=== PATIENT | male | born 1995 | race Caucasian/White ===

== ENCOUNTER 2021-05-01 12:46 | Emergency (ER) | payer OTHER ==
[2021-05-01 13:44] LABS: #Basophils 0.1 thou/uL (0.0-0.2); #Eosinphils 0.1 thou/uL (0.0-0.7); #Lymphocytes 1.7 thou/uL (1.20-3.40); #Monocytes 0.4 thou/uL (0.11-0.59); #Neutrophils 4.5 thou/uL (1.40-6.50); %Basophils 0.8 % (0.0-1.0); %Eosinophils 1.9 % (0.0-10.0); %Lymphocytes 25.4 % (21.0-51.0); %Monocytes 5.1 % (0.0-10.0); %Neutrophils 66.8 % (42.0-75.0); Mean Corpuscular Hemoglobin 28.8 pg (27.0-31.0); Mean Corpuscular Volume 84.8 fL (78.0-98.0); Mean Platelet Volume 7.9 fL (7.4-10.4); Platelet Count 199 thou/uL (130-400); RBC Distribution Width 12.6 % (11.5-14.5); Red Blood Cell (RBC) Count 5.19 mill/uL (4.70-6.10); White Blood Cell (WBC) Count 6.8 thou/uL (4.8-10.8)
[2021-05-01 14:05] LABS: ALT (SGPT) 71 U/L (8-55); AST (SGOT) 45 U/L (5-34); Albumin 4.5 g/dL (3.5-5.0); Alkaline Phosphatase 86 U/L (40-110); Anion Gap 12 mmol/L (10-20); BUN (Urea Nitrogen) 10 mg/dL (8.9-20.6); Bilirubin, Total 0.5 mg/dL (0.2-1.2); Calc. Creatinine Clearance 0 mL/min (70-130); Calcium 9.6 mg/dL (7.8-10.44); Carbon Dioxide 25 mmol/L (22-29); Chloride 106 mmol/L (98-107); Globulin 3.2 g/dL (2.4-3.5); Glucose 110 mg/dL (70-105); Potassium 4.1 mmol/L (3.5-5.1); Protein, Total 7.7 g/dL (6.0-8.3); Sodium 139 mmol/L (136-145)
[2021-05-01 15:49] LABS: Bilirubin Negative (Negative); Blood, Urine Negative (Negative); Clarity Clear (Clear); Glucose, Urine (Dipstick) Normal (Negative); Ketone, Urine Negative (Negative); Leukocyte Negative Leu/uL (Negative); Nitrite Negative (Negative); Protein, Urine (Dipstick) Negative (Neg-Trace); Specific Gravity, Urine 1.012 (1.002-1.036); Urobilinogen Normal mg/dL (Less than 2)
[2021-05-01 16:18] LABS: Acetaminophen Less than 6.0 mcg/mL (10.0-30.0); Alcohol Less than 10 mg/dL (Less than 10); Salicylate Less than 8.0 mg/dL (15.0-30.0)
[2021-05-01] MEDS ORDERED: Lorazepam 1 MG TAB ONE (17:28)
[2021-05-01 17:43] LABS: Amphetamine Not Detected (NotDetected); Barbiturates Screen Not Detected (NotDetected); Benzodiazepine Screen Not Detected (NotDetected); Cocaine Metabolite Screen Not Detected (NotDetected); Methadone Not Detected (NotDetected); Methamphetamine Not Detected (NotDetected); Opiate Screen Not Detected (NotDetected); Oxycodone Screen Not Detected (NotDetected); Phencyclidine (PCP) Not Detected (NotDetected); THC/Cannabinoid Screen Detected (NotDetected); Tricyclic Screen Not Detected (NotDetected)
== END 2021-05-01 19:35 | disposition home or self-care (01) ==
LOC: ERS 12:46
DX: F32.9 Major depressive disorder, single episode, unspecified (principal); R45.851 Suicidal ideations; I10 Essential (primary) hypertension; Z87.891 Personal history of nicotine dependence; Z79.899 Other long term (current) drug therapy
CPT/HCPCS: 36415; 71045; 80053; 80306; 80307; 81003; 84443; 84484; 85025; 93005; 94760

== ENCOUNTER 2021-06-14 14:13 | Emergency (ER) | payer OTHER ==
[2021-06-14] MEDS ORDERED: Diazepam 5 MG TAB ONE (14:39)
== END 2021-06-14 16:02 | disposition home or self-care (01) ==
LOC: ERS 14:13
DX: F41.9 Anxiety disorder, unspecified (principal); F10.10 Alcohol abuse, uncomplicated; I10 Essential (primary) hypertension; Z79.899 Other long term (current) drug therapy
CPT/HCPCS: 71045; 93005

== ENCOUNTER 2021-07-29 10:34 | Emergency (ER) | payer OTHER ==
[2021-07-29] MEDS ORDERED: Lorazepam 2 MG/ML VIAL ONE ×3 (10:55→15:02)
[2021-07-29] MEDS ORDERED: Ondansetron PF 4 MG/2 ML Vial ONE (10:55)
[2021-07-29 12:11] LABS: Acetaminophen Less than 6.0 mcg/mL (10.0-30.0); Alcohol 131 mg/dL (Less than 10); Salicylate Less than 8.0 mg/dL (15.0-30.0)
[2021-07-29 12:25] LABS: #Basophils 0.1 thou/uL (0.0-0.2); #Lymphocytes 0.9 thou/uL (1.20-3.40); #Monocytes 0.4 thou/uL (0.11-0.59); #Neutrophils 5.3 thou/uL (1.40-6.50); %Basophils 0.8 % (0.0-1.0); %Eosinophils 0.3 % (0.0-10.0); %Lymphocytes 13.3 % (21.0-51.0); %Monocytes 6.3 % (0.0-10.0); %Neutrophils 79.3 % (42.0-75.0); Hemoglobin 14.3 g/dL (14.0-18.0); Mean Corpuscular HGB CONC 33.3 g/dL (32.0-36.0); Mean Corpuscular Hemoglobin 29.3 pg (27.0-31.0); Mean Platelet Volume 6.3 fL (7.4-10.4); Platelet Count 201 thou/uL (130-400); RBC Distribution Width 11.6 % (11.5-14.5); Red Blood Cell (RBC) Count 4.89 mill/uL (4.70-6.10); White Blood Cell (WBC) Count 6.7 thou/uL (4.8-10.8)
[2021-07-29 12:49] LABS: ALT (SGPT) 60 U/L (8-55); AST (SGOT) 58 U/L (5-34); Albumin 3.9 g/dL (3.5-5.0); Alkaline Phosphatase 84 U/L (40-110); Anion Gap 18 mmol/L (10-20); BUN (Urea Nitrogen) 10 mg/dL (8.9-20.6); Bilirubin, Total 0.4 mg/dL (0.2-1.2); Calc. Creatinine Clearance 0 mL/min (70-130); Calcium 8.1 mg/dL (7.8-10.44); Carbon Dioxide 24 mmol/L (22-29); Chloride 102 mmol/L (98-107); Globulin 3.3 g/dL (2.4-3.5); Glucose 109 mg/dL (70-105); Potassium 3.8 mmol/L (3.5-5.1); Protein, Total 7.2 g/dL (6.0-8.3); Sodium 140 mmol/L (136-145)
[2021-07-29] MEDS ORDERED: Ketorolac Tromethamine 30 MG/ML VIAL ONE (13:06)
== END 2021-07-29 15:48 | disposition home or self-care (01) ==
LOC: ERS 10:34
DX: F10.10 Alcohol abuse, uncomplicated (principal); Y90.6 Blood alcohol level of 120-199 mg/100 ml; I10 Essential (primary) hypertension; Z79.899 Other long term (current) drug therapy
CPT/HCPCS: 36415; 71045; 80053; 80307; 85025; 93005; 96374; 96375; 96376; J1885; J2060; J2405

== ENCOUNTER 2021-07-30 00:29 | Emergency (ER) | payer OTHER | END 2021-07-30 04:40 | disposition home or self-care (01) | LOC: ERS 00:29 | DX: F41.9 Anxiety disorder, unspecified (principal); F10.10 Alcohol abuse, uncomplicated; Y90.9 Presence of alcohol in blood, level not specified; I10 Essential (primary) hypertension; Z79.899 Other long term (current) drug therapy | CPT/HCPCS: 99283 ==

== ENCOUNTER 2021-08-06 21:16 | Emergency (ER) | payer OTHER ==
[2021-08-06 22:01] LABS: #Basophils 0.1 thou/uL (0.0-0.2); #Eosinphils 0.1 thou/uL (0.0-0.7); #Lymphocytes 2.6 thou/uL (1.20-3.40); #Monocytes 0.3 thou/uL (0.11-0.59); %Basophils 1.1 % (0.0-1.0); %Eosinophils 1.4 % (0.0-10.0); %Lymphocytes 43.1 % (21.0-51.0); %Monocytes 4.1 % (0.0-10.0); %Neutrophils 50.4 % (42.0-75.0); Hemoglobin 15.5 g/dL (14.0-18.0); Mean Corpuscular HGB CONC 34.2 g/dL (32.0-36.0); Mean Corpuscular Hemoglobin 30.1 pg (27.0-31.0); Mean Corpuscular Volume 88.1 fL (78.0-98.0); Mean Platelet Volume 6.1 fL (7.4-10.4); Platelet Count 226 thou/uL (130-400); RBC Distribution Width 12.3 % (11.5-14.5); Red Blood Cell (RBC) Count 5.14 mill/uL (4.70-6.10)
[2021-08-06 22:20] LABS: ALT (SGPT) 76 U/L (8-55); AST (SGOT) 63 U/L (5-34); Acetaminophen Less than 6.0 mcg/mL (10.0-30.0); Albumin 4.3 g/dL (3.5-5.0); Alcohol 381 mg/dL (Less than 10); Alkaline Phosphatase 87 U/L (40-110); Anion Gap 16 mmol/L (10-20); BUN (Urea Nitrogen) 10 mg/dL (8.9-20.6); Bilirubin, Total 0.3 mg/dL (0.2-1.2); Calc. Creatinine Clearance 0 mL/min (70-130); Calcium 9.1 mg/dL (7.8-10.44); Carbon Dioxide 29 mmol/L (22-29); Chloride 103 mmol/L (98-107); Globulin 3.7 g/dL (2.4-3.5); Glucose 111 mg/dL (70-105); Lipase 70 U/L (8-78); Potassium 3.7 mmol/L (3.5-5.1); Salicylate Less than 8.0 mg/dL (15.0-30.0); Sodium 144 mmol/L (136-145)
[2021-08-06] MEDS ORDERED: Lorazepam 2 MG/ML VIAL ONE (22:21)
[2021-08-06] MEDS ORDERED: Thiamine HCl 200 MG/2 ML VIAL SLOW IVP SCH (22:30)
[2021-08-06 23:36] LABS: Amphetamine Not Detected (NotDetected); Barbiturates Screen Not Detected (NotDetected); Benzodiazepine Screen Detected (NotDetected); Cocaine Metabolite Screen Not Detected (NotDetected); Methadone Not Detected (NotDetected); Methamphetamine Not Detected (NotDetected); Opiate Screen Not Detected (NotDetected); Oxycodone Screen Not Detected (NotDetected); Phencyclidine (PCP) Not Detected (NotDetected); THC/Cannabinoid Screen Not Detected (NotDetected); Tricyclic Screen Not Detected (NotDetected)
[2021-08-07] MEDS ORDERED: Lorazepam 2 MG/ML VIAL ONE ×5 (00:08→09:42)
== END 2021-08-07 14:51 | disposition home or self-care (01) ==
LOC: ERS 21:16
DX: F10.239 Alcohol dependence with withdrawal, unspecified (principal); R45.851 Suicidal ideations; I10 Essential (primary) hypertension; Z87.891 Personal history of nicotine dependence; Z79.899 Other long term (current) drug therapy
CPT/HCPCS: 36415; 71045; 80053; 80306; 80307; 83690; 84484; 85025; 93005; 96374; 96375; 96376; J2060; J3411

== ENCOUNTER 2021-08-08 22:27 | Emergency (ER) | payer OTHER ==
[2021-08-08] MEDS ORDERED: Ondansetron ODT 4 MG TAB ONE (22:58)
[2021-08-08] MEDS ORDERED: Sucralfate 1 GM/10 ML UDCUP ONE (22:58)
== END 2021-08-08 23:48 | disposition left against medical advice (07) ==
LOC: ERS 22:27
DX: R07.9 Chest pain, unspecified (principal); Z53.21 Procedure and treatment not carried out due to patient leaving prior to being seen by health care provider; I10 Essential (primary) hypertension
CPT/HCPCS: 71045; 93005; Q0162

== ENCOUNTER 2021-08-11 19:03 | Emergency (ER) | payer OTHER | END 2021-08-11 19:55 | disposition left against medical advice (07) | LOC: ERS 19:03 | DX: F10.129 Alcohol abuse with intoxication, unspecified (principal); Y90.2 Blood alcohol level of 40-59 mg/100 ml; I10 Essential (primary) hypertension | CPT/HCPCS: 80307; 93005 ==

== ENCOUNTER 2021-08-12 02:28 | Emergency (ER) | payer OTHER | END 2021-08-12 02:51 | disposition left against medical advice (07) | LOC: ERS 02:28 | DX: Z53.21 Procedure and treatment not carried out due to patient leaving prior to being seen by health care provider (principal) ==

== ENCOUNTER 2021-08-12 13:42 | Emergency (ER) | payer OTHER | END 2021-08-12 14:28 | disposition left against medical advice (07) | LOC: ERS 13:42 | DX: Z53.21 Procedure and treatment not carried out due to patient leaving prior to being seen by health care provider (principal) ==

== ENCOUNTER 2021-08-13 01:13 | Emergency (ER) | payer OTHER ==
[2021-08-13 01:59] LABS: #Lymphocytes 1.7 thou/uL (1.20-3.40); #Monocytes 0.3 thou/uL (0.11-0.59); #Neutrophils 4.7 thou/uL (1.40-6.50); %Basophils 0.7 % (0.0-1.0); %Eosinophils 0.4 % (0.0-10.0); %Lymphocytes 24.4 % (21.0-51.0); %Monocytes 4.3 % (0.0-10.0); %Neutrophils 70.2 % (42.0-75.0); Mean Corpuscular HGB CONC 35.8 g/dL (32.0-36.0); Mean Corpuscular Hemoglobin 30.9 pg (27.0-31.0); Mean Corpuscular Volume 86.4 fL (78.0-98.0); Mean Platelet Volume 6.2 fL (7.4-10.4); Platelet Count 137 thou/uL (130-400); Red Blood Cell (RBC) Count 4.87 mill/uL (4.70-6.10); White Blood Cell (WBC) Count 6.7 thou/uL (4.8-10.8)
[2021-08-13 02:27] LABS: ALT (SGPT) 53 U/L (8-55); AST (SGOT) 59 U/L (5-34); Albumin 4.3 g/dL (3.5-5.0); Alkaline Phosphatase 81 U/L (40-110); BUN (Urea Nitrogen) 13 mg/dL (8.9-20.6); Bilirubin, Total 0.6 mg/dL (0.2-1.2); Calc. Creatinine Clearance 0 mL/min (70-130); Calcium 9.1 mg/dL (7.8-10.44); Carbon Dioxide 26 mmol/L (22-29); Globulin 3.6 g/dL (2.4-3.5); Glucose 129 mg/dL (70-105); Protein, Total 7.9 g/dL (6.0-8.3)
[2021-08-13 02:36] LABS: Anion Gap 18 mmol/L (10-20); Chloride 99 mmol/L (98-107); Potassium 3.3 mmol/L (3.5-5.1); Sodium 140 mmol/L (136-145)
== END 2021-08-13 02:00 | disposition left against medical advice (07) ==
LOC: ERS 01:13
DX: R07.89 Other chest pain (principal); E78.5 Hyperlipidemia, unspecified; I10 Essential (primary) hypertension
CPT/HCPCS: 71045; 80053; 84484; 85025; 93005

== ENCOUNTER 2021-09-26 03:56 | Emergency (ER) | payer OTHER ==
[2021-09-26 04:23] LABS: #Eosinphils 0.2 thou/uL (0.0-0.7); #Lymphocytes 3.1 thou/uL (1.20-3.40); #Monocytes 0.4 thou/uL (0.11-0.59); #Neutrophils 3.9 thou/uL (1.40-6.50); %Basophils 0.6 % (0.0-1.0); %Lymphocytes 40.5 % (21.0-51.0); %Monocytes 4.8 % (0.0-10.0); %Neutrophils 52.1 % (42.0-75.0); Hemoglobin 16.1 g/dL (14.0-18.0); Mean Corpuscular HGB CONC 33.6 g/dL (32.0-36.0); Mean Corpuscular Hemoglobin 29.3 pg (27.0-31.0); Mean Corpuscular Volume 87.2 fL (78.0-98.0); Mean Platelet Volume 6.5 fL (7.4-10.4); Platelet Count 259 thou/uL (130-400); RBC Distribution Width 12.2 % (11.5-14.5); Red Blood Cell (RBC) Count 5.49 mill/uL (4.70-6.10); White Blood Cell (WBC) Count 7.6 thou/uL (4.8-10.8)
[2021-09-26 04:49] LABS: ALT (SGPT) 59 U/L (8-55); AST (SGOT) 39 U/L (5-34); Albumin 4.4 g/dL (3.5-5.0); Alcohol 279 mg/dL (Less than 10); Alkaline Phosphatase 72 U/L (40-110); Anion Gap 18 mmol/L (10-20); BUN (Urea Nitrogen) 12 mg/dL (8.9-20.6); Bilirubin, Total 0.4 mg/dL (0.2-1.2); Calc. Creatinine Clearance 0 mL/min (70-130); Calcium 9.1 mg/dL (7.8-10.44); Carbon Dioxide 25 mmol/L (22-29); Chloride 105 mmol/L (98-107); Globulin 3.4 g/dL (2.4-3.5); Glucose 110 mg/dL (70-105); Potassium 3.9 mmol/L (3.5-5.1); Protein, Total 7.8 g/dL (6.0-8.3); Sodium 144 mmol/L (136-145)
[2021-09-26] MEDS ORDERED: chlordiazePOXIDE HCl 25 MG CAP PO SCH (05:30)
[2021-09-26] MEDS ORDERED: Ondansetron PF 4 MG/2 ML Vial ONE (05:36)
== END 2021-09-26 06:06 | disposition home or self-care (01) ==
LOC: ERS 03:56
DX: F10.10 Alcohol abuse, uncomplicated (principal); R07.9 Chest pain, unspecified; I10 Essential (primary) hypertension; E78.5 Hyperlipidemia, unspecified; R00.0 Tachycardia, unspecified; Z79.899 Other long term (current) drug therapy
CPT/HCPCS: 71045; 80053; 80307; 84484; 85025; 93005; 96374; J2405

== ENCOUNTER 2021-10-07 00:55 | Emergency (ER) | payer OTHER | END 2021-10-07 01:28 | disposition left against medical advice (07) | LOC: ERS 00:55 | DX: F10.129 Alcohol abuse with intoxication, unspecified (principal); I10 Essential (primary) hypertension; E78.5 Hyperlipidemia, unspecified; Z87.19 Personal history of other diseases of the digestive system ==

== ENCOUNTER 2021-10-07 22:36 | Emergency (ER) | payer OTHER | END 2021-10-07 22:41 | disposition left against medical advice (07) | LOC: ERS 22:36 | DX: Z53.21 Procedure and treatment not carried out due to patient leaving prior to being seen by health care provider (principal) ==

== ENCOUNTER 2021-10-08 23:52 | Emergency (ER) | payer OTHER | END 2021-10-09 02:52 | disposition home or self-care (01) | LOC: ERS 23:52 | DX: F41.9 Anxiety disorder, unspecified (principal); R00.0 Tachycardia, unspecified; F43.10 Post-traumatic stress disorder, unspecified; Z79.899 Other long term (current) drug therapy | CPT/HCPCS: 93005 ==

== ENCOUNTER 2021-11-14 10:31 | Emergency (ER) | payer OTHER ==
[2021-11-14] MEDS ORDERED: Lorazepam 2 MG/ML VIAL ONE (10:44)
[2021-11-14] MEDS ORDERED: Ondansetron PF 4 MG/2 ML Vial ONE (11:23)
[2021-11-14 11:24] LABS: #Basophils 0.1 thou/uL (0.0-0.2); #Lymphocytes 1.9 thou/uL (1.20-3.40); #Monocytes 0.6 thou/uL (0.11-0.59); #Neutrophils 5.1 thou/uL (1.40-6.50); %Basophils 0.7 % (0.0-1.0); %Eosinophils 0.6 % (0.0-10.0); %Lymphocytes 25.1 % (21.0-51.0); %Monocytes 7.4 % (0.0-10.0); %Neutrophils 66.1 % (42.0-75.0); Mean Corpuscular HGB CONC 34.2 g/dL (32.0-36.0); Mean Corpuscular Hemoglobin 30.2 pg (27.0-31.0); Mean Corpuscular Volume 88.3 fL (78.0-98.0); Platelet Count 220 thou/uL (130-400); RBC Distribution Width 12.8 % (11.5-14.5); Red Blood Cell (RBC) Count 5.64 mill/uL (4.70-6.10); White Blood Cell (WBC) Count 7.7 thou/uL (4.8-10.8)
[2021-11-14] MEDS ORDERED: chlordiazePOXIDE HCl 25 MG CAP PO SCH (11:30)
[2021-11-14 11:44] LABS: ALT (SGPT) 61 U/L (8-55); AST (SGOT) 65 U/L (5-34); Albumin 4.8 g/dL (3.5-5.0); Alkaline Phosphatase 97 U/L (40-110); Anion Gap 26 mmol/L (10-20); BUN (Urea Nitrogen) 11 mg/dL (8.9-20.6); Bilirubin, Total 0.7 mg/dL (0.2-1.2); Calc. Creatinine Clearance 0 mL/min (70-130); Calcium 9.3 mg/dL (7.8-10.44); Carbon Dioxide 18 mmol/L (22-29); Chloride 100 mmol/L (98-107); Globulin 4.2 g/dL (2.4-3.5); Glucose 125 mg/dL (70-105); Potassium 4.5 mmol/L (3.5-5.1); Sodium 139 mmol/L (136-145)
== END 2021-11-14 13:11 | disposition home or self-care (01) ==
LOC: ERS 10:31
DX: F41.9 Anxiety disorder, unspecified (principal); F10.20 Alcohol dependence, uncomplicated; R11.2 Nausea with vomiting, unspecified; E78.5 Hyperlipidemia, unspecified; Z79.899 Other long term (current) drug therapy
CPT/HCPCS: 80053; 85025; 96374; 96375; J2060; J2405

== ENCOUNTER 2021-12-20 06:41 | Emergency (ER) | payer OTHER ==
[2021-12-20] MEDS ORDERED: Lorazepam 2 MG/ML VIAL ONE (07:33)
[2021-12-20 08:00] LABS: #Lymphocytes 1.3 thou/uL (1.20-3.40); #Monocytes 0.3 thou/uL (0.11-0.59); #Neutrophils 4.2 thou/uL (1.40-6.50); %Basophils 0.7 % (0.0-1.0); %Eosinophils 0.8 % (0.0-10.0); %Lymphocytes 22.2 % (21.0-51.0); %Monocytes 5.6 % (0.0-10.0); %Neutrophils 70.7 % (42.0-75.0); Hemoglobin 16.1 g/dL (14.0-18.0); Mean Corpuscular HGB CONC 34.1 g/dL (32.0-36.0); Mean Corpuscular Volume 87.8 fL (78.0-98.0); Mean Platelet Volume 6.8 fL (7.4-10.4); Platelet Count 189 thou/uL (130-400); RBC Distribution Width 12.6 % (11.5-14.5); Red Blood Cell (RBC) Count 5.39 mill/uL (4.70-6.10); White Blood Cell (WBC) Count 5.9 thou/uL (4.8-10.8)
[2021-12-20] MEDS ORDERED: Ondansetron PF 4 MG/2 ML Vial ONE (08:00)
[2021-12-20] MEDS ORDERED: chlordiazePOXIDE HCl 25 MG CAP PO SCH (08:00)
[2021-12-20 08:09] LABS: ALT (SGPT) 68 U/L (8-55); AST (SGOT) 77 U/L (5-34); Albumin 4.4 g/dL (3.5-5.0); Alkaline Phosphatase 73 U/L (40-110); Anion Gap 19 mmol/L (10-20); BUN (Urea Nitrogen) 10 mg/dL (8.9-20.6); Bilirubin, Total 1.3 mg/dL (0.2-1.2); Calc. Creatinine Clearance 0 mL/min (70-130); Calcium 9.6 mg/dL (7.8-10.44); Carbon Dioxide 21 mmol/L (22-29); Chloride 103 mmol/L (98-107); Globulin 3.9 g/dL (2.4-3.5); Glucose 129 mg/dL (70-105); Lipase 40 U/L (8-78); Magnesium 1.5 mg/dL (1.6-2.6); Protein, Total 8.3 g/dL (6.0-8.3); Sodium 139 mmol/L (136-145)
[2021-12-20] MEDS ORDERED: Magnesium 2 GM/50 ML BAG (IN WATER) ONE (09:38)
== END 2021-12-20 10:00 | disposition home or self-care (01) ==
LOC: ERS 06:41
DX: F10.139 Alcohol abuse with withdrawal, unspecified (principal); E83.42 Hypomagnesemia; R11.2 Nausea with vomiting, unspecified; E78.5 Hyperlipidemia, unspecified; Z79.899 Other long term (current) drug therapy
CPT/HCPCS: 36415; 71045; 80053; 83690; 83735; 84484; 85025; 93005; 96361; 96365; 96375; J2060; J2405; J3475

== ENCOUNTER 2022-01-07 15:07 | Observation (INO) | payer OTHER ==
[2022-01-07 16:01] LABS: #Basophils 0.1 thou/uL (0.0-0.2); #Lymphocytes 1.4 thou/uL (1.20-3.40); #Monocytes 0.6 thou/uL (0.11-0.59); %Basophils 0.5 % (0.0-1.0); %Eosinophils 0.2 % (0.0-10.0); %Lymphocytes 11.7 % (21.0-51.0); %Monocytes 5.2 % (0.0-10.0); %Neutrophils 82.4 % (42.0-75.0); Hemoglobin 17.7 g/dL (14.0-18.0); Mean Corpuscular HGB CONC 34.3 g/dL (32.0-36.0); Mean Corpuscular Hemoglobin 29.5 pg (27.0-31.0); Mean Corpuscular Volume 86.1 fL (78.0-98.0); Mean Platelet Volume 6.8 fL (7.4-10.4); Platelet Count 359 thou/uL (130-400); RBC Distribution Width 12.7 % (11.5-14.5); Red Blood Cell (RBC) Count 6.01 mill/uL (4.70-6.10); White Blood Cell (WBC) Count 12.2 thou/uL (4.8-10.8)
[2022-01-07] MEDS ORDERED: Ondansetron PF 4 MG/2 ML Vial ONE (16:09)
[2022-01-07] MEDS ORDERED: Lorazepam 2 MG/ML VIAL ONE ×2 (16:09→17:52)
[2022-01-07 16:24] LABS: ALT (SGPT) 134 U/L (8-55); AST (SGOT) 76 U/L (5-34); Alkaline Phosphatase 94 U/L (40-110); Anion Gap 22 mmol/L (10-20); BUN (Urea Nitrogen) 7 mg/dL (8.9-20.6); Bilirubin, Total 1.1 mg/dL (0.2-1.2); Calc. Creatinine Clearance 0 mL/min (70-130); Calcium 9.9 mg/dL (7.8-10.44); Carbon Dioxide 21 mmol/L (22-29); Chloride 101 mmol/L (98-107); Globulin 4.3 g/dL (2.4-3.5); Glucose 128 mg/dL (70-105); Lipase 24 U/L (8-78); Potassium 6.2 mmol/L (3.5-5.1); Protein, Total 9.3 g/dL (6.0-8.3); Sodium 138 mmol/L (136-145)
[2022-01-07] MEDS ORDERED: Thiamine HCl 200 MG/2 ML VIAL SLOW IVP SCH ×2 (16:30→21:00)
[2022-01-07 16:45] LABS: Bilirubin Negative (Negative); Blood, Urine Negative (Negative); Clarity Clear (Clear); Glucose, Urine (Dipstick) 30 mg/dL (Negative); Ketone, Urine Negative (Negative); Leukocyte Negative Leu/uL (Negative); Nitrite Negative (Negative); Protein, Urine (Dipstick) 100 mg/dL (Neg-Trace); RBC/HPF 0-3 HPF (0-3); Squamous Epithelial None Seen HPF (0-3); Urobilinogen Normal mg/dL (Less than 2); pH, Urine 6.5 (5.0-9.0)
[2022-01-07 16:46] LABS: Bacteria/HPF 1+ HPF (None Seen)
[2022-01-07 18:02] LABS: Anion Gap 16 mmol/L (10-20); BUN (Urea Nitrogen) 7 mg/dL (8.9-20.6); Calc. Creatinine Clearance 0 mL/min (70-130); Calcium 8.9 mg/dL (7.8-10.44); Carbon Dioxide 25 mmol/L (22-29); Chloride 102 mmol/L (98-107); Glucose 106 mg/dL (70-105); Potassium 4.9 mmol/L (3.5-5.1); Sodium 138 mmol/L (136-145)
[2022-01-07 18:43] LABS: Amphetamine Not Detected (NotDetected); Barbiturates Screen Not Detected (NotDetected); Benzodiazepine Screen Detected (NotDetected); Cocaine Metabolite Screen Not Detected (NotDetected); Methadone Not Detected (NotDetected); Methamphetamine Not Detected (NotDetected); Opiate Screen Not Detected (NotDetected); Oxycodone Screen Not Detected (NotDetected); Phencyclidine (PCP) Not Detected (NotDetected); THC/Cannabinoid Screen Detected (NotDetected); Tricyclic Screen Not Detected (NotDetected)
[2022-01-07] MEDS ORDERED: Ondansetron ODT 4 MG TAB PO PRN (19:47)
[2022-01-07] MEDS ORDERED: Lorazepam 2 MG/ML VIAL IM PRN (19:47)
[2022-01-07] MEDS ORDERED: Ondansetron PF 4 MG/2 ML Vial IVP PRN (19:47)
[2022-01-07] MEDS ORDERED: Lorazepam 1 MG TAB PO PRN (19:47)
[2022-01-07] MEDS ORDERED: HYDROcodone/Acetaminophen 7.5/325 mg Tablet PO PRN (19:47)
[2022-01-07] MEDS ORDERED: Electrolyte Replacement Protocol 1 EACH FS PRN (20:00)
[2022-01-07 20:17] LABS: #Lymphocytes 1.5 thou/uL (1.20-3.40); #Monocytes 0.9 thou/uL (0.11-0.59); #Neutrophils 9.1 thou/uL (1.40-6.50); %Basophils 0.4 % (0.0-1.0); %Eosinophils 0.4 % (0.0-10.0); %Monocytes 7.7 % (0.0-10.0); %Neutrophils 78.5 % (42.0-75.0); Hemoglobin 14.8 g/dL (14.0-18.0); Mean Corpuscular HGB CONC 33.8 g/dL (32.0-36.0); Mean Corpuscular Hemoglobin 29.6 pg (27.0-31.0); Mean Corpuscular Volume 87.5 fL (78.0-98.0); Mean Platelet Volume 6.9 fL (7.4-10.4); Platelet Count 270 thou/uL (130-400); RBC Distribution Width 12.6 % (11.5-14.5); Red Blood Cell (RBC) Count 5.01 mill/uL (4.70-6.10); White Blood Cell (WBC) Count 11.5 thou/uL (4.8-10.8)
[2022-01-07 20:37] LABS: ALT (SGPT) 104 U/L (8-55); AST (SGOT) 58 U/L (5-34); Albumin 4.2 g/dL (3.5-5.0); Alkaline Phosphatase 80 U/L (40-110); Anion Gap 15 mmol/L (10-20); BUN (Urea Nitrogen) 8 mg/dL (8.9-20.6); Bilirubin, Total 1.3 mg/dL (0.2-1.2); Calc. Creatinine Clearance 0 mL/min (70-130); Calcium 8.5 mg/dL (7.8-10.44); Carbon Dioxide 27 mmol/L (22-29); Chloride 102 mmol/L (98-107); Glucose 107 mg/dL (70-105); Magnesium 1.2 mg/dL (1.6-2.6); Potassium 4.4 mmol/L (3.5-5.1); Protein, Total 7.2 g/dL (6.0-8.3); Sodium 140 mmol/L (136-145)
[2022-01-07 20:38] LABS: Bilirubin, Direct 0.6 mg/dL (0.1-0.3); Phosphorus 2.9 mg/dL (2.3-4.7)
[2022-01-07] MEDS ORDERED: Magnesium Sulfate In Water 4 GM in Premix Bag 1 BAG IVPB SCH (21:15)
[2022-01-07 21:27] VITALS: BMI 30.6
[2022-01-07] MEDS: Metoprolol Tartrate 25 MG TAB PO SCH (21:44)
[2022-01-07] MEDS: Lorazepam 1 MG TAB PO SCH (21:44)
[2022-01-07] MEDS: Sodium Chloride 0.9% 1,000 ML IV SCH (21:45)
[2022-01-07] MEDS ORDERED: traZODone HCl 50 MG TAB PO PRN (22:50)
[2022-01-08] MEDS: Lorazepam 1 MG TAB PO SCH ×3 (01:28→14:05)
[2022-01-08 04:54] LABS: Anion Gap 13 mmol/L (10-20); BUN (Urea Nitrogen) 10 mg/dL (8.9-20.6); Calc. Creatinine Clearance 154 mL/min (70-130); Calcium 8.2 mg/dL (7.8-10.44); Carbon Dioxide 27 mmol/L (22-29); Chloride 101 mmol/L (98-107); Glucose 95 mg/dL (70-105); Magnesium 2.8 mg/dL (1.6-2.6); Potassium 3.7 mmol/L (3.5-5.1); Sodium 137 mmol/L (136-145)
[2022-01-08] MEDS: Metoprolol Tartrate 25 MG TAB PO SCH (08:10)
[2022-01-08] MEDS: Sodium Chloride 0.9% 1,000 ML IV SCH (08:12)
[2022-01-08] MEDS ORDERED: Folic Acid 1 MG TAB PO SCH (09:00)
[2022-01-08] MEDS ORDERED: Multivit, Therapeutic 1 TAB PO SCH (09:00)
[2022-01-08] MEDS ORDERED: Gabapentin 300 MG CAP PO SCH (09:00)
[2022-01-08 16:26] VITALS: BP 120/62; TEMP 98
[2022-01-08] MEDS ORDERED: Lorazepam 1 MG TAB PO PRN (19:48)
[2022-01-09] MEDS ORDERED: Lorazepam 1 MG TAB PO PRN (19:48)
[2022-01-09] MEDS ORDERED: Lorazepam 0.5 MG TAB PO SCH (20:00)
[2022-01-10] MEDS ORDERED: Lorazepam 0.5 MG TAB PO PRN (19:48)
[2022-01-10] MEDS ORDERED: Thiamine 100 MG TAB PO SCH (20:00)
== END 2022-01-08 16:15 | disposition home or self-care (01) ==
LOC: ERS 15:07 → 2NO 19:29
PROVIDERS: ADMIT Hospitalist; ATTEND Hospitalist
DX: R11.2 Nausea with vomiting, unspecified (principal); R00.0 Tachycardia, unspecified; I10 Essential (primary) hypertension; E87.5 Hyperkalemia; F12.10 Cannabis abuse, uncomplicated; Z79.899 Other long term (current) drug therapy; Z88.8 Allergy status to other drugs, medicaments and biological substances; Z20.822 Contact with and (suspected) exposure to COVID-19
CPT/HCPCS: 36415; 80048; 80053; 80306; 81003; 81015; 82248; 83690; 83735; 84100; 84484; 85025; 93005; 96361; 96365; 96375; 96376; G0378; J2060; J2405; J3411; J3475; J7050; U0003; U0005

== ENCOUNTER 2022-01-21 12:17 | Emergency (ER) | payer OTHER ==
[2022-01-21 12:52] LABS: #Eosinphils 0.2 thou/uL (0.0-0.7); #Lymphocytes 2.9 thou/uL (1.20-3.40); #Monocytes 0.6 thou/uL (0.11-0.59); #Neutrophils 5.4 thou/uL (1.40-6.50); %Basophils 0.3 % (0.0-1.0); %Monocytes 6.1 % (0.0-10.0); %Neutrophils 59.6 % (42.0-75.0); Hemoglobin 17.4 g/dL (14.0-18.0); Mean Corpuscular HGB CONC 34.6 g/dL (32.0-36.0); Mean Corpuscular Hemoglobin 30.3 pg (27.0-31.0); Mean Corpuscular Volume 87.7 fL (78.0-98.0); Mean Platelet Volume 6.3 fL (7.4-10.4); Platelet Count 255 thou/uL (130-400); RBC Distribution Width 12.5 % (11.5-14.5); Red Blood Cell (RBC) Count 5.74 mill/uL (4.70-6.10); White Blood Cell (WBC) Count 9.1 thou/uL (4.8-10.8)
[2022-01-21 13:12] LABS: Acetaminophen Less than 10.0 mcg/mL (10.0-30.0); Alcohol 372 mg/dL (Less than 10); Salicylate Less than 8.0 mg/dL (15.0-30.0)
[2022-01-21 13:22] LABS: ALT (SGPT) 118 U/L (8-55); AST (SGOT) 66 U/L (5-34); Albumin 4.6 g/dL (3.5-5.0); Alkaline Phosphatase 97 U/L (40-110); Anion Gap 20 mmol/L (10-20); BUN (Urea Nitrogen) 4 mg/dL (8.9-20.6); Bilirubin, Total 0.6 mg/dL (0.2-1.2); Calc. Creatinine Clearance 0 mL/min (70-130); Calcium 9.7 mg/dL (7.8-10.44); Carbon Dioxide 23 mmol/L (22-29); Chloride 103 mmol/L (98-107); Glucose 136 mg/dL (70-105); Potassium 3.8 mmol/L (3.5-5.1); Protein, Total 8.6 g/dL (6.0-8.3); Sodium 142 mmol/L (136-145)
[2022-01-21] MEDS ORDERED: Lorazepam 2 MG/ML VIAL ONE ×2 (13:32→23:16)
[2022-01-21 13:38] LABS: Bilirubin Negative (Negative); Blood, Urine Negative (Negative); Clarity Clear (Clear); Glucose, Urine (Dipstick) Normal (Negative); Ketone, Urine Negative (Negative); Leukocyte Negative Leu/uL (Negative); Nitrite Negative (Negative); Protein, Urine (Dipstick) Negative (Neg-Trace); Specific Gravity, Urine 1.005 (1.002-1.036); Urobilinogen Normal mg/dL (Less than 2); pH, Urine 5.5 (5.0-9.0)
[2022-01-21 13:42] LABS: Amphetamine Not Detected (NotDetected); Barbiturates Screen Not Detected (NotDetected); Benzodiazepine Screen Detected (NotDetected); Cocaine Metabolite Screen Not Detected (NotDetected); Methadone Not Detected (NotDetected); Methamphetamine Not Detected (NotDetected); Opiate Screen Not Detected (NotDetected); Oxycodone Screen Not Detected (NotDetected); Phencyclidine (PCP) Not Detected (NotDetected); THC/Cannabinoid Screen Not Detected (NotDetected); Tricyclic Screen Not Detected (NotDetected)
[2022-01-21] MEDS ORDERED: chlordiazePOXIDE HCl 25 MG CAP PO SCH ×2 (14:30→19:00)
[2022-01-21] MEDS ORDERED: Ondansetron PF 4 MG/2 ML Vial ONE (18:41)
[2022-01-22] MEDS ORDERED: chlordiazePOXIDE HCl 25 MG CAP PO PRN (04:05)
[2022-01-22] MEDS ORDERED: Lorazepam 2 MG/ML VIAL ONE (05:15)
== END 2022-01-22 05:50 | disposition home or self-care (01) ==
LOC: ERS 12:17
DX: F10.129 Alcohol abuse with intoxication, unspecified (principal); F32.A Depression, unspecified; R00.0 Tachycardia, unspecified; I10 Essential (primary) hypertension; Y90.8 Blood alcohol level of 240 mg/100 ml or more; Z79.899 Other long term (current) drug therapy
CPT/HCPCS: 36415; 71045; 80053; 80306; 80307; 81003; 83735; 84443; 85025; 93005; 96374; 96375; 96376; J2060; J2405; J3411

== ENCOUNTER 2022-02-05 20:27 | Emergency (ER) | payer OTHER ==
[2022-02-05 21:24] LABS: #Basophils 0.1 thou/uL (0.0-0.2); #Eosinphils 0.1 thou/uL (0.0-0.7); #Lymphocytes 2.4 thou/uL (1.20-3.40); #Monocytes 0.5 thou/uL (0.11-0.59); #Neutrophils 3.7 thou/uL (1.40-6.50); %Basophils 0.9 % (0.0-1.0); %Eosinophils 1.7 % (0.0-10.0); %Lymphocytes 35.7 % (21.0-51.0); %Monocytes 6.9 % (0.0-10.0); %Neutrophils 54.8 % (42.0-75.0); Hemoglobin 16.2 g/dL (14.0-18.0); Mean Corpuscular Hemoglobin 29.8 pg (27.0-31.0); Mean Corpuscular Volume 90.4 fL (78.0-98.0); Platelet Count 231 thou/uL (130-400); RBC Distribution Width 12.6 % (11.5-14.5); Red Blood Cell (RBC) Count 5.44 mill/uL (4.70-6.10); White Blood Cell (WBC) Count 6.8 thou/uL (4.8-10.8)
[2022-02-05 21:47] LABS: ALT (SGPT) 164 U/L (8-55); AST (SGOT) 95 U/L (5-34); Acetaminophen Less than 10.0 mcg/mL (10.0-30.0); Albumin 4.2 g/dL (3.5-5.0); Alcohol 397 mg/dL (Less than 10); Alkaline Phosphatase 80 U/L (40-110); Anion Gap 18 mmol/L (10-20); BUN (Urea Nitrogen) 7 mg/dL (8.9-20.6); Bilirubin, Total 0.5 mg/dL (0.2-1.2); Calc. Creatinine Clearance 0 mL/min (70-130); Calcium 8.8 mg/dL (7.8-10.44); Carbon Dioxide 27 mmol/L (22-29); Chloride 108 mmol/L (98-107); Estimated GFR 98; Globulin 3.5 g/dL (2.4-3.5); Glucose 113 mg/dL (70-105); Potassium 3.6 mmol/L (3.5-5.1); Protein, Total 7.7 g/dL (6.0-8.3); Salicylate Less than 8.0 mg/dL (15.0-30.0); Sodium 149 mmol/L (136-145)
[2022-02-05 21:53] LABS: Bilirubin Negative (Negative); Blood, Urine Negative (Negative); Clarity Clear (Clear); Glucose, Urine (Dipstick) Normal (Negative); Ketone, Urine Negative (Negative); Leukocyte Negative Leu/uL (Negative); Nitrite Negative (Negative); Protein, Urine (Dipstick) Negative (Neg-Trace); Specific Gravity, Urine 1.018 (1.002-1.036); Urobilinogen Normal mg/dL (Less than 2)
[2022-02-05 22:04] LABS: Amphetamine Not Detected (NotDetected); Barbiturates Screen Not Detected (NotDetected); Benzodiazepine Screen Detected (NotDetected); Cocaine Metabolite Screen Not Detected (NotDetected); Methadone Not Detected (NotDetected); Methamphetamine Not Detected (NotDetected); Opiate Screen Not Detected (NotDetected); Oxycodone Screen Not Detected (NotDetected); Phencyclidine (PCP) Not Detected (NotDetected); THC/Cannabinoid Screen Not Detected (NotDetected); Tricyclic Screen Not Detected (NotDetected)
== END 2022-02-05 21:46 | disposition home or self-care (01) ==
LOC: ERS 20:27
DX: F10.10 Alcohol abuse, uncomplicated (principal); I10 Essential (primary) hypertension
CPT/HCPCS: 36415; 80053; 80306; 80307; 81003; 84443; 85025; 99284

== ENCOUNTER 2022-02-10 09:15 | Emergency (ER) | payer OTHER ==
[2022-02-10] MEDS ORDERED: Lorazepam 2 MG/ML VIAL ONE (10:00)
[2022-02-10 10:08] LABS: #Basophils 0.1 thou/uL (0.0-0.2); #Eosinphils 0.1 thou/uL (0.0-0.7); #Lymphocytes 2.7 thou/uL (1.20-3.40); #Monocytes 0.4 thou/uL (0.11-0.59); #Neutrophils 3.4 thou/uL (1.40-6.50); %Eosinophils 1.4 % (0.0-10.0); %Lymphocytes 39.8 % (21.0-51.0); %Monocytes 6.4 % (0.0-10.0); %Neutrophils 51.4 % (42.0-75.0); Hemoglobin 17.7 g/dL (14.0-18.0); Mean Corpuscular HGB CONC 33.3 g/dL (32.0-36.0); Mean Corpuscular Volume 87.1 fL (78.0-98.0); Mean Platelet Volume 6.7 fL (7.4-10.4); Platelet Count 207 thou/uL (130-400); RBC Distribution Width 12.2 % (11.5-14.5); Red Blood Cell (RBC) Count 6.09 mill/uL (4.70-6.10); White Blood Cell (WBC) Count 6.7 thou/uL (4.8-10.8)
[2022-02-10 10:26] LABS: ALT (SGPT) 98 U/L (8-55); AST (SGOT) 81 U/L (5-34); Albumin 4.4 g/dL (3.5-5.0); Alkaline Phosphatase 90 U/L (40-110); Anion Gap 20 mmol/L (10-20); BUN (Urea Nitrogen) 14 mg/dL (8.9-20.6); Bilirubin, Total 0.8 mg/dL (0.2-1.2); Calc. Creatinine Clearance 0 mL/min (70-130); Calcium 9.1 mg/dL (7.8-10.44); Carbon Dioxide 25 mmol/L (22-29); Chloride 101 mmol/L (98-107); Estimated GFR 108; Glucose 107 mg/dL (70-105); Potassium 4.1 mmol/L (3.5-5.1); Protein, Total 8.4 g/dL (6.0-8.3); Sodium 142 mmol/L (136-145)
[2022-02-10] MEDS ORDERED: Metoclopramide HCl 10 MG/2 ML VIAL ONE (11:07)
== END 2022-02-10 11:30 | disposition home or self-care (01) ==
LOC: ERS 09:15
DX: F10.10 Alcohol abuse, uncomplicated (principal); R74.01 Elevation of levels of liver transaminase levels; I10 Essential (primary) hypertension; Z79.899 Other long term (current) drug therapy
CPT/HCPCS: 36415; 70450; 72125; 80053; 85025; 93005; 96361; 96374; 96375; J2060; J2765

== ENCOUNTER 2022-02-11 00:38 | Emergency (ER) | payer OTHER ==
[2022-02-11] MEDS ORDERED: Thiamine HCl 200 MG/2 ML VIAL SLOW IVP SCH (01:15)
[2022-02-11] MEDS ORDERED: Acetaminophen 500 MG TAB ONE (02:29)
== END 2022-02-11 02:34 | disposition home or self-care (01) ==
LOC: ERS 00:38
DX: T42.4X1A Poisoning by benzodiazepines, accidental (unintentional), initial encounter (principal); R11.0 Nausea; R42 Dizziness and giddiness; F10.10 Alcohol abuse, uncomplicated; I10 Essential (primary) hypertension; Z79.899 Other long term (current) drug therapy
CPT/HCPCS: J3411

== ENCOUNTER 2022-02-11 04:43 | Emergency (ER) | payer OTHER ==
[2022-02-11] MEDS ORDERED: Ondansetron ODT 4 MG TAB ONE (05:34)
== END 2022-02-11 05:45 | disposition home or self-care (01) ==
LOC: ERS 04:43
DX: F41.9 Anxiety disorder, unspecified (principal); F10.10 Alcohol abuse, uncomplicated; R11.0 Nausea; I10 Essential (primary) hypertension; T42.4X1A Poisoning by benzodiazepines, accidental (unintentional), initial encounter; R42 Dizziness and giddiness; Z79.899 Other long term (current) drug therapy; R74.01 Elevation of levels of liver transaminase levels
CPT/HCPCS: 36415; 70450; 72125; 80053; 85025; 93005; 96361; 96374; 96375; 99283; J2060; J2765; J3411; Q0162

== ENCOUNTER 2022-02-28 17:14 | Emergency (ER) | payer OTHER ==
[2022-02-28] MEDS ORDERED: Ondansetron PF 4 MG/2 ML Vial ONE (17:41)
[2022-02-28 17:50] LABS: #Basophils 0.1 thou/uL (0.0-0.2); #Eosinphils 0.1 thou/uL (0.0-0.7); #Lymphocytes 2.3 thou/uL (1.20-3.40); #Monocytes 0.5 thou/uL (0.11-0.59); #Neutrophils 3.5 thou/uL (1.40-6.50); %Basophils 0.8 % (0.0-1.0); %Eosinophils 1.3 % (0.0-10.0); %Lymphocytes 36.2 % (21.0-51.0); %Monocytes 7.3 % (0.0-10.0); %Neutrophils 54.4 % (42.0-75.0); Hemoglobin 15.7 g/dL (14.0-18.0); Mean Corpuscular HGB CONC 33.5 g/dL (32.0-36.0); Mean Corpuscular Volume 89.5 fL (78.0-98.0); Mean Platelet Volume 6.8 fL (7.4-10.4); Platelet Count 208 thou/uL (130-400); RBC Distribution Width 12.3 % (11.5-14.5); Red Blood Cell (RBC) Count 5.24 mill/uL (4.70-6.10); White Blood Cell (WBC) Count 6.4 thou/uL (4.8-10.8)
[2022-02-28 18:12] LABS: ALT (SGPT) 84 U/L (8-55); AST (SGOT) 70 U/L (5-34); Acetaminophen Less than 10.0 mcg/mL (10.0-30.0); Albumin 4.3 g/dL (3.5-5.0); Alkaline Phosphatase 82 U/L (40-110); Anion Gap 19 mmol/L (10-20); BUN (Urea Nitrogen) 10 mg/dL (8.9-20.6); Bilirubin, Total 0.7 mg/dL (0.2-1.2); CK (CPK) 383 U/L (30-200); Calc. Creatinine Clearance 0 mL/min (70-130); Calcium 8.9 mg/dL (7.8-10.44); Carbon Dioxide 22 mmol/L (22-29); Chloride 105 mmol/L (98-107); Estimated GFR 116; Globulin 3.8 g/dL (2.4-3.5); Glucose 102 mg/dL (70-105); Lipase 80 U/L (8-78); Potassium 3.8 mmol/L (3.5-5.1); Protein, Total 8.1 g/dL (6.0-8.3); Salicylate Less than 8.0 mg/dL (15.0-30.0); Sodium 142 mmol/L (136-145)
[2022-02-28 18:20] LABS: Alcohol 408 mg/dL (Less than 10)
[2022-02-28 18:26] LABS: Amphetamine Not Detected (NotDetected); Barbiturates Screen Not Detected (NotDetected); Benzodiazepine Screen Detected (NotDetected); Cocaine Metabolite Screen Not Detected (NotDetected); Methadone Not Detected (NotDetected); Methamphetamine Not Detected (NotDetected); Opiate Screen Not Detected (NotDetected); Oxycodone Screen Not Detected (NotDetected); Phencyclidine (PCP) Not Detected (NotDetected); THC/Cannabinoid Screen Not Detected (NotDetected); Tricyclic Screen Not Detected (NotDetected)
== END 2022-02-28 21:54 | disposition home or self-care (01) ==
LOC: ERS 17:14
DX: F10.129 Alcohol abuse with intoxication, unspecified (principal); I10 Essential (primary) hypertension; Y90.8 Blood alcohol level of 240 mg/100 ml or more
CPT/HCPCS: 36415; 80053; 80306; 80307; 82550; 83690; 84484; 85025; 93005; 96361; 96374; J2405

== ENCOUNTER 2022-03-01 08:17 | Emergency (ER) | payer OTHER ==
[2022-03-01] MEDS ORDERED: Lorazepam 1 MG TAB ONE (09:04)
[2022-03-01 09:26] LABS: #Eosinphils 0.1 thou/uL (0.0-0.7); #Lymphocytes 1.9 thou/uL (1.20-3.40); #Monocytes 0.4 thou/uL (0.11-0.59); %Basophils 0.7 % (0.0-1.0); %Eosinophils 0.9 % (0.0-10.0); %Lymphocytes 29.4 % (21.0-51.0); %Monocytes 6.6 % (0.0-10.0); %Neutrophils 62.3 % (42.0-75.0); Hemoglobin 14.4 g/dL (14.0-18.0); Mean Corpuscular HGB CONC 32.7 g/dL (32.0-36.0); Mean Corpuscular Hemoglobin 29.1 pg (27.0-31.0); Platelet Count 175 thou/uL (130-400); RBC Distribution Width 12.3 % (11.5-14.5); Red Blood Cell (RBC) Count 4.96 mill/uL (4.70-6.10); White Blood Cell (WBC) Count 6.4 thou/uL (4.8-10.8)
[2022-03-01 09:49] LABS: ALT (SGPT) 72 U/L (8-55); AST (SGOT) 67 U/L (5-34); Albumin 4.3 g/dL (3.5-5.0); Alkaline Phosphatase 78 U/L (40-110); Anion Gap 20 mmol/L (10-20); BUN (Urea Nitrogen) 9 mg/dL (8.9-20.6); Bilirubin, Total 0.9 mg/dL (0.2-1.2); Calc. Creatinine Clearance 0 mL/min (70-130); Calcium 8.9 mg/dL (7.8-10.44); Carbon Dioxide 19 mmol/L (22-29); Chloride 102 mmol/L (98-107); Estimated GFR 124; Globulin 3.5 g/dL (2.4-3.5); Glucose 90 mg/dL (70-105); Lipase 73 U/L (8-78); Potassium 3.6 mmol/L (3.5-5.1); Protein, Total 7.8 g/dL (6.0-8.3); Sodium 137 mmol/L (136-145)
== END 2022-03-01 13:01 | disposition home or self-care (01) ==
LOC: ERS 08:17
DX: F10.239 Alcohol dependence with withdrawal, unspecified (principal); F41.9 Anxiety disorder, unspecified; I10 Essential (primary) hypertension
CPT/HCPCS: 36415; 71045; 80053; 80306; 80307; 82550; 83690; 84484; 85025; 93005; 99285; J2405

== ENCOUNTER 2022-12-19 23:59 | Inpatient (IN) | payer OTHER ==
[2022-12-20] MEDS ORDERED: LORazepam 2 MG/ML SYR.(CARPUJECT) ONE (01:17)
[2022-12-20] MEDS ORDERED: levETIRAcetam 500 MG/5 ML VIAL ONE (01:34)
[2022-12-20 01:39] LABS: #Eosinphils 0.1 thou/uL (0.0-0.7); #Monocytes 0.5 thou/uL (0.11-0.59); #Neutrophils 3.6 thou/uL (1.40-6.50); %Basophils 0.7 % (0.0-1.0); %Eosinophils 0.9 % (0.0-10.0); %Lymphocytes 23.6 % (21.0-51.0); %Monocytes 8.9 % (0.0-10.0); %Neutrophils 65.5 % (42.0-75.0); Hemoglobin 15.4 g/dL (14.0-18.0); Mean Corpuscular HGB CONC 34.1 g/dL (32.0-36.0); Mean Corpuscular Hemoglobin 29.2 pg (27.0-31.0); Mean Corpuscular Volume 85.4 fl (78.0-98.0); Mean Platelet Volume 9.1 fL (7.4-10.4); Platelet Count 184 10x3/uL (130-400); RBC Distribution Width 13.2 % (11.5-14.5); Red Blood Cell (RBC) Count 5.28 mill/uL (4.70-6.10); White Blood Cell (WBC) Count 5.5 10x3/uL (4.8-10.8)
[2022-12-20 02:01] LABS: ALT (SGPT) 137 U/L (8-55); AST (SGOT) 91 U/L (5-34); Acetaminophen Less than 10.0 mcg/mL (10.0-30.0); Albumin 4.9 g/dL (3.5-5.0); Alcohol Less than 10 mg/dL (Less than 10); Alkaline Phosphatase 97 U/L (40-110); Anion Gap 25 mmol/L (10-20); BUN (Urea Nitrogen) 11 mg/dL (8.9-20.6); Bilirubin, Total 1.1 mg/dL (0.2-1.2); CK (CPK) 245 U/L (30-200); Calc. Creatinine Clearance 0 mL/min (70-130); Calcium 9.5 mg/dL (7.8-10.44); Carbon Dioxide 19 mmol/L (22-29); Chloride 94 mmol/L (98-107); Estimated GFR 110; Globulin 4.1 g/dL (2.4-3.5); Glucose 71 mg/dL (70-105); Potassium 3.9 mmol/L (3.5-5.1); Salicylate Less than 8.0 mg/dL (15.0-30.0); Sodium 134 mmol/L (136-145)
[2022-12-20 02:28] LABS: Bacteria/HPF None Seen HPF (None Seen); Bilirubin Negative (Negative); Blood, Urine Negative (Negative); Clarity Clear (Clear); Glucose, Urine (Dipstick) Normal (Negative); Ketone, Urine Greater than 150 mg/dL (Negative); Leukocyte Negative Leu/uL (Negative); Nitrite Negative (Negative); Protein, Urine (Dipstick) 30 mg/dL (Neg-Trace); RBC/HPF 0-3 HPF (0-3); Specific Gravity, Urine 1.029 (1.002-1.036); Squamous Epithelial None Seen HPF (0-3); Urobilinogen Normal mg/dL (Less than 2); WBC/HPF 0-3 HPF (0-3); pH, Urine 5.5 (5.0-9.0)
[2022-12-20] MEDS ORDERED: Pantoprazole 40 MG VIAL ONE (02:37)
[2022-12-20] MEDS ORDERED: Ondansetron PF 4 MG/2 ML Vial ONE (02:37)
[2022-12-20] MEDS ORDERED: Ondansetron ODT 4 MG TAB SL PRN (04:00)
[2022-12-20] MEDS ORDERED: Ondansetron PF 4 MG/2 ML Vial IVP PRN ×2 (04:00→04:04)
[2022-12-20] MEDS ORDERED: D5 1/2 NS w/20 mEq KCL 1,000 ML IV SCH (04:00)
[2022-12-20] MEDS ORDERED: Lorazepam 2 MG/ML VIAL SLOW IVP PRN (04:00)
[2022-12-20] MEDS ORDERED: Lorazepam 1 MG TAB PO PRN (04:01)
[2022-12-20] MEDS ORDERED: Ondansetron ODT 4 MG TAB PO PRN ×2 (04:01→04:04)
[2022-12-20] MEDS ORDERED: Lorazepam 2 MG/ML VIAL IM PRN (04:01)
[2022-12-20] MEDS ORDERED: Electrolyte Replacement Protocol 1 EACH FS ONE (04:03)
[2022-12-20] MEDS ORDERED: Senokot S 8.6-50 MG TAB PO PRN (04:04)
[2022-12-20] MEDS ORDERED: Calcium Carbonate 500 MG ChewTAB PO PRN (04:04)
[2022-12-20] MEDS ORDERED: Acetaminophen 325 MG TAB PO PRN (04:04)
[2022-12-20 04:09] LABS: Amphetamine Not Detected (NotDetected); Barbiturates Screen Not Detected (NotDetected); Benzodiazepine Screen Detected (NotDetected); Cocaine Metabolite Screen Not Detected (NotDetected); Methadone Not Detected (NotDetected); Methamphetamine Not Detected (NotDetected); Opiate Screen Not Detected (NotDetected); Oxycodone Screen Not Detected (NotDetected); Phencyclidine (PCP) Not Detected (NotDetected); THC/Cannabinoid Screen Detected (NotDetected); Tricyclic Screen Not Detected (NotDetected)
[2022-12-20] MEDS ORDERED: Electrolyte Replacement Protocol 1 EACH FS SCH (04:15)
[2022-12-20] MEDS ORDERED: Sodium Chloride 0.9% 1,000 ML IV SCH (04:15)
[2022-12-20] MEDS ORDERED: Thiamine HCl 200 MG/2 ML VIAL SLOW IVP SCH (04:15)
[2022-12-20] MEDS ORDERED: Pantoprazole 80 MG in Sodium Chloride 0.9% 100 ML IVPB SCH (04:15)
[2022-12-20] MEDS: Lorazepam 1 MG TAB PO SCH ×4 (04:25→23:18)
[2022-12-20 06:12] LABS: #Basophils 0.1 thou/uL (0.0-0.2); #Eosinphils 0.1 thou/uL (0.0-0.7); #Monocytes 0.5 thou/uL (0.11-0.59); #Neutrophils 3.6 thou/uL (1.40-6.50); %Basophils 1.3 % (0.0-1.0); %Eosinophils 0.9 % (0.0-10.0); %Lymphocytes 22.9 % (21.0-51.0); %Monocytes 8.3 % (0.0-10.0); %Neutrophils 66.2 % (42.0-75.0); Hemoglobin 13.5 g/dL (14.0-18.0); Mean Corpuscular HGB CONC 33.6 g/dL (32.0-36.0); Mean Corpuscular Hemoglobin 29.2 pg (27.0-31.0); Mean Platelet Volume 9.4 fL (7.4-10.4); Platelet Count 151 10x3/uL (130-400); RBC Distribution Width 13.1 % (11.5-14.5); Red Blood Cell (RBC) Count 4.62 mill/uL (4.70-6.10); White Blood Cell (WBC) Count 5.4 10x3/uL (4.8-10.8)
[2022-12-20 06:26] LABS: INR-International Normal Ratio 1.1; PTT 30.9 sec (22.9-36.1); Prothrombin Time 14.4 sec (12.0-14.7)
[2022-12-20 06:27] LABS: Magnesium 1.7 mg/dL (1.6-2.6)
[2022-12-20 07:26] VITALS: BMI 20.5
[2022-12-20] MEDS ORDERED: Magnesium 2 GM/50 ML(in water) 2 GM in Premix Bag 1 BAG IVPB SCH (08:00)
[2022-12-20] MEDS ORDERED: Non-Formulary Item 1 EACH (Vitamin B Complex [Vitamin B Complex] 1 CAP Capsule) PO SCH (09:00)
[2022-12-20] MEDS: levETIRAcetam 500 MG TAB PO SCH ×2 (09:40→19:33)
[2022-12-20] MEDS: Multivitamin w/Zinc Stress 1 TAB PO SCH (09:40)
[2022-12-20] MEDS: Folic Acid 1 MG TAB PO SCH (09:40)
[2022-12-20] MEDS: Gabapentin 300 MG CAP PO SCH (09:41)
[2022-12-20] MEDS: Thiamine 100 MG TAB PO SCH ×2 (09:41→20:36)
[2022-12-20] MEDS: Multivit, Therapeutic 1 TAB PO SCH (09:42)
[2022-12-20] MEDS: Pantoprazole 40 MG VIAL IVP SCH ×2 (09:43→20:36)
[2022-12-20 14:18] LABS: Hemoglobin 13.2 g/dL (14.0-18.0)
[2022-12-20] MEDS ORDERED: levETIRAcetam 500 MG TAB PO SCH (21:00)
[2022-12-20 21:52] LABS: Hemoglobin 13.3 g/dL (14.0-18.0)
[2022-12-21] MEDS ORDERED: Lorazepam 1 MG TAB PO PRN (04:01)
[2022-12-21] MEDS: Lorazepam 1 MG TAB PO SCH ×2 (04:23→10:31)
[2022-12-21 05:52] LABS: Hemoglobin 13.9 g/dL (14.0-18.0)
[2022-12-21 05:53] LABS: #Eosinphils 0.1 thou/uL (0.0-0.7); #Monocytes 0.5 thou/uL (0.11-0.59); #Neutrophils 2.9 thou/uL (1.40-6.50); %Basophils 0.9 % (0.0-1.0); %Eosinophils 2.6 % (0.0-10.0); %Lymphocytes 22.5 % (21.0-51.0); %Monocytes 11.4 % (0.0-10.0); %Neutrophils 62.2 % (42.0-75.0); Mean Corpuscular Hemoglobin 28.8 pg (27.0-31.0); Mean Corpuscular Volume 87.2 fl (78.0-98.0); Mean Platelet Volume 9.5 fL (7.4-10.4); Platelet Count 162 10x3/uL (130-400); RBC Distribution Width 13.1 % (11.5-14.5); Red Blood Cell (RBC) Count 4.86 mill/uL (4.70-6.10); White Blood Cell (WBC) Count 4.6 10x3/uL (4.8-10.8)
[2022-12-21 06:09] LABS: ALT (SGPT) 97 U/L (8-55); AST (SGOT) 71 U/L (5-34); Albumin 4.4 g/dL (3.5-5.0); Alkaline Phosphatase 81 U/L (40-110); Anion Gap 16 mmol/L (10-20); BUN (Urea Nitrogen) 6 mg/dL (8.9-20.6); Bilirubin, Total 1.1 mg/dL (0.2-1.2); CK (CPK) 130 U/L (30-200); Calc. Creatinine Clearance 109 mL/min (70-130); Calcium 8.9 mg/dL (7.8-10.44); Carbon Dioxide 22 mmol/L (22-29); Chloride 102 mmol/L (98-107); Estimated GFR 121; Globulin 3.4 g/dL (2.4-3.5); Glucose 84 mg/dL (70-105); Potassium 4.3 mmol/L (3.5-5.1); Protein, Total 7.8 g/dL (6.0-8.3); Sodium 136 mmol/L (136-145)
[2022-12-21] MEDS: Pantoprazole 40 MG VIAL IVP SCH (09:05)
[2022-12-21] MEDS: Gabapentin 300 MG CAP PO SCH (09:05)
[2022-12-21] MEDS: levETIRAcetam 500 MG TAB PO SCH (09:06)
[2022-12-21] MEDS: Folic Acid 1 MG TAB PO SCH (09:07)
[2022-12-21] MEDS: Thiamine 100 MG TAB PO SCH (09:07)
[2022-12-21] MEDS: Multivit, Therapeutic 1 TAB PO SCH (09:08)
[2022-12-21] MEDS: Multivitamin w/Zinc Stress 1 TAB PO SCH (09:08)
[2022-12-21 13:25] VITALS: TEMP 98
[2022-12-22] MEDS ORDERED: Lorazepam 1 MG TAB PO PRN (04:01)
[2022-12-22] MEDS ORDERED: Lorazepam 0.5 MG TAB PO SCH (04:15)
[2022-12-23] MEDS ORDERED: Lorazepam 0.5 MG TAB PO PRN (04:01)
[2022-12-23] MEDS ORDERED: Thiamine 100 MG TAB PO SCH (09:00)
== END 2022-12-21 15:52 | disposition home or self-care (01) | DRG 897 ==
LOC: ERS 23:59 → IMCU/EMU 12-20 02:49
PROVIDERS: ADMIT Internal Medicine; ATTEND Internal Medicine
DX: F10.231 Alcohol dependence with withdrawal delirium (principal); I10 Essential (primary) hypertension; F41.9 Anxiety disorder, unspecified; F31.9 Bipolar disorder, unspecified; F43.10 Post-traumatic stress disorder, unspecified; Y90.0 Blood alcohol level of less than 20 mg/100 ml; G40.909 Epilepsy, unspecified, not intractable, without status epilepticus; Z87.891 Personal history of nicotine dependence
CPT/HCPCS: 36415; 80053; 80306; 80307; 81003; 81015; 82248; 82550; 83605; 83735; 84100; 85025; 85610; 85730; 86850; 86900; 86901; 93005; 94760; 96365; 96372; 96375; C9113; J1953; J2060; J2405; J3411; J3475; J3480

== ENCOUNTER 2023-04-21 12:01 | Emergency (ER) | payer OTHER ==
[2023-04-21] MEDS ORDERED: Diazepam 10 MG/2 ML SYRINGE ONE ×4 (12:37→16:40)
[2023-04-21 12:39] LABS: #Basophils 0.1 thou/uL (0.0-0.2); #Eosinphils 0.1 thou/uL (0.0-0.7); #Monocytes 0.6 thou/uL (0.11-0.59); #Neutrophils 5.8 thou/uL (1.40-6.50); %Basophils 1.1 % (0.0-1.0); %Eosinophils 0.9 % (0.0-10.0); %Monocytes 8.4 % (0.0-10.0); %Neutrophils 76.2 % (42.0-75.0); Hematocrit 49.1 % (42.0-52.0); Hemoglobin 17.2 g/dL (14.0-18.0); Mean Corpuscular Hemoglobin 28.7 pg (27.0-31.0); Mean Platelet Volume 9.1 fL (7.4-10.4); Platelet Count 168 10x3/uL (130-400); RBC Distribution Width 12.5 % (11.5-14.5); Red Blood Cell (RBC) Count 5.99 mill/uL (4.70-6.10); White Blood Cell (WBC) Count 7.6 10x3/uL (4.8-10.8)
[2023-04-21 13:02] LABS: ALT (SGPT) 115 U/L (8-55); AST (SGOT) 152 U/L (5-34); Albumin 4.5 g/dL (3.5-5.0); Alkaline Phosphatase 128 U/L (40-110); Anion Gap 15 mmol/L (10-20); BUN (Urea Nitrogen) 5 mg/dL (8.9-20.6); Bilirubin, Total 1.9 mg/dL (0.2-1.2); Calc. Creatinine Clearance 0 mL/min (70-130); Calcium 9.5 mg/dL (7.8-10.44); Carbon Dioxide 28 mmol/L (22-29); Chloride 101 mmol/L (98-107); Estimated GFR 100; Globulin 4.2 g/dL (2.4-3.5); Glucose 118 mg/dL (70-105); Magnesium 1.3 mg/dL (1.6-2.6); Potassium 3.7 mmol/L (3.5-5.1); Protein, Total 8.7 g/dL (6.0-8.3); Sodium 140 mmol/L (136-145)
[2023-04-21 15:52] LABS: Lactic Acid 2.3 mmol/L (0.5-2.2)
== END 2023-04-21 20:50 | disposition short-term general hospital (02) ==
LOC: ERS 12:01
DX: F10.239 Alcohol dependence with withdrawal, unspecified (principal); I10 Essential (primary) hypertension; Z87.891 Personal history of nicotine dependence
CPT/HCPCS: 36415; 80053; 80177; 83605; 83735; 85025; 93005; 96361; 96374; 96376; J3360

== ENCOUNTER 2023-06-18 11:49 | Inpatient (IN) | payer OTHER ==
[2023-06-18 12:34] LABS: #Basophils 0.1 thou/uL (0.0-0.2); #Eosinphils 0.2 thou/uL (0.0-0.7); #Monocytes 0.4 thou/uL (0.11-0.59); #Neutrophils 3.3 thou/uL (1.40-6.50); %Basophils 1.4 % (0.0-1.0); %Eosinophils 3.1 % (0.0-10.0); %Lymphocytes 19.7 % (21.0-51.0); %Monocytes 8.4 % (0.0-10.0); %Neutrophils 67.2 % (42.0-75.0); Hematocrit 46.7 % (42.0-52.0); Hemoglobin 16.3 g/dL (14.0-18.0); Mean Corpuscular HGB CONC 34.9 g/dL (32.0-36.0); Mean Corpuscular Hemoglobin 29.8 pg (27.0-31.0); Mean Corpuscular Volume 85.4 fl (78.0-98.0); Mean Platelet Volume 9.2 fL (7.4-10.4); Platelet Count 173 10x3/uL (130-400); RBC Distribution Width 13.2 % (11.5-14.5); Red Blood Cell (RBC) Count 5.47 mill/uL (4.70-6.10); White Blood Cell (WBC) Count 4.9 10x3/uL (4.8-10.8)
[2023-06-18] MEDS ORDERED: Ondansetron PF 4 MG/2 ML Vial ONE (12:44)
[2023-06-18] MEDS ORDERED: levETIRAcetam 500 MG/5 ML VIAL ONE (12:44)
[2023-06-18 12:50] LABS: Prothrombin Time 13.7 sec (12.0-14.7)
[2023-06-18 12:51] LABS: PTT 27.2 sec (22.9-36.1)
[2023-06-18 12:53] LABS: D-Dimer Test 0.31 *mcg/mL (0.27-0.43)
[2023-06-18] MEDS ORDERED: LORazepam 2 MG/ML SYR.(CARPUJECT) ONE ×2 (12:56→15:26)
[2023-06-18 12:59] LABS: ALT (SGPT) 204 U/L (8-55); AST (SGOT) 231 U/L (5-34); Albumin 4.3 g/dL (3.5-5.0); Alkaline Phosphatase 94 U/L (40-110); Anion Gap 19 mmol/L (10-20); BUN (Urea Nitrogen) 4 mg/dL (8.9-20.6); Calc. Creatinine Clearance 0 mL/min (70-130); Calcium 8.6 mg/dL (7.8-10.44); Carbon Dioxide 22 mmol/L (22-29); Chloride 103 mmol/L (98-107); Estimated GFR 125; Globulin 3.4 g/dL (2.4-3.5); Glucose 103 mg/dL (70-105); Potassium 3.4 mmol/L (3.5-5.1); Protein, Total 7.7 g/dL (6.0-8.3); Sodium 141 mmol/L (136-145)
[2023-06-18] MEDS ORDERED: levETIRAcetam 500 MG/5 ML VIAL SLOW IVP SCH (13:00)
[2023-06-18] MEDS ORDERED: Lorazepam 2 MG/ML VIAL SLOW IVP SCH (13:00)
[2023-06-18] MEDS ORDERED: Magnesium 2 GM/50 ML(in water) 2 GM in Premix 1 BAG IVPB SCH (13:00)
[2023-06-18] MEDS ORDERED: Thiamine HCl 200 MG/2 ML VIAL SLOW IVP SCH (13:00)
[2023-06-18 13:01] LABS: Acetaminophen Less than 10 mcg/mL (10.0-30.0); Alcohol 103.6 mg/dL (Less than 10); Lipase 66 U/L (8-78); Salicylate Less than 8.0 mg/dL (15.0-30.0); Troponin I Less than 0.010 ng/mL (< 0.028)
[2023-06-18] MEDS ORDERED: Thiamine HCl 200 MG/2 ML VIAL ONE (14:24)
[2023-06-18] MEDS ORDERED: Magnesium 2 GM/50 ML BAG (IN WATER) ONE (14:24)
[2023-06-18 15:02] LABS: Amphetamine Not Detected (NotDetected); Barbiturates Screen Not Detected (NotDetected); Benzodiazepine Screen Detected (NotDetected); Cocaine Metabolite Screen Not Detected (NotDetected); Methadone Not Detected (NotDetected); Methamphetamine Not Detected (NotDetected); Opiate Screen Not Detected (NotDetected); Oxycodone Screen Not Detected (NotDetected); Phencyclidine (PCP) Not Detected (NotDetected); THC/Cannabinoid Screen Detected (NotDetected); Tricyclic Screen Not Detected (NotDetected)
[2023-06-18] MEDS ORDERED: chlordiazePOXIDE HCl 5 MG CAP PO SCH (16:00)
[2023-06-18 16:02] LABS: Troponin I Less than 0.010 ng/mL (< 0.028)
[2023-06-18] MEDS ORDERED: Lorazepam 1 MG TAB PO PRN (17:13)
[2023-06-18] MEDS ORDERED: Ondansetron ODT 4 MG TAB PO PRN (17:13)
[2023-06-18] MEDS ORDERED: Lorazepam 2 MG/ML VIAL IM PRN (17:13)
[2023-06-18] MEDS ORDERED: Electrolyte Replacement Protocol 1 EACH FS SCH (17:15)
[2023-06-18] MEDS ORDERED: Sodium Chloride 0.9% 1,000 ML IV SCH ×2 (17:30→19:56)
[2023-06-18] MEDS ORDERED: Dexmedetomidine 400 MCG, Admixture Fee 1 EACH in Sodium Chloride 0.9% 96 ML IVPB SCH (17:45)
[2023-06-18] MEDS ORDERED: Potassium Chloride 20 MEQ in Premix 1 BAG IVPB SCH ×2 (18:15→22:15)
[2023-06-18] MEDS ORDERED: Dexmedetomidine In 0.9 % NaCl 100 ML IVPB SCH (18:30)
[2023-06-18 20:37] LABS: Bilirubin Negative (Negative); Blood, Urine Trace (Negative); Clarity Clear (Clear); Glucose, Urine (Dipstick) Normal (Negative); Ketone, Urine Negative (Negative); Leukocyte Negative Leu/uL (Negative); Nitrite Negative (Negative); Protein, Urine (Dipstick) 20 mg/dL (Neg-Trace); Specific Gravity, Urine 1.018 (1.002-1.036); Urobilinogen Normal mg/dL (Less than 2)
[2023-06-18] MEDS: Lorazepam 1 MG TAB PO SCH ×2 (20:40→23:49)
[2023-06-18 20:46] LABS: Bacteria/HPF Rare-Few HPF (None Seen); CAUTI Indications for Culture Dysuria,urgency,freq; RBC/HPF 0-3 HPF (0-3); Squamous Epithelial 0-3 HPF (0-3); WBC/HPF 0-3 HPF (0-3)
[2023-06-18 20:47] LABS: Urine Culture Reflex No No
[2023-06-18] MEDS: levETIRAcetam 500 MG TAB PO SCH (21:19)
[2023-06-18] MEDS: Pantoprazole 40 MG VIAL IVP SCH (21:20)
[2023-06-19] MEDS ORDERED: Potassium Chloride 20 MEQ TAB PO SCH (00:30)
[2023-06-19 04:12] LABS: #Eosinphils 0.2 thou/uL (0.0-0.7); #Monocytes 0.3 thou/uL (0.11-0.59); #Neutrophils 2.1 thou/uL (1.40-6.50); %Eosinophils 4.3 % (0.0-10.0); %Lymphocytes 32.7 % (21.0-51.0); %Monocytes 7.6 % (0.0-10.0); %Neutrophils 53.9 % (42.0-75.0); Hematocrit 40.1 % (42.0-52.0); Hemoglobin 13.8 g/dL (14.0-18.0); Mean Corpuscular HGB CONC 34.4 g/dL (32.0-36.0); Mean Corpuscular Hemoglobin 29.9 pg (27.0-31.0); Mean Corpuscular Volume 86.8 fl (78.0-98.0); Mean Platelet Volume 9.7 fL (7.4-10.4); Platelet Count 130 10x3/uL (130-400); RBC Distribution Width 13.1 % (11.5-14.5); Red Blood Cell (RBC) Count 4.62 mill/uL (4.70-6.10)
[2023-06-19] MEDS: Lorazepam 1 MG TAB PO SCH ×4 (04:18→22:37)
[2023-06-19 04:43] LABS: ALT (SGPT) 164 U/L (8-55); AST (SGOT) 204 U/L (5-34); Albumin 3.7 g/dL (3.5-5.0); Alkaline Phosphatase 81 U/L (40-110); Anion Gap 11 mmol/L (10-20); BUN (Urea Nitrogen) 8 mg/dL (8.9-20.6); Bilirubin, Total 1.5 mg/dL (0.2-1.2); Calc. Creatinine Clearance 202 mL/min (70-130); Calcium 8.4 mg/dL (7.8-10.44); Carbon Dioxide 22 mmol/L (22-29); Chloride 106 mmol/L (98-107); Estimated GFR 128; Globulin 2.6 g/dL (2.4-3.5); Glucose 87 mg/dL (70-105); Magnesium 1.8 mg/dL (1.6-2.6); Potassium 3.8 mmol/L (3.5-5.1); Protein, Total 6.3 g/dL (6.0-8.3); Sodium 135 mmol/L (136-145)
[2023-06-19] MEDS: Pantoprazole 40 MG VIAL IVP SCH ×2 (06:47→17:56)
[2023-06-19] MEDS: Dexmedetomidine 400 MCG, Admixture Fee 1 EACH in Sodium Chloride 0.9% 96 ML IVPB SCH (07:58)
[2023-06-19] MEDS ORDERED: Magnesium 2 GM/50 ML(in water) 2 GM in Premix 1 BAG IVPB SCH (08:00)
[2023-06-19] MEDS: Multivit, Therapeutic 1 TAB PO SCH (09:17)
[2023-06-19] MEDS: Folic Acid 1 MG TAB PO SCH (09:17)
[2023-06-19] MEDS: levETIRAcetam 500 MG TAB PO SCH ×2 (09:17→20:22)
[2023-06-19] MEDS: Thiamine HCl 200 MG/2 ML VIAL SLOW IVP SCH (09:25)
[2023-06-19] MEDS ORDERED: Lorazepam 1 MG TAB PO PRN (17:14)
[2023-06-19] MEDS ORDERED: traZODone HCl 50 MG TAB PO SCH ×2 (19:45→23:45)
[2023-06-20 03:59] LABS: #Eosinphils 0.3 thou/uL (0.0-0.7); #Monocytes 0.2 thou/uL (0.11-0.59); #Neutrophils 2.7 thou/uL (1.40-6.50); %Basophils 0.7 % (0.0-1.0); %Eosinophils 5.9 % (0.0-10.0); %Lymphocytes 27.1 % (21.0-51.0); %Neutrophils 60.8 % (42.0-75.0); Hematocrit 42.2 % (42.0-52.0); Hemoglobin 14.9 g/dL (14.0-18.0); Mean Corpuscular HGB CONC 35.3 g/dL (32.0-36.0); Mean Corpuscular Hemoglobin 30.4 pg (27.0-31.0); Mean Corpuscular Volume 86.1 fl (78.0-98.0); Mean Platelet Volume 10.1 fL (7.4-10.4); Platelet Count 125 10x3/uL (130-400); RBC Distribution Width 12.8 % (11.5-14.5); White Blood Cell (WBC) Count 4.4 10x3/uL (4.8-10.8)
[2023-06-20] MEDS: Dexmedetomidine 400 MCG, Admixture Fee 1 EACH in Sodium Chloride 0.9% 96 ML IVPB SCH (04:25)
[2023-06-20 04:29] LABS: ALT (SGPT) 299 U/L (8-55); AST (SGOT) 547 U/L (5-34); Alkaline Phosphatase 94 U/L (40-110); Anion Gap 12 mmol/L (10-20); BUN (Urea Nitrogen) 7 mg/dL (8.9-20.6); Bilirubin, Total 1.5 mg/dL (0.2-1.2); Calc. Creatinine Clearance 196 mL/min (70-130); Calcium 8.9 mg/dL (7.8-10.44); Carbon Dioxide 23 mmol/L (22-29); Chloride 104 mmol/L (98-107); Estimated GFR 127; Globulin 3.1 g/dL (2.4-3.5); Glucose 77 mg/dL (70-105); Magnesium 2.1 mg/dL (1.6-2.6); Potassium 3.8 mmol/L (3.5-5.1); Protein, Total 7.1 g/dL (6.0-8.3); Sodium 135 mmol/L (136-145)
[2023-06-20] MEDS: Lorazepam 1 MG TAB PO SCH ×2 (06:03→11:23)
[2023-06-20] MEDS: Pantoprazole 40 MG VIAL IVP SCH ×2 (06:03→17:20)
[2023-06-20] MEDS: Thiamine HCl 200 MG/2 ML VIAL SLOW IVP SCH (09:16)
[2023-06-20] MEDS: Multivit, Therapeutic 1 TAB PO SCH (09:17)
[2023-06-20] MEDS: levETIRAcetam 500 MG TAB PO SCH ×2 (09:17→20:56)
[2023-06-20] MEDS: Folic Acid 1 MG TAB PO SCH (09:18)
[2023-06-20] MEDS ORDERED: Lorazepam 1 MG TAB PO PRN (17:14)
[2023-06-20] MEDS: Lorazepam 0.5 MG TAB PO SCH ×2 (17:19→23:08)
[2023-06-20] MEDS ORDERED: traZODone HCl 50 MG TAB PO PRN (22:55)
[2023-06-21] MEDS ORDERED: Ketorolac Tromethamine 30 MG/ML VIAL IVP SCH (01:00)
[2023-06-21] MEDS: Pantoprazole 40 MG VIAL IVP SCH (05:40)
[2023-06-21] MEDS: Lorazepam 0.5 MG TAB PO SCH ×2 (05:40→12:08)
[2023-06-21 06:15] LABS: #Eosinphils 0.3 thou/uL (0.0-0.7); #Monocytes 0.4 thou/uL (0.11-0.59); #Neutrophils 3.5 thou/uL (1.40-6.50); %Basophils 0.5 % (0.0-1.0); %Eosinophils 4.8 % (0.0-10.0); %Lymphocytes 29.7 % (21.0-51.0); %Monocytes 6.6 % (0.0-10.0); %Neutrophils 57.9 % (42.0-75.0); Hemoglobin 15.5 g/dL (14.0-18.0); Mean Corpuscular HGB CONC 34.4 g/dL (32.0-36.0); Mean Corpuscular Hemoglobin 29.6 pg (27.0-31.0); Mean Platelet Volume 9.9 fL (7.4-10.4); Platelet Count 130 10x3/uL (130-400); RBC Distribution Width 12.8 % (11.5-14.5); Red Blood Cell (RBC) Count 5.23 mill/uL (4.70-6.10)
[2023-06-21 06:29] LABS: INR-International Normal Ratio 1.1; PTT 29.4 sec (22.9-36.1); Prothrombin Time 14.3 sec (12.0-14.7)
[2023-06-21 06:45] LABS: ALT (SGPT) 328 U/L (8-55); AST (SGOT) 505 U/L (5-34); Albumin 4.3 g/dL (3.5-5.0); Alkaline Phosphatase 100 U/L (40-110); Anion Gap 14 mmol/L (10-20); BUN (Urea Nitrogen) 9 mg/dL (8.9-20.6); Bilirubin, Total 1.3 mg/dL (0.2-1.2); Calc. Creatinine Clearance 164 mL/min (70-130); Carbon Dioxide 23 mmol/L (22-29); Chloride 101 mmol/L (98-107); Estimated GFR 121; Globulin 3.2 g/dL (2.4-3.5); Glucose 79 mg/dL (70-105); Magnesium 1.9 mg/dL (1.6-2.6); Potassium 3.5 mmol/L (3.5-5.1); Protein, Total 7.5 g/dL (6.0-8.3); Sodium 134 mmol/L (136-145)
[2023-06-21 06:51] VITALS: BMI 29.9
[2023-06-21 07:50] VITALS: TEMP 97.5
[2023-06-21] MEDS ORDERED: Magnesium 2 GM/50 ML(in water) 2 GM in Premix 1 BAG IVPB SCH (08:00)
[2023-06-21] MEDS ORDERED: Potassium Chloride 20 MEQ TAB PO SCH (08:00)
[2023-06-21] MEDS ORDERED: FLU VACC QS2023-24(6MOS UP)/PF 60 MCG/0.5 ML SYRINGE IM ONE (09:00)
[2023-06-21] MEDS ORDERED: Thiamine 100 MG TAB PO SCH (09:00)
[2023-06-21] MEDS: levETIRAcetam 500 MG TAB PO SCH (09:30)
[2023-06-21] MEDS: Multivit, Therapeutic 1 TAB PO SCH (09:30)
[2023-06-21] MEDS: Folic Acid 1 MG TAB PO SCH (09:30)
[2023-06-21 14:38] LABS: Potassium 3.8 mmol/L (3.5-5.1)
[2023-06-21] MEDS ORDERED: Lorazepam 0.5 MG TAB PO PRN (17:14)
== END 2023-06-21 14:25 | disposition home or self-care (01) | DRG 896 ==
LOC: ERS 11:49 → CCU 19:51 → IMCU/EMU 06-20 15:58
PROVIDERS: ADMIT Internal Medicine; ATTEND Family Medicine
DX: F10.932 Alcohol use, unspecified with withdrawal with perceptual disturbance (principal); K22.6 Gastro-esophageal laceration-hemorrhage syndrome; I10 Essential (primary) hypertension; G40.909 Epilepsy, unspecified, not intractable, without status epilepticus; F31.9 Bipolar disorder, unspecified; F41.9 Anxiety disorder, unspecified; F43.10 Post-traumatic stress disorder, unspecified; F17.210 Nicotine dependence, cigarettes, uncomplicated; R74.01 Elevation of levels of liver transaminase levels; F12.10 Cannabis abuse, uncomplicated; R07.89 Other chest pain; Z88.8 Allergy status to other drugs, medicaments and biological substances; Z91.018 Allergy to other foods; Z79.899 Other long term (current) drug therapy; Z98.890 Other specified postprocedural states
CPT/HCPCS: 36415; 71045; 80053; 80306; 80307; 81001; 83690; 83735; 84484; 85025; 85379; 85610; 85730; 86850; 86900; 86901; 93005; 96361; 96365; 96366; 96375; 96376; C9113; J1885; J1953; J2060; J2405; J3411; J3475; J3480; J3490; J7050

== ENCOUNTER 2023-06-26 18:18 | Inpatient (IN) | payer OTHER ==
[2023-06-26] MEDS ORDERED: Diazepam 10 MG/2 ML SYRINGE ONE ×2 (19:18→20:24)
[2023-06-26] MEDS ORDERED: Ondansetron PF 4 MG/2 ML Vial ONE (19:18)
[2023-06-26 19:24] LABS: #Eosinphils 0.1 thou/uL (0.0-0.7); #Monocytes 0.5 thou/uL (0.11-0.59); %Basophils 0.8 % (0.0-1.0); %Eosinophils 2.5 % (0.0-10.0); %Lymphocytes 32.8 % (21.0-51.0); %Neutrophils 50.4 % (42.0-75.0); Hemoglobin 16.4 g/dL (14.0-18.0); Mean Corpuscular HGB CONC 34.9 g/dL (32.0-36.0); Mean Corpuscular Hemoglobin 30.1 pg (27.0-31.0); Mean Corpuscular Volume 86.4 fl (78.0-98.0); Mean Platelet Volume 9.1 fL (7.4-10.4); Platelet Count 173 10x3/uL (130-400); RBC Distribution Width 13.2 % (11.5-14.5); Red Blood Cell (RBC) Count 5.44 mill/uL (4.70-6.10)
[2023-06-26 19:48] LABS: ALT (SGPT) 279 U/L (8-55); AST (SGOT) 198 U/L (5-34); Albumin 4.3 g/dL (3.5-5.0); Alcohol 158.6 mg/dL (Less than 10); Alkaline Phosphatase 105 U/L (40-110); Anion Gap 16 mmol/L (10-20); BUN (Urea Nitrogen) 6 mg/dL (8.9-20.6); Bilirubin, Total 0.8 mg/dL (0.2-1.2); Calc. Creatinine Clearance 0 mL/min (70-130); Calcium 9.2 mg/dL (7.8-10.44); Carbon Dioxide 28 mmol/L (22-29); Chloride 104 mmol/L (98-107); Estimated GFR 122; Globulin 3.8 g/dL (2.4-3.5); Glucose 124 mg/dL (70-105); Lipase 71 U/L (8-78); Potassium 3.3 mmol/L (3.5-5.1); Protein, Total 8.1 g/dL (6.0-8.3); Sodium 145 mmol/L (136-145)
[2023-06-26] MEDS ORDERED: levETIRAcetam 500 MG TAB ONE (19:54)
[2023-06-26] MEDS ORDERED: LORazepam 2 MG/ML SYR.(CARPUJECT) ONE (20:54)
[2023-06-26] MEDS ORDERED: Lorazepam 1 MG TAB PO PRN (21:51)
[2023-06-26] MEDS ORDERED: Ondansetron ODT 4 MG TAB PO PRN ×2 (21:51→21:52)
[2023-06-26] MEDS ORDERED: Lorazepam 2 MG/ML VIAL IM PRN (21:51)
[2023-06-26] MEDS ORDERED: Acetaminophen 325 MG TAB PO PRN (21:52)
[2023-06-26] MEDS ORDERED: Electrolyte Replacement Protocol 1 EACH FS SCH (22:00)
[2023-06-26] MEDS ORDERED: Dexmedetomidine In 0.9 % NaCl 100 ML IVPB SCH (22:00)
[2023-06-26 22:59] LABS: Magnesium 1.6 mg/dL (1.6-2.6); Phosphorus 3.4 mg/dL (2.3-4.7)
[2023-06-26] MEDS: Thiamine HCl 200 MG/2 ML VIAL SLOW IVP SCH (23:05)
[2023-06-26] MEDS: Lorazepam 1 MG TAB PO SCH (23:08)
[2023-06-26 23:19] VITALS: BMI 30.3
[2023-06-27] MEDS: Lorazepam 1 MG TAB PO SCH ×4 (03:39→22:14)
[2023-06-27 04:32] LABS: #Eosinphils 0.1 thou/uL (0.0-0.7); #Monocytes 0.5 thou/uL (0.11-0.59); %Eosinophils 1.7 % (0.0-10.0); %Lymphocytes 35.1 % (21.0-51.0); %Monocytes 12.9 % (0.0-10.0); %Neutrophils 49.1 % (42.0-75.0); Hematocrit 41.2 % (42.0-52.0); Hemoglobin 14.1 g/dL (14.0-18.0); Mean Corpuscular HGB CONC 34.2 g/dL (32.0-36.0); Mean Corpuscular Hemoglobin 30.2 pg (27.0-31.0); Mean Corpuscular Volume 88.2 fl (78.0-98.0); Mean Platelet Volume 9.5 fL (7.4-10.4); Platelet Count 144 10x3/uL (130-400); RBC Distribution Width 13.2 % (11.5-14.5); Red Blood Cell (RBC) Count 4.67 mill/uL (4.70-6.10)
[2023-06-27 05:19] LABS: Troponin I Less than 0.010 ng/mL (< 0.028)
[2023-06-27] MEDS ORDERED: Magnesium 2 GM/50 ML(in water) 2 GM in Premix 1 BAG IVPB SCH (07:15)
[2023-06-27] MEDS ORDERED: Potassium Chloride 20 MEQ TAB PO SCH (07:15)
[2023-06-27 07:33] LABS: ALT (SGPT) 211 U/L (8-55); AST (SGOT) 148 U/L (5-34); Albumin 3.7 g/dL (3.5-5.0); Alkaline Phosphatase 85 U/L (40-110); Anion Gap 21 mmol/L (10-20); BUN (Urea Nitrogen) 8 mg/dL (8.9-20.6); Bilirubin, Total 1.2 mg/dL (0.2-1.2); Calc. Creatinine Clearance 184 mL/min (70-130); Calcium 8.3 mg/dL (7.8-10.44); Carbon Dioxide 20 mmol/L (22-29); Chloride 104 mmol/L (98-107); Estimated GFR 125; Globulin 3.3 g/dL (2.4-3.5); Glucose 91 mg/dL (70-105); Potassium 3.5 mmol/L (3.5-5.1); Sodium 141 mmol/L (136-145)
[2023-06-27] MEDS ORDERED: Non-Formulary Item 1 EACH (Folic Acid [Folic Acid] 0.4 MG Tablet) PO SCH (09:00)
[2023-06-27] MEDS: busPIRone HCl 10 MG TAB PO SCH (09:10)
[2023-06-27] MEDS: Amlodipine 5 MG TAB PO SCH (09:10)
[2023-06-27] MEDS: Folic Acid 1 MG TAB PO SCH (09:11)
[2023-06-27] MEDS: levETIRAcetam 500 MG TAB PO SCH ×2 (09:11→20:50)
[2023-06-27] MEDS: Multivit, Therapeutic 1 TAB PO SCH (09:11)
[2023-06-27] MEDS: Gabapentin 300 MG CAP PO SCH (09:11)
[2023-06-27] MEDS: Thiamine 100 MG TAB PO SCH (09:12)
[2023-06-27] MEDS: Multivitamin w/Zinc Stress 1 TAB PO SCH (09:55)
[2023-06-27] MEDS: Sodium Chloride 0.45% 1,000 ML IV SCH ×2 (09:56→23:02)
[2023-06-27 12:20] LABS: Potassium 3.6 mmol/L (3.5-5.1)
[2023-06-27] MEDS ORDERED: Lorazepam 1 MG TAB PO PRN (21:51)
[2023-06-27] MEDS: Thiamine HCl 200 MG/2 ML VIAL SLOW IVP SCH (22:14)
[2023-06-28] MEDS: Lorazepam 1 MG TAB PO SCH (05:10)
[2023-06-28 06:34] LABS: Magnesium 1.7 mg/dL (1.6-2.6)
[2023-06-28] MEDS ORDERED: cloNIDine 0.1 MG TAB PO PRN (07:27)
[2023-06-28] MEDS ORDERED: Magnesium 2 GM/50 ML(in water) 2 GM in Premix 1 BAG IVPB SCH (08:00)
[2023-06-28] MEDS: Amlodipine 5 MG TAB PO SCH (08:07)
[2023-06-28] MEDS: Folic Acid 1 MG TAB PO SCH (08:07)
[2023-06-28] MEDS: levETIRAcetam 500 MG TAB PO SCH (08:07)
[2023-06-28] MEDS: Multivitamin w/Zinc Stress 1 TAB PO SCH (08:07)
[2023-06-28] MEDS: busPIRone HCl 10 MG TAB PO SCH (08:08)
[2023-06-28] MEDS: Thiamine 100 MG TAB PO SCH (08:08)
[2023-06-28] MEDS: Gabapentin 300 MG CAP PO SCH (08:08)
[2023-06-28] MEDS: Multivit, Therapeutic 1 TAB PO SCH (08:08)
[2023-06-28 10:24] VITALS: TEMP 98.4
[2023-06-28] MEDS ORDERED: Lorazepam 1 MG TAB PO PRN (21:51)
[2023-06-28] MEDS ORDERED: Lorazepam 0.5 MG TAB PO SCH (22:00)
[2023-06-29] MEDS ORDERED: Lorazepam 0.5 MG TAB PO PRN (21:51)
[2023-06-29] MEDS ORDERED: Thiamine 100 MG TAB PO SCH (22:00)
== END 2023-06-28 11:21 | disposition home or self-care (01) | DRG 897 ==
LOC: ERS 18:18 → IMCU/EMU 22:08
PROVIDERS: ADMIT Student in an Organized Health Care Education/Training Program; ATTEND Internal Medicine
DX: F10.232 Alcohol dependence with withdrawal with perceptual disturbance (principal); I10 Essential (primary) hypertension; G40.909 Epilepsy, unspecified, not intractable, without status epilepticus; F31.9 Bipolar disorder, unspecified; F43.10 Post-traumatic stress disorder, unspecified; F17.210 Nicotine dependence, cigarettes, uncomplicated; F12.929 Cannabis use, unspecified with intoxication, unspecified; K70.10 Alcoholic hepatitis without ascites; Z91.018 Allergy to other foods; Z88.8 Allergy status to other drugs, medicaments and biological substances; Z79.899 Other long term (current) drug therapy
CPT/HCPCS: 36415; 71045; 80053; 80307; 83690; 83735; 84100; 84484; 85025; 93005; 96361; 96365; 96375; 96376; J2060; J2405; J3360; J3411; J3475; J3490; Q0162

== ENCOUNTER 2023-08-04 10:09 | Emergency (ER) | payer OTHER ==
[2023-08-04] MEDS ORDERED: LORazepam 2 MG/ML SYR.(CARPUJECT) ONE ×5 (10:21→18:20)
[2023-08-04] MEDS ORDERED: Pantoprazole 40 MG VIAL ONE (10:46)
[2023-08-04] MEDS ORDERED: Thiamine HCl 200 MG/2 ML VIAL ONE (10:46)
[2023-08-04] MEDS ORDERED: Folic Acid 1 MG TAB ONE (10:46)
[2023-08-04 10:49] LABS: #Basophils 0.1 thou/uL (0.0-0.2); #Monocytes 0.5 thou/uL (0.11-0.59); #Neutrophils 3.5 thou/uL (1.40-6.50); %Basophils 1.2 % (0.0-1.0); %Eosinophils 0.6 % (0.0-10.0); %Lymphocytes 19.4 % (21.0-51.0); %Monocytes 10.1 % (0.0-10.0); %Neutrophils 68.3 % (42.0-75.0); Hemoglobin 15.4 g/dL (14.0-18.0); Mean Corpuscular Hemoglobin 30.7 pg (27.0-31.0); Mean Corpuscular Volume 87.6 fl (78.0-98.0); Mean Platelet Volume 8.9 fL (7.4-10.4); Platelet Count 203 10x3/uL (130-400); RBC Distribution Width 13.2 % (11.5-14.5); Red Blood Cell (RBC) Count 5.02 mill/uL (4.70-6.10); White Blood Cell (WBC) Count 5.1 10x3/uL (4.8-10.8)
[2023-08-04 11:17] LABS: ALT (SGPT) 194 U/L (8-55); AST (SGOT) 159 U/L (5-34); Albumin 3.7 g/dL (3.5-5.0); Alkaline Phosphatase 115 U/L (40-110); Anion Gap 19 mmol/L (10-20); BUN (Urea Nitrogen) 5 mg/dL (8.9-20.6); Bilirubin, Total 1.1 mg/dL (0.2-1.2); CK (CPK) 204 U/L (30-200); Calc. Creatinine Clearance 0 mL/min (70-130); Calcium 7.8 mg/dL (7.8-10.44); Carbon Dioxide 24 mmol/L (22-29); Chloride 102 mmol/L (98-107); Estimated GFR 123; Globulin 3.7 g/dL (2.4-3.5); Glucose 115 mg/dL (70-105); Potassium 3.3 mmol/L (3.5-5.1); Protein, Total 7.4 g/dL (6.0-8.3); Sodium 142 mmol/L (136-145)
[2023-08-04 11:18] LABS: Acetaminophen Less than 10 mcg/mL (10.0-30.0); Alcohol 79.8 mg/dL (Less than 10); Lipase 77 U/L (8-78); Magnesium 1.3 mg/dL (1.6-2.6); Salicylate Less than 8.0 mg/dL (15.0-30.0)
[2023-08-04 11:20] LABS: Troponin I 0.014 ng/mL (< 0.028)
[2023-08-04 11:49] LABS: INR-International Normal Ratio 1.1; Prothrombin Time 14.7 sec (12.0-14.7)
[2023-08-04 11:51] LABS: PTT 28.3 sec (22.9-36.1)
[2023-08-04] MEDS ORDERED: Magnesium 2 GM/50 ML BAG (IN WATER) ONE (12:30)
[2023-08-04] MEDS ORDERED: Potassium Chloride 20 MEQ (100 mL) BAG ONE (12:31)
[2023-08-04 13:53] LABS: Lactic Acid 2.6 mmol/L (0.5-2.2)
[2023-08-04 15:05] LABS: Bacteria/HPF None Seen HPF (None Seen); Bilirubin Negative (Negative); Blood, Urine Negative (Negative); CAUTI Indications for Culture Alt mental st,lethar; Clarity Clear (Clear); Glucose, Urine (Dipstick) Normal (Negative); Ketone, Urine Negative (Negative); Leukocyte Negative Leu/uL (Negative); Nitrite Negative (Negative); Protein, Urine (Dipstick) 20 mg/dL (Neg-Trace); RBC/HPF None Seen HPF (0-3); Specific Gravity, Urine 1.018 (1.002-1.036); Squamous Epithelial 0-3 HPF (0-3); WBC/HPF 0-3 HPF (0-3)
[2023-08-04 15:08] LABS: Urine Culture Reflex No No
== END 2023-08-04 18:30 | disposition short-term general hospital (02) ==
LOC: ERS 10:09
DX: F10.139 Alcohol abuse with withdrawal, unspecified (principal); K29.21 Alcoholic gastritis with bleeding; E83.42 Hypomagnesemia; E87.6 Hypokalemia; I10 Essential (primary) hypertension; F17.290 Nicotine dependence, other tobacco product, uncomplicated
CPT/HCPCS: 36415; 71045; 80053; 80307; 81001; 82550; 83605; 83690; 83735; 84484; 85025; 85610; 85730; 93005; 94760; 96361; 96365; 96366; 96367; 96375; 96376; C9113; J2060; J3411; J3475; J3480

== ENCOUNTER 2023-08-22 02:12 | Inpatient (IN) | payer OTHER ==
[2023-08-22 02:51] LABS: #Basophils 0.1 thou/uL (0.0-0.2); #Eosinphils 0.1 thou/uL (0.0-0.7); #Monocytes 0.5 thou/uL (0.11-0.59); #Neutrophils 2.7 thou/uL (1.40-6.50); %Basophils 1.3 % (0.0-1.0); %Eosinophils 2.2 % (0.0-10.0); %Lymphocytes 38.9 % (21.0-51.0); %Monocytes 8.9 % (0.0-10.0); %Neutrophils 48.3 % (42.0-75.0); Hematocrit 45.7 % (42.0-52.0); Hemoglobin 15.8 g/dL (14.0-18.0); Mean Corpuscular HGB CONC 34.6 g/dL (32.0-36.0); Mean Corpuscular Hemoglobin 30.3 pg (27.0-31.0); Mean Corpuscular Volume 87.7 fl (78.0-98.0); Mean Platelet Volume 9.1 fL (7.4-10.4); Platelet Count 210 10x3/uL (130-400); RBC Distribution Width 12.6 % (11.5-14.5); Red Blood Cell (RBC) Count 5.21 mill/uL (4.70-6.10); White Blood Cell (WBC) Count 5.5 10x3/uL (4.8-10.8)
[2023-08-22 03:17] LABS: Troponin I Less than 0.010 ng/mL (< 0.028)
[2023-08-22 03:19] LABS: Acetaminophen Less than 10 mcg/mL (10.0-30.0); Alcohol 291.7 mg/dL (Less than 10); Lipase 92 U/L (8-78); Salicylate Less than 8.0 mg/dL (15.0-30.0)
[2023-08-22 03:20] LABS: ALT (SGPT) 203 U/L (8-55); AST (SGOT) 128 U/L (5-34); Albumin 3.9 g/dL (3.5-5.0); Alkaline Phosphatase 114 U/L (40-110); Anion Gap 23 mmol/L (10-20); BUN (Urea Nitrogen) 4 mg/dL (8.9-20.6); Bilirubin, Total 0.9 mg/dL (0.2-1.2); Calc. Creatinine Clearance 0 mL/min (70-130); Carbon Dioxide 22 mmol/L (22-29); Chloride 104 mmol/L (98-107); Estimated GFR 121; Globulin 3.5 g/dL (2.4-3.5); Glucose 124 mg/dL (70-105); Potassium 3.5 mmol/L (3.5-5.1); Protein, Total 7.4 g/dL (6.0-8.3); Sodium 145 mmol/L (136-145)
[2023-08-22 03:28] LABS: Critical Call Chem-Lactate NUR.LM20@0327
[2023-08-22] MEDS ORDERED: LORazepam 2 MG/ML SYR.(CARPUJECT) ONE ×3 (03:40→11:01)
[2023-08-22] MEDS ORDERED: Ondansetron PF 4 MG/2 ML Vial ONE (03:40)
[2023-08-22] MEDS ORDERED: Thiamine HCl 200 MG/2 ML VIAL ONE (03:57)
[2023-08-22] MEDS ORDERED: chlordiazePOXIDE HCl 25 MG CAP ONE (03:57)
[2023-08-22] MEDS ORDERED: Folic Acid 1 MG TAB ONE (04:00)
[2023-08-22] MEDS ORDERED: Pantoprazole 40 MG VIAL ONE (04:57)
[2023-08-22] MEDS ORDERED: Octreotide Acetate 100 MCG/ML VIAL ONE (04:58)
[2023-08-22] MEDS ORDERED: Lorazepam 1 MG TAB PO PRN (05:00)
[2023-08-22] MEDS ORDERED: Lorazepam 2 MG/ML VIAL IM PRN (05:00)
[2023-08-22] MEDS ORDERED: Electrolyte Replacement Protocol 1 EACH FS SCH (05:00)
[2023-08-22] MEDS ORDERED: Ondansetron ODT 4 MG TAB PO PRN (05:00)
[2023-08-22] MEDS ORDERED: Octreotide Acetate 1,250 MCG in Sodium Chloride 0.9% 250 ML 250 ML IVPB SCH (05:30)
[2023-08-22] MEDS ORDERED: Pantoprazole 80 MG, Admixture Fee 1 EACH in Sodium Chloride 0.9% 100 ML IVPB SCH (05:30)
[2023-08-22] MEDS ORDERED: Lorazepam 1 MG TAB ONE (05:35)
[2023-08-22] MEDS: Lorazepam 1 MG TAB PO SCH ×4 (05:36→22:30)
[2023-08-22 06:15] LABS: HBCM Index 0.16 S/CO (0-0.79); Hep A IgM AB Non-Reactive S/CO (NonReactive); Hep A IgM S/CO 0.13 S/CO (0-0.79); Hep B Surf Ag Non-Reactive S/CO (NonReactive); Hep C IgG Ab Non-Reactive S/CO (NonReactive); Hep C Index 0.07 S/CO (0-0.79); Hepatitis B Core IgM Abs Non-Reactive S/CO (NonReactive)
[2023-08-22] MEDS ORDERED: Potassium Chloride 20 MEQ TAB PO SCH ×2 (06:15→08:00)
[2023-08-22 06:29] LABS: Lactic Acid 3.2 mmol/L (0.5-2.2)
[2023-08-22] MEDS ORDERED: Potassium Chloride 20 MEQ TAB ONE ×2 (06:54→08:48)
[2023-08-22] MEDS ORDERED: Electrolyte Replacement Protocol FS PRN (07:30)
[2023-08-22] MEDS: Sodium Chloride 0.9% 1,000 ML IV SCH ×2 (07:35→16:59)
[2023-08-22 07:48] LABS: Hematocrit 45.7 % (42.0-52.0); Hemoglobin 15.4 g/dL (14.0-18.0)
[2023-08-22 08:16] LABS: Hemoglobin A1c 5.5 % (4.0-6.0)
[2023-08-22 09:23] LABS: Troponin I Less than 0.010 ng/mL (< 0.028)
[2023-08-22 09:30] LABS: CK (CPK) 142 U/L (30-200); Magnesium 1.6 mg/dL (1.6-2.6)
[2023-08-22] MEDS ORDERED: Ondansetron ODT 4 MG TAB ONE (09:31)
[2023-08-22] MEDS ORDERED: levETIRAcetam 500 MG TAB PO SCH (10:30)
[2023-08-22] MEDS ORDERED: Magnesium Sulfate In Water 4 GM in Premix 1 BAG IVPB SCH (10:30)
[2023-08-22] MEDS ORDERED: Gabapentin 300 MG CAP PO SCH (10:30)
[2023-08-22] MEDS ORDERED: LORazepam 2 MG/ML SYR.(CARPUJECT) IVP SCH (11:00)
[2023-08-22 11:21] VITALS: BMI 30.4
[2023-08-22 11:39] LABS: Amphetamine Not Detected (NotDetected); Barbiturates Screen Not Detected (NotDetected); Benzodiazepine Screen Not Detected (NotDetected); Cocaine Metabolite Screen Not Detected (NotDetected); Methadone Not Detected (NotDetected); Methamphetamine Not Detected (NotDetected); Opiate Screen Not Detected (NotDetected); Oxycodone Screen Not Detected (NotDetected); Phencyclidine (PCP) Not Detected (NotDetected); THC/Cannabinoid Screen Not Detected (NotDetected); Tricyclic Screen Not Detected (NotDetected)
[2023-08-22 11:40] LABS: INR-International Normal Ratio 1.1; PTT 30.7 sec (22.9-36.1); Prothrombin Time 14.6 sec (12.0-14.7)
[2023-08-22 12:05] LABS: Troponin I Less than 0.010 ng/mL (< 0.028)
[2023-08-22 14:36] LABS: Potassium 4.2 mmol/L (3.5-5.1)
[2023-08-22] MEDS: levETIRAcetam 500 MG TAB PO SCH (19:51)
[2023-08-22] MEDS: Pantoprazole 40 MG VIAL IVP SCH (19:54)
[2023-08-23] MEDS: Sodium Chloride 0.9% 1,000 ML IV SCH ×3 (02:17→20:53)
[2023-08-23] MEDS: Lorazepam 1 MG TAB PO SCH ×4 (04:35→22:43)
[2023-08-23 04:38] LABS: #Eosinphils 0.2 thou/uL (0.0-0.7); #Monocytes 0.3 thou/uL (0.11-0.59); #Neutrophils 2.2 thou/uL (1.40-6.50); %Basophils 0.5 % (0.0-1.0); %Eosinophils 5.6 % (0.0-10.0); %Monocytes 7.5 % (0.0-10.0); %Neutrophils 59.1 % (42.0-75.0); Hematocrit 42.7 % (42.0-52.0); Hemoglobin 14.5 g/dL (14.0-18.0); Mean Corpuscular Hemoglobin 30.2 pg (27.0-31.0); Mean Platelet Volume 9.5 fL (7.4-10.4); Platelet Count 131 10x3/uL (130-400); RBC Distribution Width 12.1 % (11.5-14.5); White Blood Cell (WBC) Count 3.7 10x3/uL (4.8-10.8)
[2023-08-23 05:00] LABS: INR-International Normal Ratio 1.1; PTT 31.5 sec (22.9-36.1); Prothrombin Time 14.5 sec (12.0-14.7)
[2023-08-23] MEDS ORDERED: Lorazepam 1 MG TAB PO PRN (05:00)
[2023-08-23 05:12] LABS: ALT (SGPT) 163 U/L (8-55); AST (SGOT) 155 U/L (5-34); Albumin 3.4 g/dL (3.5-5.0); Alkaline Phosphatase 100 U/L (40-110); Anion Gap 15 mmol/L (10-20); BUN (Urea Nitrogen) 4 mg/dL (8.9-20.6); Bilirubin, Total 2.3 mg/dL (0.2-1.2); Calc. Creatinine Clearance 206 mL/min (70-130); Calcium 7.8 mg/dL (7.8-10.44); Carbon Dioxide 20 mmol/L (22-29); Cardiac Risk 4.7 (Less than 4.5); Chloride 104 mmol/L (98-107); Cholesterol 150 mg/dl (< 200 Desired); Estimated GFR 129; Globulin 3.3 g/dL (2.4-3.5); Glucose 84 mg/dL (70-105); HDL Cholesterol 32 mg/dL (>60 Neg Risk); LDL Cholesterol, Calculated 95 mg/dL; Lipase 43 U/L (8-78); Magnesium 2.3 mg/dL (1.6-2.6); Potassium 3.7 mmol/L (3.5-5.1); Protein, Total 6.7 g/dL (6.0-8.3); Sodium 135 mmol/L (136-145); Triglycerides 117 mg/dL (Less than 150)
[2023-08-23] MEDS: Thiamine 100 MG TAB PO SCH (08:47)
[2023-08-23] MEDS: levETIRAcetam 500 MG TAB PO SCH ×2 (08:47→20:03)
[2023-08-23] MEDS: Gabapentin 300 MG CAP PO SCH (08:47)
[2023-08-23] MEDS: Folic Acid 1 MG TAB PO SCH (08:49)
[2023-08-23] MEDS: Pantoprazole 40 MG VIAL IVP SCH ×2 (08:50→20:03)
[2023-08-23] MEDS ORDERED: Amlodipine 5 MG TAB PO SCH ×2 (09:00→14:30)
[2023-08-23] MEDS: cloNIDine 0.1mg/24 Hour PATCH TD SCH ×2 (16:13→16:27)
[2023-08-23] MEDS ORDERED: Ondansetron PF 4 MG/2 ML Vial IVP PRN (16:16)
[2023-08-24 04:24] LABS: #Eosinphils 0.3 thou/uL (0.0-0.7); #Monocytes 0.2 thou/uL (0.11-0.59); #Neutrophils 2.8 thou/uL (1.40-6.50); %Basophils 0.7 % (0.0-1.0); %Eosinophils 7.7 % (0.0-10.0); %Lymphocytes 18.6 % (21.0-51.0); %Monocytes 5.6 % (0.0-10.0); %Neutrophils 67.2 % (42.0-75.0); Hematocrit 40.8 % (42.0-52.0); Hemoglobin 14.1 g/dL (14.0-18.0); Mean Corpuscular HGB CONC 34.6 g/dL (32.0-36.0); Mean Corpuscular Hemoglobin 30.2 pg (27.0-31.0); Mean Corpuscular Volume 87.4 fl (78.0-98.0); Mean Platelet Volume 9.8 fL (7.4-10.4); Platelet Count 120 10x3/uL (130-400); RBC Distribution Width 12.1 % (11.5-14.5); Red Blood Cell (RBC) Count 4.67 mill/uL (4.70-6.10); White Blood Cell (WBC) Count 4.1 10x3/uL (4.8-10.8)
[2023-08-24 04:37] LABS: INR-International Normal Ratio 1.2
[2023-08-24 04:38] LABS: PTT 31.8 sec (22.9-36.1)
[2023-08-24] MEDS: Lorazepam 1 MG TAB PO SCH (04:55)
[2023-08-24 04:58] LABS: ALT (SGPT) 288 U/L (8-55); AST (SGOT) 529 U/L (5-34); Albumin 3.5 g/dL (3.5-5.0); Alkaline Phosphatase 104 U/L (40-110); Anion Gap 13 mmol/L (10-20); BUN (Urea Nitrogen) 5 mg/dL (8.9-20.6); Bilirubin, Total 2.4 mg/dL (0.2-1.2); Calc. Creatinine Clearance 203 mL/min (70-130); Calcium 8.2 mg/dL (7.8-10.44); Carbon Dioxide 20 mmol/L (22-29); Chloride 103 mmol/L (98-107); Estimated GFR 128; Globulin 3.4 g/dL (2.4-3.5); Glucose 86 mg/dL (70-105); Potassium 3.7 mmol/L (3.5-5.1); Protein, Total 6.9 g/dL (6.0-8.3); Sodium 132 mmol/L (136-145)
[2023-08-24] MEDS ORDERED: Lorazepam 1 MG TAB PO PRN (05:00)
[2023-08-24] MEDS ORDERED: Magnesium 2 GM/50 ML(in water) 2 GM in Premix 1 BAG IVPB SCH (05:45)
[2023-08-24] MEDS: Sodium Chloride 0.9% 1,000 ML IV SCH (06:22)
[2023-08-24] MEDS: Pantoprazole 40 MG VIAL IVP SCH ×2 (08:27→21:18)
[2023-08-24] MEDS: levETIRAcetam 500 MG TAB PO SCH ×2 (08:27→21:18)
[2023-08-24] MEDS: Thiamine 100 MG TAB PO SCH (08:27)
[2023-08-24] MEDS: Amlodipine 10 MG TAB PO SCH (08:27)
[2023-08-24] MEDS: Gabapentin 300 MG CAP PO SCH ×3 (08:28→21:17)
[2023-08-24] MEDS: Folic Acid 1 MG TAB PO SCH (08:28)
[2023-08-24] MEDS: Lorazepam 0.5 MG TAB PO SCH ×4 (11:05→22:43)
[2023-08-25] MEDS: Lorazepam 0.5 MG TAB PO SCH (04:47)
[2023-08-25 05:06] LABS: #Eosinphils 0.3 thou/uL (0.0-0.7); #Monocytes 0.3 thou/uL (0.11-0.59); #Neutrophils 3.1 thou/uL (1.40-6.50); %Basophils 0.6 % (0.0-1.0); %Eosinophils 5.3 % (0.0-10.0); %Lymphocytes 23.3 % (21.0-51.0); %Monocytes 6.6 % (0.0-10.0); %Neutrophils 63.6 % (42.0-75.0); Hematocrit 43.6 % (42.0-52.0); Hemoglobin 14.9 g/dL (14.0-18.0); Mean Corpuscular HGB CONC 34.2 g/dL (32.0-36.0); Mean Corpuscular Hemoglobin 30.6 pg (27.0-31.0); Mean Corpuscular Volume 89.5 fl (78.0-98.0); Mean Platelet Volume 10.3 fL (7.4-10.4); Platelet Count 139 10x3/uL (130-400); RBC Distribution Width 12.1 % (11.5-14.5); Red Blood Cell (RBC) Count 4.87 mill/uL (4.70-6.10); White Blood Cell (WBC) Count 4.9 10x3/uL (4.8-10.8)
[2023-08-25 05:20] LABS: INR-International Normal Ratio 1.2; PTT 29.8 sec (22.9-36.1); Prothrombin Time 15.2 sec (12.0-14.7)
[2023-08-25 05:35] LABS: ALT (SGPT) 261 U/L (8-55); AST (SGOT) 368 U/L (5-34); Albumin 3.9 g/dL (3.5-5.0); Alkaline Phosphatase 127 U/L (40-110); Anion Gap 12 mmol/L (10-20); BUN (Urea Nitrogen) 8 mg/dL (8.9-20.6); Bilirubin, Total 2.2 mg/dL (0.2-1.2); Calc. Creatinine Clearance 191 mL/min (70-130); Carbon Dioxide 20 mmol/L (22-29); Chloride 105 mmol/L (98-107); Estimated GFR 127; Globulin 3.7 g/dL (2.4-3.5); Glucose 115 mg/dL (70-105); Magnesium 1.9 mg/dL (1.6-2.6); Potassium 3.8 mmol/L (3.5-5.1); Protein, Total 7.6 g/dL (6.0-8.3); Sodium 133 mmol/L (136-145)
[2023-08-25] MEDS: Lorazepam 0.5 MG TAB PO PRN ×4 (10:02→22:30)
[2023-08-25] MEDS: levETIRAcetam 500 MG TAB PO SCH ×2 (10:03→20:52)
[2023-08-25] MEDS: Folic Acid 1 MG TAB PO SCH (10:03)
[2023-08-25] MEDS: Gabapentin 300 MG CAP PO SCH ×3 (10:03→20:52)
[2023-08-25] MEDS: Thiamine 100 MG TAB PO SCH (10:04)
[2023-08-25] MEDS: Amlodipine 10 MG TAB PO SCH (10:04)
[2023-08-25] MEDS: Pantoprazole 40 MG VIAL IVP SCH ×2 (10:04→20:52)
[2023-08-25] MEDS ORDERED: Magnesium 2 GM/50 ML(in water) 2 GM in Premix 1 BAG IVPB SCH (12:45)
[2023-08-26] MEDS: Lorazepam 0.5 MG TAB PO PRN ×2 (05:14→08:59)
[2023-08-26 06:21] LABS: #Eosinphils 0.3 thou/uL (0.0-0.7); #Monocytes 0.4 thou/uL (0.11-0.59); #Neutrophils 4.4 thou/uL (1.40-6.50); %Basophils 0.6 % (0.0-1.0); %Eosinophils 4.3 % (0.0-10.0); %Lymphocytes 19.8 % (21.0-51.0); %Monocytes 6.7 % (0.0-10.0); %Neutrophils 68.1 % (42.0-75.0); Hematocrit 44.2 % (42.0-52.0); Hemoglobin 15.2 g/dL (14.0-18.0); Mean Corpuscular HGB CONC 34.4 g/dL (32.0-36.0); Mean Corpuscular Hemoglobin 30.3 pg (27.0-31.0); Platelet Count 124 10x3/uL (130-400); RBC Distribution Width 12.3 % (11.5-14.5); Red Blood Cell (RBC) Count 5.02 mill/uL (4.70-6.10); White Blood Cell (WBC) Count 6.5 10x3/uL (4.8-10.8)
[2023-08-26 06:34] LABS: INR-International Normal Ratio 1.1; PTT 29.6 sec (22.9-36.1); Prothrombin Time 14.6 sec (12.0-14.7)
[2023-08-26 06:42] LABS: ALT (SGPT) 207 U/L (8-55); AST (SGOT) 223 U/L (5-34); Alkaline Phosphatase 119 U/L (40-110); Anion Gap 11 mmol/L (10-20); BUN (Urea Nitrogen) 12 mg/dL (8.9-20.6); Calc. Creatinine Clearance 196 mL/min (70-130); Carbon Dioxide 20 mmol/L (22-29); Chloride 105 mmol/L (98-107); Estimated GFR 128; Globulin 3.6 g/dL (2.4-3.5); Glucose 103 mg/dL (70-105); Magnesium 1.9 mg/dL (1.6-2.6); Potassium 3.9 mmol/L (3.5-5.1); Protein, Total 7.6 g/dL (6.0-8.3); Sodium 132 mmol/L (136-145)
[2023-08-26] MEDS ORDERED: Magnesium 2 GM/50 ML(in water) 2 GM in Premix 1 BAG IVPB SCH (08:00)
[2023-08-26] MEDS: Amlodipine 10 MG TAB PO SCH (08:59)
[2023-08-26] MEDS: Folic Acid 1 MG TAB PO SCH (08:59)
[2023-08-26] MEDS: levETIRAcetam 500 MG TAB PO SCH (09:00)
[2023-08-26] MEDS: Thiamine 100 MG TAB PO SCH (09:00)
[2023-08-26] MEDS: Gabapentin 300 MG CAP PO SCH (09:00)
[2023-08-26] MEDS: Pantoprazole 40 MG VIAL IVP SCH (09:00)
[2023-08-26 12:29] VITALS: BP 143/80; TEMP 97.5
== END 2023-08-26 12:36 | disposition home or self-care (01) | DRG 896 ==
LOC: ERS 02:12 → ERHOLD 04:32 → 2NO 12:39 → T4-B 08-25 15:14
PROVIDERS: ADMIT Student in an Organized Health Care Education/Training Program; ATTEND Internal Medicine
DX: F10.139 Alcohol abuse with withdrawal, unspecified (principal); K85.90 Acute pancreatitis without necrosis or infection, unspecified; E87.20 Acidosis, unspecified; K92.0 Hematemesis; I10 Essential (primary) hypertension; F41.9 Anxiety disorder, unspecified; F32.A Depression, unspecified; K20.90 Esophagitis, unspecified without bleeding; G62.9 Polyneuropathy, unspecified; F43.10 Post-traumatic stress disorder, unspecified; Z87.891 Personal history of nicotine dependence; Z98.890 Other specified postprocedural states; Z91.018 Allergy to other foods; Z91.09 Other allergy status, other than to drugs and biological substances; Z79.899 Other long term (current) drug therapy
CPT/HCPCS: 36415; 70450; 70486; 71045; 76705; 80053; 80061; 80074; 80306; 80307; 82550; 82607; 83036; 83605; 83690; 83735; 84443; 84484; 85025; 85610; 85730; 86850; 86900; 86901; 93005; 93010; 94760; C9113; J2060; J2354; J2405; J3411; J3475; J7050; Q0162

== ENCOUNTER 2023-09-15 01:53 | Inpatient (IN) | payer OTHER ==
[2023-09-15] MEDS ORDERED: LORazepam 2 MG/ML SYR.(CARPUJECT) ONE ×3 (02:03→08:00)
[2023-09-15] MEDS ORDERED: Pantoprazole 40 MG VIAL ONE (02:03)
[2023-09-15] MEDS ORDERED: levETIRAcetam 500 MG (5 mL) VIAL ONE ×2 (02:47→09:41)
[2023-09-15 03:03] LABS: ALT (SGPT) 112 U/L (8-55); AST (SGOT) 105 U/L (5-34); Albumin 4.1 g/dL (3.5-5.0); Alkaline Phosphatase 104 U/L (40-110); Anion Gap 14 mmol/L (10-20); BUN (Urea Nitrogen) 6 mg/dL (8.9-20.6); Bilirubin, Total 0.9 mg/dL (0.2-1.2); Calc. Creatinine Clearance 0 mL/min (70-130); Calcium 8.2 mg/dL (7.8-10.44); Carbon Dioxide 25 mmol/L (22-29); Chloride 104 mmol/L (98-107); Estimated GFR 124; Globulin 3.6 g/dL (2.4-3.5); Glucose 109 mg/dL (70-105); Potassium 3.4 mmol/L (3.5-5.1); Protein, Total 7.7 g/dL (6.0-8.3); Sodium 140 mmol/L (136-145)
[2023-09-15 03:06] LABS: Phosphorus 2.2 mg/dL (2.3-4.7); Troponin I Less than 0.010 ng/mL (< 0.028)
[2023-09-15 03:08] LABS: Acetaminophen Less than 10 mcg/mL (10.0-30.0); Alcohol 320.5 mg/dL (Less than 10); Lipase 89 U/L (8-78); Magnesium 1.5 mg/dL (1.6-2.6); Salicylate Less than 8.0 mg/dL (15.0-30.0)
[2023-09-15] MEDS ORDERED: Magnesium 2 GM/50 ML BAG (IN WATER) ONE (03:29)
[2023-09-15 03:37] LABS: #Eosinphils 0.1 thou/uL (0.0-0.7); #Monocytes 0.4 thou/uL (0.11-0.59); %Basophils 0.7 % (0.0-1.0); %Eosinophils 2.3 % (0.0-10.0); %Lymphocytes 36.2 % (21.0-51.0); %Monocytes 7.7 % (0.0-10.0); %Neutrophils 52.8 % (42.0-75.0); Hematocrit 43.8 % (42.0-52.0); Hemoglobin 15.1 g/dL (14.0-18.0); Mean Corpuscular HGB CONC 34.5 g/dL (32.0-36.0); Mean Corpuscular Hemoglobin 30.3 pg (27.0-31.0); Mean Corpuscular Volume 87.8 fl (78.0-98.0); Mean Platelet Volume 9.5 fL (7.4-10.4); Platelet Count 185 10x3/uL (130-400); RBC Distribution Width 12.3 % (11.5-14.5); Red Blood Cell (RBC) Count 4.99 mill/uL (4.70-6.10); White Blood Cell (WBC) Count 5.8 10x3/uL (4.8-10.8)
[2023-09-15] MEDS ORDERED: Acetaminophen 500 MG TAB PO PRN (05:38)
[2023-09-15] MEDS ORDERED: Lorazepam 2 MG/ML VIAL IM PRN (05:43)
[2023-09-15] MEDS ORDERED: Electrolyte Replacement Protocol 1 EACH FS SCH (05:45)
[2023-09-15 07:09] LABS: Amphetamine Not Detected (NotDetected); Barbiturates Screen Not Detected (NotDetected); Benzodiazepine Screen Detected (NotDetected); Cocaine Metabolite Screen Not Detected (NotDetected); Methadone Not Detected (NotDetected); Methamphetamine Not Detected (NotDetected); Opiate Screen Not Detected (NotDetected); Oxycodone Screen Not Detected (NotDetected); Phencyclidine (PCP) Not Detected (NotDetected); THC/Cannabinoid Screen Not Detected (NotDetected); Tricyclic Screen Not Detected (NotDetected)
[2023-09-15 08:51] LABS: #Basophils 0.1 thou/uL (0.0-0.2); #Eosinphils 0.1 thou/uL (0.0-0.7); #Monocytes 0.4 thou/uL (0.11-0.59); #Neutrophils 3.1 thou/uL (1.40-6.50); %Basophils 0.9 % (0.0-1.0); %Eosinophils 1.5 % (0.0-10.0); %Lymphocytes 30.4 % (21.0-51.0); %Monocytes 8.3 % (0.0-10.0); %Neutrophils 58.5 % (42.0-75.0); Hematocrit 41.1 % (42.0-52.0); Hemoglobin 13.9 g/dL (14.0-18.0); Mean Corpuscular HGB CONC 33.8 g/dL (32.0-36.0); Mean Corpuscular Hemoglobin 30.2 pg (27.0-31.0); Mean Corpuscular Volume 89.2 fl (78.0-98.0); Mean Platelet Volume 9.4 fL (7.4-10.4); Platelet Count 159 10x3/uL (130-400); RBC Distribution Width 12.4 % (11.5-14.5); Red Blood Cell (RBC) Count 4.61 mill/uL (4.70-6.10); White Blood Cell (WBC) Count 5.3 10x3/uL (4.8-10.8)
[2023-09-15 09:18] LABS: Troponin I Less than 0.010 ng/mL (< 0.028)
[2023-09-15] MEDS: Lorazepam 1 MG TAB PO SCH (09:21)
[2023-09-15] MEDS ORDERED: Thiamine HCl 200 MG/2 ML VIAL ONE (09:42)
[2023-09-15] MEDS ORDERED: Folic Acid 1 MG TAB ONE (09:42)
[2023-09-15] MEDS ORDERED: Multivit, Therapeutic 1 TAB ONE (09:42)
[2023-09-15] MEDS ORDERED: Potassium Chloride 20 MEQ TAB ONE (09:42)
[2023-09-15] MEDS: Thiamine HCl 200 MG/2 ML VIAL SLOW IVP SCH (09:47)
[2023-09-15] MEDS: Folic Acid 1 MG TAB PO SCH (09:47)
[2023-09-15] MEDS: Multivit, Therapeutic 1 TAB PO SCH (09:47)
[2023-09-15] MEDS: levETIRAcetam 500 MG (5 mL) VIAL SLOW IVP SCH (09:47)
[2023-09-15] MEDS: Potassium Chloride 20 MEQ TAB PO SCH (09:47)
[2023-09-15] MEDS ORDERED: Ondansetron PF 4 MG/2 ML Vial ONE (13:03)
[2023-09-15] MEDS: Ondansetron PF 4 MG/2 ML Vial IVP PRN (13:06)
[2023-09-15 13:56] LABS: Hemoglobin 15.2 g/dL (14.0-18.0)
[2023-09-15] MEDS ORDERED: Lorazepam 1 MG TAB ONE (14:09)
[2023-09-15 14:19] VITALS: BMI 31.1
[2023-09-15] MEDS: Lorazepam 2 MG/ML VIAL SLOW IVP SCH (15:51)
[2023-09-15] MEDS: Lorazepam 1 MG TAB PO PRN (17:27)
[2023-09-15] MEDS: Promethazine HCl 12.5 MG in Sodium Chloride 0.9% 50 ML IVPB PRN (20:30)
[2023-09-15] MEDS: Pantoprazole 40 MG VIAL IVP SCH (20:42)
[2023-09-16 02:06] LABS: Amphetamine Not Detected (NotDetected); Barbiturates Screen Not Detected (NotDetected); Benzodiazepine Screen Detected (NotDetected); Cocaine Metabolite Screen Not Detected (NotDetected); Methadone Not Detected (NotDetected); Methamphetamine Not Detected (NotDetected); Opiate Screen Not Detected (NotDetected); Oxycodone Screen Not Detected (NotDetected); Phencyclidine (PCP) Not Detected (NotDetected); THC/Cannabinoid Screen Not Detected (NotDetected); Tricyclic Screen Not Detected (NotDetected)
[2023-09-16 05:55] LABS: #Eosinphils 0.2 thou/uL (0.0-0.7); #Monocytes 0.5 thou/uL (0.11-0.59); #Neutrophils 2.7 thou/uL (1.40-6.50); %Basophils 0.6 % (0.0-1.0); %Eosinophils 3.2 % (0.0-10.0); %Lymphocytes 27.2 % (21.0-51.0); %Monocytes 10.6 % (0.0-10.0); %Neutrophils 58.2 % (42.0-75.0); Hematocrit 38.8 % (42.0-52.0); Hemoglobin 13.5 g/dL (14.0-18.0); Mean Corpuscular HGB CONC 34.8 g/dL (32.0-36.0); Mean Corpuscular Hemoglobin 30.8 pg (27.0-31.0); Mean Corpuscular Volume 88.4 fl (78.0-98.0); Mean Platelet Volume 9.7 fL (7.4-10.4); Platelet Count 128 10x3/uL (130-400); RBC Distribution Width 11.9 % (11.5-14.5); Red Blood Cell (RBC) Count 4.39 mill/uL (4.70-6.10); White Blood Cell (WBC) Count 4.6 10x3/uL (4.8-10.8)
[2023-09-16 06:27] LABS: ALT (SGPT) 84 U/L (8-55); AST (SGOT) 93 U/L (5-34); Albumin 3.9 g/dL (3.5-5.0); Alkaline Phosphatase 89 U/L (40-110); Anion Gap 14 mmol/L (10-20); BUN (Urea Nitrogen) 11 mg/dL (8.9-20.6); Bilirubin, Total 2.1 mg/dL (0.2-1.2); Calc. Creatinine Clearance 181 mL/min (70-130); Calcium 8.5 mg/dL (7.8-10.44); Carbon Dioxide 23 mmol/L (22-29); Chloride 102 mmol/L (98-107); Estimated GFR 123; Globulin 3.2 g/dL (2.4-3.5); Glucose 79 mg/dL (70-105); Magnesium 1.7 mg/dL (1.6-2.6); Potassium 3.6 mmol/L (3.5-5.1); Protein, Total 7.1 g/dL (6.0-8.3); Sodium 135 mmol/L (136-145)
[2023-09-16] MEDS: Magnesium 2 GM/50 ML(in water) 2 GM in Premix 1 BAG IVPB SCH (08:25)
[2023-09-16] MEDS: Lorazepam 1 MG TAB PO PRN (11:39)
[2023-09-17] MEDS: Lorazepam 1 MG TAB PO PRN (06:26)
[2023-09-17] MEDS: Lorazepam 0.5 MG TAB PO SCH (08:28)
[2023-09-17 13:05] VITALS: BP 120/77; TEMP 97.6
[2023-09-17] MEDS ORDERED: levETIRAcetam 500 MG TAB PO SCH (21:00)
[2023-09-18] MEDS ORDERED: Lorazepam 0.5 MG TAB PO PRN (05:43)
[2023-09-18] MEDS ORDERED: Thiamine 100 MG TAB PO SCH (09:00)
== END 2023-09-17 16:42 | disposition left against medical advice (07) | DRG 101 ==
LOC: ERS 01:53 → ERHOLD 05:40 → 2SW 15:20 → OBSVTOIN 09-16 09:12
PROVIDERS: ADMIT Internal Medicine; ATTEND Internal Medicine
DX: G40.909 Epilepsy, unspecified, not intractable, without status epilepticus (principal); F10.239 Alcohol dependence with withdrawal, unspecified; E87.6 Hypokalemia; E83.42 Hypomagnesemia; E83.39 Other disorders of phosphorus metabolism; I10 Essential (primary) hypertension; F41.9 Anxiety disorder, unspecified; Z79.899 Other long term (current) drug therapy; Z88.8 Allergy status to other drugs, medicaments and biological substances; F43.10 Post-traumatic stress disorder, unspecified; F31.9 Bipolar disorder, unspecified; F17.290 Nicotine dependence, other tobacco product, uncomplicated
CPT/HCPCS: 36415; 80053; 80177; 80306; 80307; 83690; 83735; 84100; 84484; 85025; 93005; 96361; 96374; 96375; 96376; C9113; G0378; J1953; J2060; J2405; J2550; J3411; J3475

== ENCOUNTER 2023-09-29 03:31 | Inpatient (IN) | payer OTHER ==
[2023-09-29] MEDS ORDERED: LORazepam 2 MG/ML SYR.(CARPUJECT) ONE ×2 (03:44→05:04)
[2023-09-29] MEDS ORDERED: Ondansetron PF 4 MG/2 ML Vial ONE ×2 (03:54→04:39)
[2023-09-29] MEDS ORDERED: Thiamine HCl 200 MG/2 ML VIAL ONE (03:54)
[2023-09-29 04:13] LABS: #Basophils 0.1 thou/uL (0.0-0.2); #Eosinphils 0.1 thou/uL (0.0-0.7); #Monocytes 0.7 thou/uL (0.11-0.59); #Neutrophils 4.9 thou/uL (1.40-6.50); %Eosinophils 0.9 % (0.0-10.0); %Lymphocytes 25.6 % (21.0-51.0); %Monocytes 8.8 % (0.0-10.0); %Neutrophils 63.4 % (42.0-75.0); Hematocrit 43.1 % (42.0-52.0); Hemoglobin 15.4 g/dL (14.0-18.0); Mean Corpuscular HGB CONC 35.7 g/dL (32.0-36.0); Mean Corpuscular Hemoglobin 30.8 pg (27.0-31.0); Mean Corpuscular Volume 86.2 fl (78.0-98.0); Mean Platelet Volume 9.4 fL (7.4-10.4); Platelet Count 229 10x3/uL (130-400); RBC Distribution Width 12.3 % (11.5-14.5); White Blood Cell (WBC) Count 7.7 10x3/uL (4.8-10.8)
[2023-09-29 04:37] LABS: Acetaminophen Less than 10 mcg/mL (10.0-30.0); Alcohol Less than 10.0 mg/dL (Less than 10); Lipase 250 U/L (8-78); Magnesium 1.1 mg/dL (1.6-2.6); Salicylate Less than 8.0 mg/dL (15.0-30.0)
[2023-09-29 04:38] LABS: ALT (SGPT) 212 U/L (8-55); AST (SGOT) 95 U/L (5-34); Albumin 4.4 g/dL (3.5-5.0); Alkaline Phosphatase 105 U/L (40-110); Anion Gap 18 mmol/L (10-20); BUN (Urea Nitrogen) 5 mg/dL (8.9-20.6); Bilirubin, Total 1.2 mg/dL (0.2-1.2); Calc. Creatinine Clearance 0 mL/min (70-130); Calcium 9.3 mg/dL (7.8-10.44); Carbon Dioxide 23 mmol/L (22-29); Chloride 102 mmol/L (98-107); Estimated GFR 121; Globulin 3.8 g/dL (2.4-3.5); Glucose 107 mg/dL (70-105); Potassium 3.4 mmol/L (3.5-5.1); Protein, Total 8.2 g/dL (6.0-8.3); Sodium 140 mmol/L (136-145)
[2023-09-29 04:41] LABS: Troponin I Less than 0.010 ng/mL (< 0.028)
[2023-09-29] MEDS ORDERED: Magnesium 2 GM/50 ML BAG (IN WATER) ONE (05:09)
[2023-09-29] MEDS ORDERED: Potassium Chloride 20 MEQ TAB ONE (05:25)
[2023-09-29 07:12] LABS: Amphetamine Not Detected (NotDetected); Barbiturates Screen Not Detected (NotDetected); Benzodiazepine Screen Detected (NotDetected); Cocaine Metabolite Screen Not Detected (NotDetected); Methadone Not Detected (NotDetected); Methamphetamine Not Detected (NotDetected); Opiate Screen Not Detected (NotDetected); Oxycodone Screen Not Detected (NotDetected); Phencyclidine (PCP) Not Detected (NotDetected); THC/Cannabinoid Screen Detected (NotDetected); Tricyclic Screen Not Detected (NotDetected)
[2023-09-29 07:18] LABS: Bacteria/HPF None Seen HPF (None Seen); Bilirubin Negative (Negative); Blood, Urine Negative (Negative); CAUTI Indications for Culture Fever or rigors; Clarity Clear (Clear); Glucose, Urine (Dipstick) Normal (Negative); Ketone, Urine Negative (Negative); Leukocyte Negative Leu/uL (Negative); Nitrite Negative (Negative); Protein, Urine (Dipstick) 20 mg/dL (Neg-Trace); RBC/HPF 0-3 HPF (0-3); Specific Gravity, Urine 1.031 (1.002-1.036); Squamous Epithelial None Seen HPF (0-3); Urobilinogen Normal mg/dL (Less than 2); WBC/HPF 0-3 HPF (0-3); pH, Urine 8.5 (5.0-9.0)
[2023-09-29 07:20] LABS: Urine Culture Reflex No No
[2023-09-29] MEDS ORDERED: levETIRAcetam 500 MG (5 mL) VIAL ONE (08:00)
[2023-09-29] MEDS ORDERED: Ondansetron PF 4 MG/2 ML Vial IVP PRN (08:13)
[2023-09-29] MEDS ORDERED: Lorazepam 1 MG TAB PO PRN (08:13)
[2023-09-29] MEDS ORDERED: Ondansetron ODT 4 MG TAB PO PRN (08:13)
[2023-09-29] MEDS ORDERED: Lorazepam 2 MG/ML VIAL IM PRN (08:13)
[2023-09-29] MEDS ORDERED: Electrolyte Replacement Protocol 1 EACH FS SCH (08:15)
[2023-09-29] MEDS ORDERED: Ibuprofen 200 MG TAB PO PRN (08:20)
[2023-09-29] MEDS: Lidocaine 2% Viscous 10 mL, Alum & Magn 30 mL SSW SCH (08:30)
[2023-09-29] MEDS ORDERED: Amlodipine 5 MG TAB ONE (10:24)
[2023-09-29] MEDS ORDERED: chlordiazePOXIDE HCl 25 MG CAP ONE ×2 (10:24→17:01)
[2023-09-29] MEDS ORDERED: Lorazepam 1 MG TAB ONE ×2 (10:24→17:01)
[2023-09-29] MEDS ORDERED: Folic Acid 1 MG TAB ONE (10:24)
[2023-09-29] MEDS: Folic Acid 1 MG TAB PO SCH (10:29)
[2023-09-29] MEDS: Amlodipine 5 MG TAB PO SCH (10:30)
[2023-09-29] MEDS: chlordiazePOXIDE HCl 25 MG CAP PO SCH (10:30)
[2023-09-29] MEDS: Lactated Ringer's 1,000 ML IV SCH (10:31)
[2023-09-29] MEDS: Lorazepam 1 MG TAB PO SCH (10:32)
[2023-09-29] MEDS ORDERED: Multivit, Therapeutic 1 TAB ONE (12:48)
[2023-09-29] MEDS ORDERED: Pantoprazole 40 MG VIAL ONE (12:50)
[2023-09-29] MEDS: Multivit, Therapeutic 1 TAB PO SCH (13:01)
[2023-09-29] MEDS: Pantoprazole 40 MG VIAL IVP SCH (13:02)
[2023-09-29] MEDS ORDERED: Iopamidol-370 76% 500 ML MDV (1 ML CHARGE) ONE (13:23)
[2023-09-29 17:53] VITALS: BMI 31.1
[2023-09-29] MEDS: levETIRAcetam 500 MG (5 mL) VIAL SLOW IVP SCH (20:28)
[2023-09-30 04:53] VITALS: TEMP 98.3
[2023-09-30 05:27] LABS: #Basophils 0.1 thou/uL (0.0-0.2); #Eosinphils 0.2 thou/uL (0.0-0.7); #Monocytes 0.4 thou/uL (0.11-0.59); #Neutrophils 3.2 thou/uL (1.40-6.50); %Basophils 1.3 % (0.0-1.0); %Eosinophils 4.4 % (0.0-10.0); %Lymphocytes 19.4 % (21.0-51.0); %Monocytes 8.4 % (0.0-10.0); %Neutrophils 65.9 % (42.0-75.0); Hemoglobin 14.2 g/dL (14.0-18.0); Mean Corpuscular HGB CONC 35.5 g/dL (32.0-36.0); Mean Corpuscular Hemoglobin 30.9 pg (27.0-31.0); Mean Platelet Volume 9.9 fL (7.4-10.4); Platelet Count 170 10x3/uL (130-400); RBC Distribution Width 12.2 % (11.5-14.5); White Blood Cell (WBC) Count 4.8 10x3/uL (4.8-10.8)
[2023-09-30 05:50] LABS: Anion Gap 11 mmol/L (10-20); BUN (Urea Nitrogen) 6 mg/dL (8.9-20.6); Calc. Creatinine Clearance 179 mL/min (70-130); Carbon Dioxide 28 mmol/L (22-29); Chloride 103 mmol/L (98-107); Estimated GFR 123; Glucose 84 mg/dL (70-105); Sodium 138 mmol/L (136-145)
[2023-09-30] MEDS ORDERED: Lorazepam 1 MG TAB PO PRN (08:14)
[2023-09-30] MEDS: Thiamine HCl 200 MG/2 ML VIAL SLOW IVP SCH (09:12)
[2023-09-30 12:48] VITALS: BP 137/86
[2023-10-01] MEDS ORDERED: Lorazepam 1 MG TAB PO PRN (08:14)
[2023-10-01] MEDS ORDERED: Lorazepam 0.5 MG TAB PO SCH (08:15)
[2023-10-01] MEDS ORDERED: Thiamine 100 MG TAB PO SCH (09:00)
[2023-10-02] MEDS ORDERED: Lorazepam 0.5 MG TAB PO PRN (08:14)
[2023-10-02] MEDS ORDERED: FLU VACC QS2023-24(6MOS UP)/PF 60 MCG/0.5 ML SYRINGE IM ONE (09:00)
== END 2023-09-30 14:52 | disposition home or self-care (01) | DRG 897 ==
LOC: ERS 03:31 → ERHOLD 07:42 → T4-A 17:55
PROVIDERS: ADMIT Internal Medicine; ATTEND Hospitalist
DX: F10.239 Alcohol dependence with withdrawal, unspecified (principal); G40.909 Epilepsy, unspecified, not intractable, without status epilepticus; F43.10 Post-traumatic stress disorder, unspecified; I10 Essential (primary) hypertension; F17.210 Nicotine dependence, cigarettes, uncomplicated; E87.6 Hypokalemia; F41.1 Generalized anxiety disorder; E83.42 Hypomagnesemia; Z88.8 Allergy status to other drugs, medicaments and biological substances; Z79.899 Other long term (current) drug therapy; Z91.018 Allergy to other foods; Z98.890 Other specified postprocedural states
CPT/HCPCS: 36415; 71045; 71275; 80048; 80053; 80306; 80307; 81001; 83690; 83735; 84484; 85025; 93005; 96365; 96367; 96375; 96376; C9113; J1953; J2060; J2405; J3411; J3475; J7120; Q9967

== ENCOUNTER 2023-10-16 01:52 | Emergency (ER) | payer OTHER ==
[2023-10-16 03:10] LABS: #Basophils 0.1 thou/uL (0.0-0.2); #Eosinphils 0.2 thou/uL (0.0-0.7); #Monocytes 0.3 thou/uL (0.11-0.59); #Neutrophils 3.5 thou/uL (1.40-6.50); %Basophils 0.9 % (0.0-1.0); %Eosinophils 2.6 % (0.0-10.0); %Lymphocytes 40.7 % (21.0-51.0); %Monocytes 4.1 % (0.0-10.0); %Neutrophils 51.3 % (42.0-75.0); Hemoglobin 16.7 g/dL (14.0-18.0); Mean Corpuscular HGB CONC 35.5 g/dL (32.0-36.0); Mean Corpuscular Hemoglobin 30.4 pg (27.0-31.0); Mean Corpuscular Volume 85.6 fl (78.0-98.0); Platelet Count 186 10x3/uL (130-400); RBC Distribution Width 12.5 % (11.5-14.5); Red Blood Cell (RBC) Count 5.49 mill/uL (4.70-6.10); White Blood Cell (WBC) Count 6.9 10x3/uL (4.8-10.8)
[2023-10-16 03:38] LABS: ALT (SGPT) 203 U/L (8-55); AST (SGOT) 152 U/L (5-34); Acetaminophen Less than 10 mcg/mL (10.0-30.0); Albumin 4.6 g/dL (3.5-5.0); Alcohol 446.4 mg/dL (Less than 10); Alkaline Phosphatase 101 U/L (40-110); Anion Gap 20 mmol/L (10-20); BUN (Urea Nitrogen) 5 mg/dL (8.9-20.6); Bilirubin, Total 0.7 mg/dL (0.2-1.2); Calc. Creatinine Clearance 0 mL/min (70-130); Carbon Dioxide 22 mmol/L (22-29); Chloride 106 mmol/L (98-107); Estimated GFR 122; Globulin 4.1 g/dL (2.4-3.5); Glucose 106 mg/dL (70-105); Lipase 83 U/L (8-78); Potassium 3.5 mmol/L (3.5-5.1); Protein, Total 8.7 g/dL (6.0-8.3); Salicylate Less than 8.0 mg/dL (15.0-30.0); Sodium 144 mmol/L (136-145)
[2023-10-16] MEDS ORDERED: LORazepam 2 MG/ML SYR.(CARPUJECT) ONE (04:20)
== END 2023-10-16 05:46 | disposition home or self-care (01) ==
LOC: ERS 01:52
DX: F10.129 Alcohol abuse with intoxication, unspecified (principal); I10 Essential (primary) hypertension; F17.290 Nicotine dependence, other tobacco product, uncomplicated; Y90.8 Blood alcohol level of 240 mg/100 ml or more; Z55.6 Problems related to health literacy
CPT/HCPCS: 36415; 80053; 80307; 83690; 85025; 93005; 96374; J2060

== ENCOUNTER 2024-01-04 19:07 | Inpatient (IN) | payer OTHER ==
[2024-01-04] MEDS ORDERED: LORazepam 2 MG/ML SYR.(CARPUJECT) ONE (20:00)
[2024-01-04] MEDS ORDERED: Magnesium 2 GM/50 ML BAG (IN WATER) ONE (20:00)
[2024-01-04 20:05] LABS: #Basophils 0.06 10x3/uL (0.0-0.2); #Eosinphils Less than 0.03 10x3/uL (0.0-0.7); %Eosinophils 0.3 % (0.0-10.0); %Lymphocytes 28.7 % (21.0-51.0); %Monocytes 9.8 % (0.0-10.0); Hemoglobin 15.8 g/dL (14.0-18.0); Mean Corpuscular HGB CONC 35.1 g/dL (32.0-36.0); Mean Corpuscular Hemoglobin 29.6 pg (27.0-31.0); Mean Corpuscular Volume 84.4 fL (78.0-98.0); Mean Platelet Volume 9.6 fL (7.4-10.4); Platelet Count 201 10x3/uL (130-400); RBC Distribution Width 13.9 % (11.5-14.5); Red Blood Cell (RBC) Count 5.33 mill/uL (4.70-6.10)
[2024-01-04 20:18] LABS: Acetaminophen Less than 10 mcg/mL (10.0-30.0); Alcohol 70.5 mg/dL (Less than 10); CK (CPK) 113 U/L (30-200); Lipase 47 U/L (8-78); Magnesium 1.2 mg/dL (1.6-2.6); Salicylate Less than 8.0 mg/dL (15.0-30.0)
[2024-01-04 20:19] LABS: ALT (SGPT) 444 U/L (8-55); AST (SGOT) 389 U/L (5-34); Albumin 4.7 g/dL (3.5-5.0); Alkaline Phosphatase 120 U/L (40-110); Anion Gap 28 mmol/L (10-20); BUN (Urea Nitrogen) 9 mg/dL (8.9-20.6); Bilirubin, Total 1.8 mg/dL (0.2-1.2); Calc. Creatinine Clearance 0 mL/min (70-130); Calcium 9.9 mg/dL (7.8-10.44); Carbon Dioxide 18 mmol/L (22-29); Chloride 104 mmol/L (98-107); Estimated GFR 113; Globulin 4.3 g/dL (2.4-3.5); Glucose 121 mg/dL (70-105); Potassium 3.7 mmol/L (3.5-5.1); Sodium 146 mmol/L (136-145)
[2024-01-04] MEDS ORDERED: levETIRAcetam 500 MG (5 mL) VIAL ONE (20:20)
[2024-01-04 20:25] LABS: Troponin I Less than 0.010 ng/mL (< 0.028)
[2024-01-04 22:05] LABS: Bacteria/HPF None Seen HPF (None Seen); Bilirubin Negative (Negative); Blood, Urine Negative (Negative); CAUTI Indications for Culture Alt mental st,lethar; Clarity Clear (Clear); Glucose, Urine (Dipstick) Normal (Negative); Ketone, Urine 60 mg/dL (Negative); Leukocyte 25 Leu/uL (Negative); Nitrite Negative (Negative); Protein, Urine (Dipstick) 30 mg/dL (Neg-Trace); RBC/HPF 0-3 HPF (0-3); Specific Gravity, Urine 1.017 (1.002-1.036); Squamous Epithelial None Seen HPF (0-3); Urobilinogen Normal mg/dL (Less than 2)
[2024-01-04 22:07] LABS: Urine Culture Reflex No No
[2024-01-04] MEDS ORDERED: chlordiazePOXIDE HCl 5 MG CAP ONE (22:10)
[2024-01-04 22:13] LABS: Amphetamine Not Detected (NotDetected); Barbiturates Screen Not Detected (NotDetected); Benzodiazepine Screen Detected (NotDetected); Cocaine Metabolite Screen Not Detected (NotDetected); Methadone Not Detected (NotDetected); Methamphetamine Not Detected (NotDetected); Opiate Screen Not Detected (NotDetected); Oxycodone Screen Not Detected (NotDetected); Phencyclidine (PCP) Not Detected (NotDetected); THC/Cannabinoid Screen Detected (NotDetected); Tricyclic Screen Not Detected (NotDetected)
[2024-01-04] MEDS ORDERED: Ondansetron PF 4 MG/2 ML Vial ONE (22:25)
[2024-01-04] MEDS ORDERED: Lorazepam 1 MG TAB PO PRN (23:07)
[2024-01-04] MEDS ORDERED: Ondansetron ODT 4 MG TAB PO PRN (23:07)
[2024-01-04] MEDS ORDERED: Lorazepam 2 MG/ML VIAL IM PRN (23:07)
[2024-01-04] MEDS ORDERED: Acetaminophen 325 MG TAB PO PRN (23:08)
[2024-01-04] MEDS ORDERED: Electrolyte Replacement Protocol 1 EACH FS SCH (23:15)
[2024-01-05 02:28] VITALS: BMI 28.6
[2024-01-05] MEDS: Lactated Ringer's 1,000 ML IV SCH (02:52)
[2024-01-05] MEDS: Lorazepam 1 MG TAB PO SCH ×2 (02:52→08:38)
[2024-01-05] MEDS: Multivit, Therapeutic 1 TAB PO SCH ×2 (02:52→08:38)
[2024-01-05] MEDS: Ondansetron PF 4 MG/2 ML Vial IVP PRN (02:53)
[2024-01-05] MEDS ORDERED: Dexmedetomidine In 0.9 % NaCl 100 ML IVPB SCH (05:00)
[2024-01-05] MEDS: Magnesium 2 GM/50 ML(in water) 2 GM in Premix 1 BAG IVPB SCH (05:04)
[2024-01-05 08:26] LABS: #Basophils 0.03 10x3/uL (0.0-0.2); %Basophils 0.7 % (0.0-1.0); %Lymphocytes 36.7 % (21.0-51.0); %Monocytes 14.3 % (0.0-10.0); %Neutrophils 47.1 % (42.0-75.0); Hematocrit 36.7 % (42.0-52.0); Hemoglobin 12.5 g/dL (14.0-18.0); Mean Corpuscular HGB CONC 34.1 g/dL (32.0-36.0); Mean Corpuscular Hemoglobin 29.9 pg (27.0-31.0); Mean Corpuscular Volume 87.8 fL (78.0-98.0); Mean Platelet Volume 10.2 fL (7.4-10.4); Platelet Count 140 10x3/uL (130-400); RBC Distribution Width 14.1 % (11.5-14.5); Red Blood Cell (RBC) Count 4.18 mill/uL (4.70-6.10)
[2024-01-05 08:38] LABS: ALT (SGPT) 290 U/L (8-55); AST (SGOT) 223 U/L (5-34); Albumin 3.7 g/dL (3.5-5.0); Alkaline Phosphatase 88 U/L (40-110); Anion Gap 15 mmol/L (10-20); BUN (Urea Nitrogen) 8 mg/dL (8.9-20.6); Bilirubin, Total 2.4 mg/dL (0.2-1.2); Calc. Creatinine Clearance 188 mL/min (70-130); Calcium 9.1 mg/dL (7.8-10.44); Carbon Dioxide 25 mmol/L (22-29); Chloride 101 mmol/L (98-107); Estimated GFR 128; Globulin 3.7 g/dL (2.4-3.5); Glucose 92 mg/dL (70-105); Potassium 3.1 mmol/L (3.5-5.1); Protein, Total 7.4 g/dL (6.0-8.3); Sodium 138 mmol/L (136-145)
[2024-01-05] MEDS: Gabapentin 300 MG CAP PO SCH (08:38)
[2024-01-05] MEDS: Folic Acid 1 MG TAB PO SCH (08:38)
[2024-01-05] MEDS: Amlodipine 5 MG TAB PO SCH (08:38)
[2024-01-05] MEDS: Famotidine 20 MG TAB PO SCH (08:38)
[2024-01-05] MEDS: levETIRAcetam 500 MG TAB PO SCH (08:38)
[2024-01-05] MEDS: Famotidine/PF 20 mg/2ml Vial SLOW IVP SCH (08:38)
[2024-01-05 08:45] LABS: INR-International Normal Ratio 1.1; Prothrombin Time 14.7 sec (12.0-14.7)
[2024-01-05 08:46] LABS: PTT 31.6 sec (22.9-36.1)
[2024-01-05] MEDS: Potassium Chloride 20 MEQ TAB PO SCH (10:46)
[2024-01-05] MEDS: Thiamine 100 MG TAB PO SCH (20:37)
[2024-01-05] MEDS ORDERED: Lorazepam 1 MG TAB PO PRN (23:07)
[2024-01-06 04:33] LABS: #Basophils 0.06 10x3/uL (0.0-0.2); %Basophils 1.3 % (0.0-1.0); %Eosinophils 3.3 % (0.0-10.0); %Lymphocytes 29.3 % (21.0-51.0); %Monocytes 9.6 % (0.0-10.0); %Neutrophils 56.3 % (42.0-75.0); Hematocrit 40.7 % (42.0-52.0); Hemoglobin 14.1 g/dL (14.0-18.0); Mean Corpuscular HGB CONC 34.6 g/dL (32.0-36.0); Mean Corpuscular Volume 83.7 fL (78.0-98.0); Mean Platelet Volume 10.3 fL (7.4-10.4); Platelet Count 142 10x3/uL (130-400); RBC Distribution Width 13.2 % (11.5-14.5); Red Blood Cell (RBC) Count 4.86 mill/uL (4.70-6.10)
[2024-01-06 04:42] LABS: ALT (SGPT) 329 U/L (8-55); AST (SGOT) 315 U/L (5-34); Alkaline Phosphatase 99 U/L (40-110); Anion Gap 17 mmol/L (10-20); BUN (Urea Nitrogen) 7 mg/dL (8.9-20.6); Bilirubin, Total 2.8 mg/dL (0.2-1.2); Calc. Creatinine Clearance 177 mL/min (70-130); Calcium 9.6 mg/dL (7.8-10.44); Carbon Dioxide 20 mmol/L (22-29); Chloride 102 mmol/L (98-107); Estimated GFR 126; Globulin 4.1 g/dL (2.4-3.5); Glucose 82 mg/dL (70-105); Potassium 3.8 mmol/L (3.5-5.1); Protein, Total 8.1 g/dL (6.0-8.3); Sodium 135 mmol/L (136-145)
[2024-01-06 11:53] VITALS: TEMP 97.9
[2024-01-06] MEDS ORDERED: Lorazepam 1 MG TAB PO PRN (23:07)
[2024-01-06] MEDS ORDERED: Lorazepam 0.5 MG TAB PO SCH (23:15)
[2024-01-07] MEDS ORDERED: Lorazepam 0.5 MG TAB PO PRN (23:07)
[2024-01-07] MEDS ORDERED: Thiamine 100 MG TAB PO SCH (23:15)
== END 2024-01-06 17:49 | disposition home or self-care (01) | DRG 897 ==
LOC: ERS 19:07 → IMCU/EMU 01-05 02:23
PROVIDERS: ADMIT Student in an Organized Health Care Education/Training Program; ATTEND Family Medicine
DX: F10.231 Alcohol dependence with withdrawal delirium (principal); E87.20 Acidosis, unspecified; F33.9 Major depressive disorder, recurrent, unspecified; Z88.8 Allergy status to other drugs, medicaments and biological substances; Z79.899 Other long term (current) drug therapy; I10 Essential (primary) hypertension; Z98.890 Other specified postprocedural states; F12.10 Cannabis abuse, uncomplicated; F41.1 Generalized anxiety disorder; F43.10 Post-traumatic stress disorder, unspecified; G40.909 Epilepsy, unspecified, not intractable, without status epilepticus; R74.01 Elevation of levels of liver transaminase levels; K70.10 Alcoholic hepatitis without ascites; E83.42 Hypomagnesemia
CPT/HCPCS: 36415; 36416; 71045; 80053; 80306; 80307; 81001; 82140; 82550; 83690; 83735; 84484; 85025; 85610; 85730; 93005; J1953; J2060; J2405; J3411; J3475; J3490; J7120

== ENCOUNTER 2024-01-16 00:33 | Inpatient (IN) | payer OTHER ==
[2024-01-16] MEDS ORDERED: Famotidine/PF 20 mg/2ml Vial ONE (00:55)
[2024-01-16] MEDS ORDERED: Pantoprazole 40 MG VIAL ONE ×2 (00:55→03:43)
[2024-01-16 01:53] LABS: #Basophils 0.06 10x3/uL (0.0-0.2); #Eosinphils Less than 0.03 10x3/uL (0.0-0.7); %Basophils 1.1 % (0.0-1.0); %Eosinophils 0.2 % (0.0-10.0); %Lymphocytes 9.4 % (21.0-51.0); %Monocytes 6.2 % (0.0-10.0); %Neutrophils 82.7 % (42.0-75.0); Hematocrit 43.5 % (42.0-52.0); Hemoglobin 14.9 g/dL (14.0-18.0); Mean Corpuscular HGB CONC 34.3 g/dL (32.0-36.0); Mean Corpuscular Hemoglobin 29.4 pg (27.0-31.0); Mean Platelet Volume 9.1 fL (7.4-10.4); Platelet Count 192 10x3/uL (130-400); RBC Distribution Width 13.9 % (11.5-14.5); Red Blood Cell (RBC) Count 5.06 mill/uL (4.70-6.10)
[2024-01-16] MEDS ORDERED: LORazepam 2 MG/ML SYR.(CARPUJECT) ONE ×2 (01:58→03:25)
[2024-01-16 02:00] LABS: Base Excess -6.2 mEq/L (-2.0 to +3.0); Calcium, Ionized (venous) 0.98 mmol/L (1.16-1.32); Chloride (VBG) 101 mmol/L (98-106); Hematocrit-VBG 47 % (42.0-52.0); Potassium (VBG) 4.06 mmol/L (3.70-5.30); Sodium 146 mmol/L (133-146); pH (venous) 7.392 (7.32-7.43)
[2024-01-16 02:08] LABS: Lipase 30 U/L (8-78); Magnesium 1.5 mg/dL (1.6-2.6)
[2024-01-16 02:09] LABS: Acetaminophen Less than 10 mcg/mL (10.0-30.0); Alcohol 188.8 mg/dL (Less than 10); Salicylate Less than 8.0 mg/dL (15.0-30.0)
[2024-01-16 02:10] LABS: ALT (SGPT) 255 U/L (8-55); AST (SGOT) 226 U/L (5-34); Albumin 4.3 g/dL (3.5-5.0); Alkaline Phosphatase 112 U/L (40-110); Anion Gap 32 mmol/L (10-20); BUN (Urea Nitrogen) 9 mg/dL (8.9-20.6); Bilirubin, Total 1.5 mg/dL (0.2-1.2); CK (CPK) 126 U/L (30-200); Calc. Creatinine Clearance 0 mL/min (70-130); Calcium 9.1 mg/dL (7.8-10.44); Carbon Dioxide 14 mmol/L (22-29); Chloride 100 mmol/L (98-107); Estimated GFR 119; Globulin 4.5 g/dL (2.4-3.5); Glucose 110 mg/dL (70-105); Potassium 3.8 mmol/L (3.5-5.1); Protein, Total 8.8 g/dL (6.0-8.3); Sodium 142 mmol/L (136-145)
[2024-01-16 02:13] LABS: Troponin I Less than 0.010 ng/mL (< 0.028)
[2024-01-16] MEDS ORDERED: levETIRAcetam 500 MG (5 mL) VIAL ONE (03:43)
[2024-01-16] MEDS ORDERED: Metoprolol Tartrate 5 MG (5 mL) VIAL ONE (03:43)
[2024-01-16] MEDS ORDERED: Acetaminophen 650 MG Suppository PR PRN (03:51)
[2024-01-16] MEDS ORDERED: Lorazepam 1 MG TAB PO PRN (03:53)
[2024-01-16] MEDS ORDERED: Lorazepam 2 MG/ML VIAL IM PRN (03:53)
[2024-01-16] MEDS ORDERED: Electrolyte Replacement Protocol FS SCH (04:00)
[2024-01-16 05:47] VITALS: BMI 27.5
[2024-01-16] MEDS: Ondansetron PF 4 MG/2 ML Vial IVP PRN (06:27)
[2024-01-16] MEDS: Lorazepam 2 MG/ML VIAL SLOW IVP PRN (06:27)
[2024-01-16] MEDS: Sodium Chloride 0.9% 1,000 ML IV SCH (06:32)
[2024-01-16] MEDS: Lorazepam 1 MG TAB PO SCH (06:33)
[2024-01-16 06:45] LABS: #Basophils 0.03 10x3/uL (0.0-0.2); #Eosinphils Less than 0.03 10x3/uL (0.0-0.7); %Basophils 0.5 % (0.0-1.0); %Lymphocytes 13.4 % (21.0-51.0); %Monocytes 7.4 % (0.0-10.0); %Neutrophils 78.4 % (42.0-75.0); Mean Corpuscular HGB CONC 34.1 g/dL (32.0-36.0); Mean Corpuscular Hemoglobin 29.5 pg (27.0-31.0); Mean Corpuscular Volume 86.5 fL (78.0-98.0); Mean Platelet Volume 9.1 fL (7.4-10.4); Platelet Count 192 10x3/uL (130-400); RBC Distribution Width 14.1 % (11.5-14.5); Red Blood Cell (RBC) Count 4.74 mill/uL (4.70-6.10)
[2024-01-16 06:56] LABS: Lactic Acid 3.8 mmol/L (0.5-2.2)
[2024-01-16 07:00] LABS: Anion Gap 22 mmol/L (10-20); BUN (Urea Nitrogen) 8 mg/dL (8.9-20.6); Calc. Creatinine Clearance 162 mL/min (70-130); Calcium 8.8 mg/dL (7.8-10.44); Carbon Dioxide 19 mmol/L (22-29); Chloride 104 mmol/L (98-107); Estimated GFR 124; Glucose 114 mg/dL (70-105); Potassium 4.1 mmol/L (3.5-5.1); Sodium 141 mmol/L (136-145)
[2024-01-16] MEDS ORDERED: Lorazepam 1 MG TAB PO SCH (08:00)
[2024-01-16 08:14] LABS: INR-International Normal Ratio 1.2; Prothrombin Time 14.9 sec (12.0-14.7)
[2024-01-16 08:25] LABS: Magnesium 1.3 mg/dL (1.6-2.6); Phosphorus 2.8 mg/dL (2.3-4.7)
[2024-01-16 08:26] LABS: ALT (SGPT) 210 U/L (8-55); AST (SGOT) 175 U/L (5-34); Albumin 3.8 g/dL (3.5-5.0); Alkaline Phosphatase 92 U/L (40-110); Bilirubin, Direct 0.6 mg/dL (0.1-0.3); Bilirubin, Total 1.5 mg/dL (0.2-1.2); Protein, Total 7.8 g/dL (6.0-8.3)
[2024-01-16] MEDS: Magnesium 2 GM/50 ML(in water) 2 GM in Premix 1 BAG IVPB SCH (08:36)
[2024-01-16] MEDS: levETIRAcetam 500 MG TAB PO SCH (08:40)
[2024-01-16] MEDS: Multivit, Therapeutic 1 TAB PO SCH (08:40)
[2024-01-16] MEDS: Gabapentin 300 MG CAP PO SCH (08:41)
[2024-01-16] MEDS: Folic Acid 1 MG TAB PO SCH (08:42)
[2024-01-16] MEDS: Diazepam 5 MG TAB PO SCH (08:48)
[2024-01-16 10:09] LABS: Hematocrit 37.8 % (42.0-52.0); Hemoglobin 12.7 g/dL (14.0-18.0); Platelet Count 169 10x3/uL (130-400)
[2024-01-16] MEDS: Thiamine HCl 200 MG/2 ML VIAL SLOW IVP SCH (10:12)
[2024-01-16] MEDS: Lactated Ringer's 1,000 ML IV SCH (10:12)
[2024-01-16 10:59] LABS: Amphetamine Not Detected (NotDetected); Barbiturates Screen Not Detected (NotDetected); Benzodiazepine Screen Detected (NotDetected); Cocaine Metabolite Screen Not Detected (NotDetected); Methadone Not Detected (NotDetected); Methamphetamine Not Detected (NotDetected); Opiate Screen Not Detected (NotDetected); Oxycodone Screen Not Detected (NotDetected); Phencyclidine (PCP) Not Detected (NotDetected); THC/Cannabinoid Screen Detected (NotDetected); Tricyclic Screen Not Detected (NotDetected)
[2024-01-16 16:55] LABS: Hematocrit 34.6 % (42.0-52.0); Hemoglobin 11.8 g/dL (14.0-18.0); Platelet Count 132 10x3/uL (130-400)
[2024-01-16] MEDS: Pantoprazole 40 MG VIAL IVP SCH (20:22)
[2024-01-16 21:41] LABS: Hemoglobin 11.6 g/dL (14.0-18.0); Platelet Count 112 10x3/uL (130-400)
[2024-01-17] MEDS ORDERED: Lorazepam 1 MG TAB PO PRN (03:53)
[2024-01-17 06:04] LABS: #Basophils 0.04 10x3/uL (0.0-0.2); %Basophils 1.2 % (0.0-1.0); %Eosinophils 2.4 % (0.0-10.0); %Monocytes 10.5 % (0.0-10.0); %Neutrophils 58.6 % (42.0-75.0); Hematocrit 37.3 % (42.0-52.0); Hemoglobin 12.5 g/dL (14.0-18.0); Mean Corpuscular HGB CONC 33.5 g/dL (32.0-36.0); Mean Corpuscular Hemoglobin 29.4 pg (27.0-31.0); Mean Corpuscular Volume 87.8 fL (78.0-98.0); Mean Platelet Volume 9.7 fL (7.4-10.4); Platelet Count 134 10x3/uL (130-400); RBC Distribution Width 13.7 % (11.5-14.5); Red Blood Cell (RBC) Count 4.25 mill/uL (4.70-6.10)
[2024-01-17 06:18] LABS: INR-International Normal Ratio 1.2; PTT 31.9 sec (22.9-36.1); Prothrombin Time 15.1 sec (12.0-14.7)
[2024-01-17 06:28] LABS: ALT (SGPT) 172 U/L (8-55); AST (SGOT) 191 U/L (5-34); Albumin 3.5 g/dL (3.5-5.0); Alkaline Phosphatase 84 U/L (40-110); Anion Gap 17 mmol/L (10-20); BUN (Urea Nitrogen) 6 mg/dL (8.9-20.6); Bilirubin, Total 2.3 mg/dL (0.2-1.2); Calc. Creatinine Clearance 167 mL/min (70-130); Calcium 8.8 mg/dL (7.8-10.44); Carbon Dioxide 22 mmol/L (22-29); Chloride 100 mmol/L (98-107); Estimated GFR 125; Glucose 76 mg/dL (70-105); Potassium 3.9 mmol/L (3.5-5.1); Protein, Total 6.9 g/dL (6.0-8.3); Sodium 135 mmol/L (136-145)
[2024-01-17 09:26] LABS: Magnesium 1.7 mg/dL (1.6-2.6)
[2024-01-17] MEDS ORDERED: Midazolam HCl 2 mg/2 ml Vial ONE (09:33)
[2024-01-17] MEDS ORDERED: PROPOFOL 20 ML ONE (09:33)
[2024-01-17] MEDS ORDERED: Ketamine In 0.9 % NaCl 50 MG/5 ML SYRINGE ONE (09:33)
[2024-01-17] MEDS: Magnesium 2 GM/50 ML(in water) 2 GM in Premix 1 BAG IVPB SCH (10:47)
[2024-01-17] MEDS: Diazepam 5 MG TAB PO SCH (11:29)
[2024-01-17] MEDS: Lactated Ringer's 1,000 ML IV SCH (12:48)
[2024-01-17] MEDS: Ondansetron ODT 4 MG TAB PO PRN (14:28)
[2024-01-17] MEDS: Acetaminophen 325 MG TAB PO PRN (14:28)
[2024-01-18] MEDS ORDERED: Lorazepam 1 MG TAB PO PRN (03:53)
[2024-01-18] MEDS: Lorazepam 0.5 MG TAB PO SCH (04:08)
[2024-01-18 04:42] LABS: ALT (SGPT) 241 U/L (8-55); AST (SGOT) 380 U/L (5-34); Albumin 3.4 g/dL (3.5-5.0); Alkaline Phosphatase 82 U/L (40-110); Bilirubin, Direct 0.9 mg/dL (0.1-0.3); Bilirubin, Total 2.3 mg/dL (0.2-1.2); Magnesium 1.7 mg/dL (1.6-2.6); Protein, Total 6.9 g/dL (6.0-8.3)
[2024-01-18] MEDS: Magnesium 2 GM/50 ML(in water) 2 GM in Premix 1 BAG IVPB SCH (08:21)
[2024-01-18 08:55] VITALS: BP 130/88; TEMP 97.5
[2024-01-18] MEDS ORDERED: Pantoprazole DR 40 MG TAB PO SCH (21:00)
[2024-01-19] MEDS ORDERED: Lorazepam 0.5 MG TAB PO PRN (03:53)
[2024-01-19] MEDS ORDERED: Thiamine 100 MG TAB PO SCH (06:00)
== END 2024-01-18 14:40 | disposition home or self-care (01) | DRG 896 ==
LOC: ERS 00:33 → ERHOLD 03:08 → 2SW 05:40 → T4-B 01-17 18:06
PROVIDERS: ADMIT Student in an Organized Health Care Education/Training Program; ATTEND Internal Medicine
PROC: 0DB78ZX Excision of Stomach, Pylorus, Via Natural or Artificial Opening Endoscopic, Diagnostic (ICD-10-PCS; principal; 2024-01-17)
DX: F10.139 Alcohol abuse with withdrawal, unspecified (principal); K22.11 Ulcer of esophagus with bleeding; R44.3 Hallucinations, unspecified; E87.20 Acidosis, unspecified; K70.10 Alcoholic hepatitis without ascites; I10 Essential (primary) hypertension; F10.10 Alcohol abuse, uncomplicated; G40.909 Epilepsy, unspecified, not intractable, without status epilepticus; E83.42 Hypomagnesemia; R25.1 Tremor, unspecified; D64.9 Anemia, unspecified; F17.200 Nicotine dependence, unspecified, uncomplicated; F12.90 Cannabis use, unspecified, uncomplicated; Y90.6 Blood alcohol level of 120-199 mg/100 ml; Z88.8 Allergy status to other drugs, medicaments and biological substances; Z91.018 Allergy to other foods; Z79.899 Other long term (current) drug therapy; Z98.890 Other specified postprocedural states
CPT/HCPCS: 36415; 71045; 80048; 80053; 80076; 80306; 80307; 82247; 82550; 82805; 83605; 83690; 83735; 84100; 84443; 84484; 85025; 85610; 85730; 88305; 93005; 96374; 96375; 96376; C9113; J1953; J2060; J2250; J2405; J2704; J3411; J3475; J3490; J7050; J7120; Q0162; S0028

== ENCOUNTER 2024-05-23 05:56 | Inpatient (IN) | payer OTHER ==
[2024-05-23 06:32] LABS: #Basophils 0.06 10x3/uL (0.0-0.2); %Basophils 1.1 % (0.0-1.0); %Eosinophils 0.7 % (0.0-10.0); %Lymphocytes 24.1 % (21.0-51.0); %Monocytes 6.3 % (0.0-10.0); %Neutrophils 67.6 % (42.0-75.0); Hematocrit 40.8 % (42.0-52.0); Hemoglobin 13.8 g/dL (14.0-18.0); Mean Corpuscular HGB CONC 33.8 g/dL (32.0-36.0); Mean Corpuscular Hemoglobin 27.2 pg (27.0-31.0); Mean Corpuscular Volume 80.5 fL (78.0-98.0); Mean Platelet Volume 8.9 fL (7.4-10.4); Platelet Count 179 10x3/uL (130-400); RBC Distribution Width 15.4 % (11.5-14.5); Red Blood Cell (RBC) Count 5.07 mill/uL (4.70-6.10)
[2024-05-23] MEDS ORDERED: Lorazepam 2 MG/ML VIAL ONE ×2 (06:39→07:12)
[2024-05-23 06:49] LABS: Acetaminophen Less than 10 mcg/mL (Less than 10); Alcohol Less than 10.0 mg/dL (Less than 10); Salicylate Less than 8.0 mg/dL (Less than 8.0)
[2024-05-23 06:51] LABS: ALT (SGPT) 117 U/L (8-55); AST (SGOT) 124 U/L (5-34); Alkaline Phosphatase 128 U/L (40-110); Anion Gap 20 mmol/L (10-20); BUN (Urea Nitrogen) 7 mg/dL (8.9-20.6); Calc. Creatinine Clearance 0 mL/min (70-130); Calcium 8.9 mg/dL (7.8-10.44); Carbon Dioxide 24 mmol/L (22-29); Chloride 99 mmol/L (98-107); Estimated GFR 123; Globulin 4.5 g/dL (2.4-3.5); Glucose 98 mg/dL (70-105); Potassium 3.5 mmol/L (3.5-5.1); Protein, Total 8.5 g/dL (6.0-8.3); Sodium 139 mmol/L (136-145)
[2024-05-23 06:55] LABS: Troponin I 0.017 ng/mL (< 0.028)
[2024-05-23] MEDS ORDERED: Thiamine HCl 200 MG/2 ML VIAL ONE (07:34)
[2024-05-23] MEDS ORDERED: Folic Acid 1 MG TAB ONE (07:34)
[2024-05-23] MEDS ORDERED: Ondansetron PF 4 MG/2 ML Vial ONE (08:10)
[2024-05-23] MEDS ORDERED: Ketorolac Tromethamine 30 MG (1 mL) VIAL ONE (08:10)
[2024-05-23] MEDS ORDERED: Lorazepam 2 MG/ML VIAL IM PRN (09:14)
[2024-05-23] MEDS ORDERED: Electrolyte Replacement Protocol 1 EACH FS SCH (09:15)
[2024-05-23 09:39] LABS: Troponin I 0.034 ng/mL (< 0.028)
[2024-05-23 09:43] VITALS: BMI 29.4
[2024-05-23] MEDS ORDERED: Electrolyte Replacement Protocol FS PRN (09:45)
[2024-05-23] MEDS: Folic Acid 1 MG in Admixture Fee 1 EACH IVP SCH (09:48)
[2024-05-23] MEDS: Lorazepam 1 MG TAB PO SCH (10:38)
[2024-05-23] MEDS: Potassium Chloride 20 MEQ TAB PO SCH (10:38)
[2024-05-23] MEDS: levETIRAcetam 500 MG (5 mL) VIAL SLOW IVP SCH ×2 (10:38→20:55)
[2024-05-23] MEDS: Multivit, Therapeutic 1 TAB PO SCH (10:39)
[2024-05-23] MEDS: Sodium Chloride 0.9% 1,000 ML IV SCH (10:39)
[2024-05-23 12:20] LABS: Troponin I Less than 0.010 ng/mL (< 0.028)
[2024-05-23] MEDS: Ondansetron PF 4 MG/2 ML Vial IVP PRN (15:24)
[2024-05-23] MEDS: Famotidine/PF 20 mg/2ml Vial SLOW IVP SCH (20:54)
[2024-05-24 04:49] LABS: #Basophils 0.03 10x3/uL (0.0-0.2); %Basophils 0.8 % (0.0-1.0); %Eosinophils 3.5 % (0.0-10.0); %Lymphocytes 21.9 % (21.0-51.0); %Monocytes 5.7 % (0.0-10.0); %Neutrophils 67.8 % (42.0-75.0); Hemoglobin 11.7 g/dL (14.0-18.0); Mean Corpuscular HGB CONC 32.5 g/dL (32.0-36.0); Mean Corpuscular Hemoglobin 27.5 pg (27.0-31.0); Mean Corpuscular Volume 84.7 fL (78.0-98.0); Mean Platelet Volume 9.9 fL (7.4-10.4); Platelet Count 135 10x3/uL (130-400); Red Blood Cell (RBC) Count 4.25 mill/uL (4.70-6.10)
[2024-05-24 04:56] LABS: Phosphorus 3.3 mg/dL (2.3-4.7)
[2024-05-24 04:59] LABS: ALT (SGPT) 87 U/L (8-55); AST (SGOT) 132 U/L (5-34); Albumin 3.2 g/dL (3.5-5.0); Alkaline Phosphatase 102 U/L (40-110); Anion Gap 14 mmol/L (10-20); BUN (Urea Nitrogen) 9 mg/dL (8.9-20.6); Bilirubin, Total 1.9 mg/dL (0.2-1.2); Calc. Creatinine Clearance 167 mL/min (70-130); Calcium 7.7 mg/dL (7.8-10.44); Carbon Dioxide 20 mmol/L (22-29); Chloride 107 mmol/L (98-107); Estimated GFR 123; Globulin 3.6 g/dL (2.4-3.5); Glucose 80 mg/dL (70-105); Magnesium 1.2 mg/dL (1.6-2.6); Potassium 3.8 mmol/L (3.5-5.1); Protein, Total 6.8 g/dL (6.0-8.3); Sodium 137 mmol/L (136-145)
[2024-05-24] MEDS: Magnesium Sulfate In Water 4 GM in Premix 1 BAG IVPB SCH (09:09)
[2024-05-24] MEDS: Folic Acid 1 MG TAB PO SCH (09:11)
[2024-05-24] MEDS: Gabapentin 300 MG CAP PO SCH (09:11)
[2024-05-24] MEDS: Thiamine HCl 200 MG/2 ML VIAL SLOW IVP SCH (09:12)
[2024-05-24] MEDS: Multivit, Therapeutic 1 TAB PO SCH (09:12)
[2024-05-24] MEDS: Lorazepam 1 MG TAB PO PRN (09:13)
[2024-05-24] MEDS: Amlodipine 5 MG TAB PO SCH (09:13)
[2024-05-24] MEDS ORDERED: Lorazepam 1 MG TAB PO PRN (09:14)
[2024-05-24 12:23] LABS: Magnesium 2.7 mg/dL (1.6-2.6)
[2024-05-25 04:02] LABS: #Basophils 0.04 10x3/uL (0.0-0.2); %Basophils 0.8 % (0.0-1.0); %Eosinophils 3.5 % (0.0-10.0); %Lymphocytes 17.5 % (21.0-51.0); %Monocytes 6.5 % (0.0-10.0); %Neutrophils 71.5 % (42.0-75.0); Hematocrit 39.3 % (42.0-52.0); Mean Corpuscular HGB CONC 33.1 g/dL (32.0-36.0); Mean Corpuscular Hemoglobin 26.6 pg (27.0-31.0); Mean Corpuscular Volume 80.4 fL (78.0-98.0); Platelet Count 124 10x3/uL (130-400); RBC Distribution Width 14.6 % (11.5-14.5); Red Blood Cell (RBC) Count 4.89 mill/uL (4.70-6.10)
[2024-05-25 04:22] LABS: ALT (SGPT) 124 U/L (8-55); AST (SGOT) 238 U/L (5-34); Albumin 3.4 g/dL (3.5-5.0); Alkaline Phosphatase 113 U/L (40-110); Anion Gap 14 mmol/L (10-20); BUN (Urea Nitrogen) 6 mg/dL (8.9-20.6); Bilirubin, Total 1.3 mg/dL (0.2-1.2); Calc. Creatinine Clearance 163 mL/min (70-130); Calcium 8.3 mg/dL (7.8-10.44); Carbon Dioxide 23 mmol/L (22-29); Chloride 102 mmol/L (98-107); Estimated GFR 122; Glucose 96 mg/dL (70-105); Potassium 3.8 mmol/L (3.5-5.1); Protein, Total 7.4 g/dL (6.0-8.3); Sodium 135 mmol/L (136-145)
[2024-05-25] MEDS: Magnesium 2 GM/50 ML(in water) 2 GM in Premix 1 BAG IVPB SCH (09:35)
[2024-05-25] MEDS: Lorazepam 0.5 MG TAB PO SCH (09:36)
[2024-05-25] MEDS: FLU (Fluarix Triv) TS24-25(6MOS UP)/PF 45 MCG/0.5 ML Syringe IM ONE (13:19)
[2024-05-25] MEDS: Acetaminophen 325 MG TAB PO PRN (20:52)
[2024-05-26] MEDS: Lorazepam 1 MG TAB PO PRN (03:41)
[2024-05-26 04:22] LABS: #Basophils 0.05 10x3/uL (0.0-0.2); %Eosinophils 3.9 % (0.0-10.0); %Lymphocytes 22.7 % (21.0-51.0); Hematocrit 39.2 % (42.0-52.0); Hemoglobin 12.8 g/dL (14.0-18.0); Mean Corpuscular HGB CONC 32.7 g/dL (32.0-36.0); Mean Corpuscular Hemoglobin 27.2 pg (27.0-31.0); Mean Corpuscular Volume 83.4 fL (78.0-98.0); Mean Platelet Volume 10.2 fL (7.4-10.4); Platelet Count 126 10x3/uL (130-400); RBC Distribution Width 14.6 % (11.5-14.5)
[2024-05-26 04:55] LABS: ALT (SGPT) 130 U/L (8-55); AST (SGOT) 221 U/L (5-34); Albumin 3.4 g/dL (3.5-5.0); Alkaline Phosphatase 105 U/L (40-110); Anion Gap 12 mmol/L (10-20); BUN (Urea Nitrogen) 5 mg/dL (8.9-20.6); Calc. Creatinine Clearance 191 mL/min (70-130); Calcium 8.6 mg/dL (7.8-10.44); Carbon Dioxide 20 mmol/L (22-29); Chloride 106 mmol/L (98-107); Estimated GFR 128; Globulin 3.9 g/dL (2.4-3.5); Glucose 92 mg/dL (70-105); Potassium 3.5 mmol/L (3.5-5.1); Protein, Total 7.3 g/dL (6.0-8.3); Sodium 134 mmol/L (136-145)
[2024-05-26 06:07] LABS: Magnesium 2.1 mg/dL (1.6-2.6)
[2024-05-26] MEDS: Potassium Chloride 20 MEQ TAB PO SCH ×2 (09:33→21:31)
[2024-05-26] MEDS: Thiamine 100 MG TAB PO SCH (09:34)
[2024-05-26] MEDS: Lorazepam 0.5 MG TAB PO PRN (09:43)
[2024-05-26 14:38] LABS: Potassium 3.5 mmol/L (3.5-5.1)
[2024-05-27 05:05] VITALS: TEMP 98.3
[2024-05-27 10:21] VITALS: BP 118/85
== END 2024-05-27 11:25 | disposition home or self-care (01) | DRG 897 ==
LOC: ERS 05:56 → 2NO 09:19
PROVIDERS: ADMIT Internal Medicine; ATTEND Family Medicine
DX: F10.239 Alcohol dependence with withdrawal, unspecified (principal); G40.509 Epileptic seizures related to external causes, not intractable, without status epilepticus; I10 Essential (primary) hypertension; K76.0 Fatty (change of) liver, not elsewhere classified; K21.9 Gastro-esophageal reflux disease without esophagitis; F43.10 Post-traumatic stress disorder, unspecified; Z88.8 Allergy status to other drugs, medicaments and biological substances; Z98.890 Other specified postprocedural states; Z82.49 Family history of ischemic heart disease and other diseases of the circulatory system
CPT/HCPCS: 36415; 70450; 71045; 76705; 80053; 80307; 82550; 83735; 84100; 84443; 84484; 85025; 93005; 94760; 96374; 96375; 96376; J1885; J1953; J2060; J2405; J3411; J3475; J3490; J7030

== ENCOUNTER 2024-06-07 15:37 | Inpatient (IN) | payer OTHER ==
[2024-06-07] MEDS ORDERED: Ondansetron PF 4 MG/2 ML Vial ONE (15:49)
[2024-06-07] MEDS ORDERED: Thiamine HCl 200 MG/2 ML VIAL ONE (15:49)
[2024-06-07] MEDS ORDERED: Lorazepam 2 MG/ML VIAL ONE (15:50)
[2024-06-07 16:12] LABS: #Basophils 0.07 10x3/uL (0.0-0.2); #Eosinophils Less than 0.03 10x3/uL (0.0-0.7); %Basophils 0.8 % (0.0-1.0); %Eosinophils 0.1 % (0.0-10.0); %Lymphocytes 15.9 % (21.0-51.0); %Monocytes 4.5 % (0.0-10.0); %Neutrophils 78.5 % (42.0-75.0); Hemoglobin 14.5 g/dL (14.0-18.0); Mean Corpuscular HGB CONC 33.7 g/dL (32.0-36.0); Mean Corpuscular Hemoglobin 26.8 pg (27.0-31.0); Mean Corpuscular Volume 79.3 fL (78.0-98.0); Mean Platelet Volume 8.6 fL (7.4-10.4); Platelet Count 153 10x3/uL (130-400); RBC Distribution Width 15.9 % (11.5-14.5); Red Blood Cell (RBC) Count 5.42 mill/uL (4.70-6.10)
[2024-06-07 16:43] LABS: Troponin I Less than 0.010 ng/mL (< 0.028)
[2024-06-07] MEDS ORDERED: Diazepam 10 MG/2 ML SYRINGE ONE ×4 (16:44→19:48)
[2024-06-07 16:52] LABS: Lipase 28 U/L (8-78)
[2024-06-07 16:55] LABS: Acetaminophen Less than 10 mcg/mL (Less than 10); Alcohol 124.8 mg/dL (Less than 10); Salicylate Less than 8.0 mg/dL (Less than 8.0)
[2024-06-07 16:58] LABS: ALT (SGPT) 140 U/L (8-55); AST (SGOT) 190 U/L (5-34); Alkaline Phosphatase 139 U/L (40-110); Anion Gap 22 mmol/L (10-20); BUN (Urea Nitrogen) 8 mg/dL (8.9-20.6); Bilirubin, Total 1.4 mg/dL (0.2-1.2); Calc. Creatinine Clearance 0 mL/min (70-130); Calcium 8.8 mg/dL (7.8-10.44); Carbon Dioxide 25 mmol/L (22-29); Chloride 97 mmol/L (98-107); Estimated GFR 112; Globulin 4.8 g/dL (2.4-3.5); Glucose 121 mg/dL (70-105); Potassium 3.3 mmol/L (3.5-5.1); Protein, Total 8.8 g/dL (6.0-8.3); Sodium 141 mmol/L (136-145)
[2024-06-07] MEDS ORDERED: Potassium Chloride 20 MEQ TAB ONE (17:40)
[2024-06-07 17:43] LABS: Magnesium 1.4 mg/dL (1.6-2.6)
[2024-06-07] MEDS ORDERED: Magnesium 2 GM/50 ML BAG (IN WATER) ONE (18:22)
[2024-06-07] MEDS ORDERED: chlordiazePOXIDE HCl 25 MG CAP ONE (18:43)
[2024-06-07] MEDS ORDERED: levETIRAcetam 500 MG (5 mL) VIAL ONE (21:21)
[2024-06-07] MEDS ORDERED: Electrolyte Replacement Protocol FS SCH (21:30)
[2024-06-07] MEDS ORDERED: Potassium Chloride 20 MEQ (100 mL) BAG ONE (21:51)
[2024-06-07 22:59] LABS: #Basophils 0.04 10x3/uL (0.0-0.2); %Basophils 0.5 % (0.0-1.0); %Eosinophils 0.5 % (0.0-10.0); %Lymphocytes 22.4 % (21.0-51.0); %Monocytes 5.3 % (0.0-10.0); Hematocrit 41.6 % (42.0-52.0); Hemoglobin 13.6 g/dL (14.0-18.0); Mean Corpuscular HGB CONC 32.7 g/dL (32.0-36.0); Mean Corpuscular Hemoglobin 26.9 pg (27.0-31.0); Mean Corpuscular Volume 82.2 fL (78.0-98.0); Mean Platelet Volume 9.2 fL (7.4-10.4); Platelet Count 134 10x3/uL (130-400); Red Blood Cell (RBC) Count 5.06 mill/uL (4.70-6.10)
[2024-06-07 23:09] VITALS: BMI 29.0
[2024-06-07] MEDS: Thiamine HCl 200 MG/2 ML VIAL SLOW IVP SCH (23:24)
[2024-06-07] MEDS: Lorazepam 2 MG/ML VIAL IM PRN (23:38)
[2024-06-07] MEDS: Pantoprazole 40 MG VIAL IVP SCH (23:38)
[2024-06-07] MEDS: Lorazepam 1 MG TAB PO SCH (23:49)
[2024-06-07] MEDS: Ondansetron PF 4 MG/2 ML Vial IVP PRN (23:56)
[2024-06-08 00:28] LABS: Bacteria/HPF None Seen HPF (None Seen); Bilirubin Negative (Negative); Blood, Urine Trace (Negative); CAUTI Indications for Culture Dysuria,urgency,freq; Clarity Clear (Clear); Glucose, Urine (Dipstick) Normal (Negative); Ketone, Urine 20 mg/dL (Negative); Leukocyte Negative Leu/uL (Negative); Nitrite Negative (Negative); Protein, Urine (Dipstick) 100 mg/dL (Neg-Trace); Specific Gravity, Urine 1.026 (1.002-1.036); Squamous Epithelial None Seen HPF (0-3); WBC/HPF 0-3 HPF (0-3); pH, Urine 8.5 (5.0-9.0)
[2024-06-08 00:30] LABS: Urine Culture Reflex No No
[2024-06-08 03:32] LABS: #Basophils 0.04 10x3/uL (0.0-0.2); %Basophils 0.7 % (0.0-1.0); %Lymphocytes 30.7 % (21.0-51.0); %Monocytes 6.1 % (0.0-10.0); %Neutrophils 61.2 % (42.0-75.0); Hematocrit 36.6 % (42.0-52.0); Hemoglobin 12.1 g/dL (14.0-18.0); Mean Corpuscular HGB CONC 33.1 g/dL (32.0-36.0); Mean Corpuscular Hemoglobin 26.5 pg (27.0-31.0); Mean Corpuscular Volume 80.3 fL (78.0-98.0); Mean Platelet Volume 10.1 fL (7.4-10.4); Platelet Count 114 10x3/uL (130-400); RBC Distribution Width 15.9 % (11.5-14.5); Red Blood Cell (RBC) Count 4.56 mill/uL (4.70-6.10)
[2024-06-08 03:40] LABS: INR-International Normal Ratio 1.2
[2024-06-08 04:14] LABS: ALT (SGPT) 103 U/L (8-55); AST (SGOT) 147 U/L (5-34); Albumin 3.4 g/dL (3.5-5.0); Alkaline Phosphatase 112 U/L (40-110); Anion Gap 16 mmol/L (10-20); BUN (Urea Nitrogen) 8 mg/dL (8.9-20.6); Bilirubin, Total 2.4 mg/dL (0.2-1.2); Calc. Creatinine Clearance 155 mL/min (70-130); Calcium 8.3 mg/dL (7.8-10.44); Carbon Dioxide 24 mmol/L (22-29); Chloride 101 mmol/L (98-107); Estimated GFR 121; Globulin 3.8 g/dL (2.4-3.5); Glucose 84 mg/dL (70-105); Magnesium 1.8 mg/dL (1.6-2.6); Phosphorus 2.8 mg/dL (2.3-4.7); Potassium 3.4 mmol/L (3.5-5.1); Protein, Total 7.2 g/dL (6.0-8.3); Sodium 138 mmol/L (136-145)
[2024-06-08] MEDS: Potassium Chloride 20 MEQ TAB PO SCH (09:02)
[2024-06-08] MEDS: Gabapentin 300 MG CAP PO SCH (09:02)
[2024-06-08] MEDS: Amlodipine 5 MG TAB PO SCH (09:02)
[2024-06-08] MEDS: Multivit, Therapeutic 1 TAB PO SCH (09:02)
[2024-06-08] MEDS: levETIRAcetam 500 MG TAB PO SCH (09:03)
[2024-06-08] MEDS: Folic Acid 1 MG TAB PO SCH (09:03)
[2024-06-08] MEDS: Magnesium 2 GM/50 ML(in water) 2 GM in Premix 1 BAG IVPB SCH (09:03)
[2024-06-08] MEDS: Pantoprazole 40 MG VIAL IVP SCH (09:04)
[2024-06-08] MEDS: FLU (Fluarix Triv) TS24-25(6MOS UP)/PF 45 MCG/0.5 ML Syringe IM ONE (09:30)
[2024-06-08] MEDS: Lorazepam 1 MG TAB PO PRN (20:33)
[2024-06-09] MEDS: Lorazepam 1 MG TAB PO PRN ×2 (00:49→21:56)
[2024-06-09 05:09] LABS: ALT (SGPT) 145 U/L (8-55); AST (SGOT) 311 U/L (5-34); Albumin 3.2 g/dL (3.5-5.0); Alkaline Phosphatase 105 U/L (40-110); Anion Gap 15 mmol/L (10-20); BUN (Urea Nitrogen) 7 mg/dL (8.9-20.6); Bilirubin, Total 2.7 mg/dL (0.2-1.2); Calc. Creatinine Clearance 158 mL/min (70-130); Calcium 8.6 mg/dL (7.8-10.44); Carbon Dioxide 22 mmol/L (22-29); Chloride 100 mmol/L (98-107); Estimated GFR 121; Globulin 3.6 g/dL (2.4-3.5); Glucose 91 mg/dL (70-105); Magnesium 1.9 mg/dL (1.6-2.6); Potassium 3.3 mmol/L (3.5-5.1); Protein, Total 6.8 g/dL (6.0-8.3); Sodium 134 mmol/L (136-145)
[2024-06-09 05:30] LABS: #Basophils 0.03 10x3/uL (0.0-0.2); %Basophils 0.7 % (0.0-1.0); %Eosinophils 3.3 % (0.0-10.0); %Lymphocytes 28.1 % (21.0-51.0); %Monocytes 5.1 % (0.0-10.0); %Neutrophils 62.4 % (42.0-75.0); Hematocrit 34.1 % (42.0-52.0); Hemoglobin 11.3 g/dL (14.0-18.0); Mean Corpuscular HGB CONC 33.1 g/dL (32.0-36.0); Mean Corpuscular Hemoglobin 26.7 pg (27.0-31.0); Mean Corpuscular Volume 80.6 fL (78.0-98.0); Mean Platelet Volume 10.7 fL (7.4-10.4); Platelet Count 85 10x3/uL (130-400); RBC Distribution Width 15.3 % (11.5-14.5); Red Blood Cell (RBC) Count 4.23 mill/uL (4.70-6.10)
[2024-06-09] MEDS: Magnesium 2 GM/50 ML(in water) 2 GM in Premix 1 BAG IVPB SCH (08:52)
[2024-06-09] MEDS: Potassium Chloride 20 MEQ TAB PO SCH (08:53)
[2024-06-09] MEDS ORDERED: Lorazepam 0.5 MG TAB PO SCH (23:00)
[2024-06-10 04:15] LABS: #Basophils 0.03 10x3/uL (0.0-0.2); %Basophils 0.8 % (0.0-1.0); %Eosinophils 4.7 % (0.0-10.0); %Lymphocytes 33.8 % (21.0-51.0); %Monocytes 4.7 % (0.0-10.0); %Neutrophils 55.7 % (42.0-75.0); Hematocrit 37.1 % (42.0-52.0); Hemoglobin 11.7 g/dL (14.0-18.0); Mean Corpuscular HGB CONC 31.5 g/dL (32.0-36.0); Mean Corpuscular Hemoglobin 27.1 pg (27.0-31.0); Mean Corpuscular Volume 85.9 fL (78.0-98.0); Mean Platelet Volume 11.6 fL (7.4-10.4); Platelet Count 57 10x3/uL (130-400); RBC Distribution Width 15.2 % (11.5-14.5); Red Blood Cell (RBC) Count 4.32 mill/uL (4.70-6.10)
[2024-06-10 04:54] LABS: ALT (SGPT) 186 U/L (8-55); AST (SGOT) 341 U/L (5-34); Albumin 3.2 g/dL (3.5-5.0); Alkaline Phosphatase 108 U/L (40-110); Anion Gap 14 mmol/L (10-20); BUN (Urea Nitrogen) 7 mg/dL (8.9-20.6); Bilirubin, Total 1.4 mg/dL (0.2-1.2); Calc. Creatinine Clearance 164 mL/min (70-130); Calcium 8.4 mg/dL (7.8-10.44); Carbon Dioxide 20 mmol/L (22-29); Chloride 103 mmol/L (98-107); Estimated GFR 123; Glucose 99 mg/dL (70-105); Potassium 3.8 mmol/L (3.5-5.1); Protein, Total 7.2 g/dL (6.0-8.3); Sodium 133 mmol/L (136-145)
[2024-06-10] MEDS: Magnesium 2 GM/50 ML(in water) 2 GM in Premix 1 BAG IVPB SCH (08:09)
[2024-06-10] MEDS: Lorazepam 0.5 MG TAB PO PRN (20:48)
[2024-06-10] MEDS: Acetaminophen 500 MG TAB PO PRN (23:32)
[2024-06-10] MEDS: Thiamine 100 MG TAB PO SCH (23:32)
[2024-06-11 08:44] VITALS: BP 111/69; TEMP 98
[2024-06-11] MEDS: Pantoprazole DR 40 MG TAB PO SCH (08:58)
== END 2024-06-11 14:48 | disposition home or self-care (01) | DRG 897 ==
LOC: ERS 15:37 → IMCU/EMU 21:16 → 2NO 06-09 00:14 → MSONC 06-10 13:09
PROVIDERS: ADMIT Internal Medicine; ATTEND Internal Medicine
DX: F10.239 Alcohol dependence with withdrawal, unspecified (principal); E83.42 Hypomagnesemia; E87.6 Hypokalemia; R56.9 Unspecified convulsions; K29.20 Alcoholic gastritis without bleeding; Z79.899 Other long term (current) drug therapy; F41.9 Anxiety disorder, unspecified; F32.A Depression, unspecified; Z98.890 Other specified postprocedural states; I10 Essential (primary) hypertension; K70.10 Alcoholic hepatitis without ascites
CPT/HCPCS: 36415; 71045; 76705; 80053; 80177; 80307; 81001; 82274; 83605; 83690; 83735; 84100; 84484; 85025; 85610; 85730; 93005; 96374; 96375; 96376; J1953; J2060; J2405; J2470; J3360; J3411; J3475; J3480

== ENCOUNTER 2024-06-17 08:08 | Inpatient (IN) | payer OTHER ==
[2024-06-17] MEDS ORDERED: Lorazepam 2 MG/ML VIAL ONE (08:54)
[2024-06-17] MEDS ORDERED: Thiamine HCl 200 MG/2 ML VIAL ONE (09:01)
[2024-06-17] MEDS ORDERED: Ondansetron PF 4 MG/2 ML Vial ONE (09:09)
[2024-06-17 09:27] LABS: #Basophils 0.05 10x3/uL (0.0-0.2); %Basophils 1.1 % (0.0-1.0); %Eosinophils 1.3 % (0.0-10.0); %Lymphocytes 48.7 % (21.0-51.0); %Neutrophils 37.7 % (42.0-75.0); Hematocrit 40.6 % (42.0-52.0); Hemoglobin 13.2 g/dL (14.0-18.0); Mean Corpuscular HGB CONC 32.5 g/dL (32.0-36.0); Mean Corpuscular Hemoglobin 26.7 pg (27.0-31.0); Mean Platelet Volume 9.2 fL (7.4-10.4); Platelet Count 171 10x3/uL (130-400); RBC Distribution Width 17.2 % (11.5-14.5); Red Blood Cell (RBC) Count 4.95 mill/uL (4.70-6.10)
[2024-06-17 09:37] LABS: Acetaminophen Less than 10 mcg/mL (Less than 10); Alcohol 484.1 mg/dL (Less than 10); Lipase 118 U/L (8-78); Magnesium 1.9 mg/dL (1.6-2.6); Salicylate Less than 8.0 mg/dL (Less than 8.0)
[2024-06-17 09:42] LABS: ALT (SGPT) 159 U/L (8-55); AST (SGOT) 139 U/L (5-34); Albumin Less than 0.4 g/dL (3.5-5.0); Alkaline Phosphatase 120 U/L (40-110); Anion Gap 19 mmol/L (10-20); BUN (Urea Nitrogen) 4 mg/dL (8.9-20.6); Bilirubin, Total 0.6 mg/dL (0.2-1.2); Calc. Creatinine Clearance 0 mL/min (70-130); Calcium 8.2 mg/dL (7.8-10.44); Carbon Dioxide 24 mmol/L (22-29); Chloride 107 mmol/L (98-107); Estimated GFR 119; Glucose 121 mg/dL (70-105); Potassium 3.3 mmol/L (3.5-5.1); Protein, Total 7.8 g/dL (6.0-8.3); Sodium 147 mmol/L (136-145)
[2024-06-17] MEDS ORDERED: Folic Acid 1 MG TAB ONE (09:45)
[2024-06-17] MEDS ORDERED: Ondansetron ODT 4 MG TAB PO PRN (12:24)
[2024-06-17] MEDS ORDERED: Acetaminophen 325 MG TAB PO PRN (12:24)
[2024-06-17] MEDS ORDERED: Lorazepam 2 MG/ML VIAL IM PRN (12:24)
[2024-06-17] MEDS ORDERED: Electrolyte Replacement Protocol 1 EACH FS SCH (12:30)
[2024-06-17] MEDS ORDERED: Electrolyte Replacement Protocol FS PRN (12:45)
[2024-06-17] MEDS: Thiamine HCl 200 MG/2 ML VIAL SLOW IVP SCH ×2 (16:42→16:43)
[2024-06-17] MEDS: PHENobarbital Sodium 65 MG/ML VIAL SLOW IVP SCH (16:42)
[2024-06-17] MEDS: Lorazepam 2 MG/ML VIAL SLOW IVP SCH (16:42)
[2024-06-17] MEDS: Lorazepam 1 MG TAB PO SCH (16:43)
[2024-06-17] MEDS: Folic Acid 1 MG TAB PO SCH (16:43)
[2024-06-17] MEDS: Lactated Ringer's 1,000 ML IV SCH (16:48)
[2024-06-17] MEDS: Magnesium 2 GM/50 ML(in water) 2 GM in Premix 1 BAG IVPB SCH (16:51)
[2024-06-17] MEDS: Potassium Chloride 20 MEQ in Premix 1 BAG IVPB SCH (17:07)
[2024-06-17] MEDS: Lorazepam 1 MG TAB PO PRN (20:37)
[2024-06-17] MEDS: levETIRAcetam 500 MG TAB PO SCH (21:26)
[2024-06-17] MEDS: Potassium Chloride 20 MEQ TAB PO SCH (23:23)
[2024-06-18 05:17] LABS: #Basophils 0.05 10x3/uL (0.0-0.2); %Basophils 1.7 % (0.0-1.0); %Eosinophils 1.7 % (0.0-10.0); %Lymphocytes 38.2 % (21.0-51.0); %Monocytes 10.3 % (0.0-10.0); %Neutrophils 47.8 % (42.0-75.0); Hematocrit 36.3 % (42.0-52.0); Hemoglobin 11.6 g/dL (14.0-18.0); Mean Corpuscular Hemoglobin 26.7 pg (27.0-31.0); Mean Corpuscular Volume 83.6 fL (78.0-98.0); Mean Platelet Volume 9.1 fL (7.4-10.4); Platelet Count 125 10x3/uL (130-400); RBC Distribution Width 16.5 % (11.5-14.5); Red Blood Cell (RBC) Count 4.34 mill/uL (4.70-6.10)
[2024-06-18 05:29] LABS: Anion Gap 15 mmol/L (10-20); BUN (Urea Nitrogen) 5 mg/dL (8.9-20.6); Calc. Creatinine Clearance 160 mL/min (70-130); Calcium 8.3 mg/dL (7.8-10.44); Carbon Dioxide 23 mmol/L (22-29); Chloride 105 mmol/L (98-107); Estimated GFR 121; Glucose 102 mg/dL (70-105); Potassium 3.6 mmol/L (3.5-5.1); Sodium 139 mmol/L (136-145)
[2024-06-18] MEDS ORDERED: Enoxaparin 40 MG (0.4 mL) SYRINGE SC SCH (09:00)
[2024-06-18] MEDS: Folic Acid 1 MG TAB PO SCH (09:50)
[2024-06-18] MEDS: Multivit, Therapeutic 1 TAB PO SCH (09:50)
[2024-06-18] MEDS ORDERED: Lorazepam 1 MG TAB PO PRN (12:25)
[2024-06-19 06:13] LABS: Anion Gap 13 mmol/L (10-20); BUN (Urea Nitrogen) 7 mg/dL (8.9-20.6); Calc. Creatinine Clearance 187 mL/min (70-130); Calcium 8.8 mg/dL (7.8-10.44); Carbon Dioxide 24 mmol/L (22-29); Chloride 101 mmol/L (98-107); Estimated GFR 127; Glucose 89 mg/dL (70-105); Potassium 3.8 mmol/L (3.5-5.1); Sodium 134 mmol/L (136-145)
[2024-06-19 06:19] LABS: #Basophils 0.03 10x3/uL (0.0-0.2); %Lymphocytes 30.8 % (21.0-51.0); %Monocytes 9.8 % (0.0-10.0); %Neutrophils 55.4 % (42.0-75.0); Hematocrit 34.9 % (42.0-52.0); Hemoglobin 11.5 g/dL (14.0-18.0); Mean Corpuscular Hemoglobin 26.9 pg (27.0-31.0); Mean Corpuscular Volume 81.5 fL (78.0-98.0); Mean Platelet Volume 9.7 fL (7.4-10.4); Platelet Count 118 10x3/uL (130-400); RBC Distribution Width 15.7 % (11.5-14.5); Red Blood Cell (RBC) Count 4.28 mill/uL (4.70-6.10)
[2024-06-19 11:57] VITALS: BP 122/72; TEMP 98.1
[2024-06-19] MEDS ORDERED: Lorazepam 1 MG TAB PO PRN (12:25)
[2024-06-19] MEDS ORDERED: Lorazepam 0.5 MG TAB PO SCH (12:30)
[2024-06-20] MEDS ORDERED: FLU (Fluarix Triv) TS24-25(6MOS UP)/PF 45 MCG/0.5 ML Syringe IM ONE (09:00)
[2024-06-20] MEDS ORDERED: Lorazepam 0.5 MG TAB PO PRN (12:25)
[2024-06-20] MEDS ORDERED: Thiamine 100 MG TAB PO SCH (12:30)
== END 2024-06-19 13:14 | disposition home or self-care (01) | DRG 897 ==
LOC: ERS 08:08 → ERHOLD 12:17 → 2NO 13:42 → T4-B 06-18 19:14
PROVIDERS: ADMIT Hospitalist; ATTEND Internal Medicine
DX: F10.121 Alcohol abuse with intoxication delirium (principal); F10.139 Alcohol abuse with withdrawal, unspecified; G40.909 Epilepsy, unspecified, not intractable, without status epilepticus; F31.9 Bipolar disorder, unspecified; F17.210 Nicotine dependence, cigarettes, uncomplicated; F41.9 Anxiety disorder, unspecified; I10 Essential (primary) hypertension; Z88.8 Allergy status to other drugs, medicaments and biological substances; Z79.899 Other long term (current) drug therapy; Z98.890 Other specified postprocedural states; Z76.5 Malingerer [conscious simulation]
CPT/HCPCS: 36415; 36416; 80048; 80053; 80307; 83605; 83690; 83735; 85025; 93005; 93010; 96365; 96375; J2060; J2405; J2560; J3411; J3475; J3480; J7120

== ENCOUNTER 2024-07-24 21:52 | Inpatient (IN) | payer OTHER ==
[2024-07-25] MEDS ORDERED: Ondansetron PF 4 MG/2 ML Vial ONE (00:10)
[2024-07-25] MEDS ORDERED: Lorazepam 2 MG/ML VIAL ONE (00:10)
[2024-07-25] MEDS ORDERED: levETIRAcetam 500 MG (5 mL) VIAL ONE (00:11)
[2024-07-25 00:13] LABS: #Basophils 0.04 10x3/uL (0.0-0.2); %Basophils 1.1 % (0.0-1.0); %Eosinophils 0.8 % (0.0-10.0); %Lymphocytes 27.4 % (21.0-51.0); %Monocytes 10.9 % (0.0-10.0); %Neutrophils 59.8 % (42.0-75.0); Hematocrit 42.5 % (42.0-52.0); Mean Corpuscular HGB CONC 32.9 g/dL (32.0-36.0); Mean Corpuscular Hemoglobin 26.8 pg (27.0-31.0); Mean Corpuscular Volume 81.3 fL (78.0-98.0); Mean Platelet Volume 9.7 fL (7.4-10.4); Platelet Count 86 10x3/uL (130-400); Red Blood Cell (RBC) Count 5.23 mill/uL (4.70-6.10)
[2024-07-25] MEDS ORDERED: chlordiazePOXIDE HCl 25 MG CAP ONE (00:19)
[2024-07-25 00:34] LABS: Acetaminophen Less than 10 mcg/mL (Less than 10); Alcohol 30.3 mg/dL (Less than 10); Lipase 39 U/L (8-78); Magnesium 1.2 mg/dL (1.6-2.6); Salicylate Less than 8.0 mg/dL (Less than 8.0)
[2024-07-25 00:35] LABS: ALT (SGPT) 111 U/L (8-55); AST (SGOT) 318 U/L (5-34); Albumin 4.2 g/dL (3.5-5.0); Alkaline Phosphatase 145 U/L (40-110); Anion Gap 24 mmol/L (10-20); BUN (Urea Nitrogen) 6 mg/dL (8.9-20.6); Bilirubin, Total 2.3 mg/dL (0.2-1.2); Calc. Creatinine Clearance 0 mL/min (70-130); Calcium 9.3 mg/dL (7.8-10.44); Carbon Dioxide 23 mmol/L (22-29); Chloride 95 mmol/L (98-107); Estimated GFR 120; Globulin 4.4 g/dL (2.4-3.5); Glucose 97 mg/dL (70-105); Platelet Adequacy Comment Platelets Decreased; Potassium 3.4 mmol/L (3.5-5.1); Protein, Total 8.6 g/dL (6.0-8.3); RBC Morphology Within Normal Limits; Sodium 139 mmol/L (136-145)
[2024-07-25 00:36] LABS: Troponin I 0.011 ng/mL (< 0.028)
[2024-07-25] MEDS ORDERED: Magnesium 2 GM/50 ML BAG (IN WATER) ONE (01:45)
[2024-07-25] MEDS ORDERED: Lorazepam 2 MG/ML VIAL IM PRN (02:56)
[2024-07-25] MEDS ORDERED: Electrolyte Replacement Protocol 1 EACH FS SCH (03:00)
[2024-07-25 05:06] LABS: INR-International Normal Ratio 1.2; PTT 29.9 sec (22.9-36.1)
[2024-07-25 05:07] LABS: #Basophils 0.03 10x3/uL (0.0-0.2); %Basophils 1.1 % (0.0-1.0); %Eosinophils 1.4 % (0.0-10.0); %Lymphocytes 36.7 % (21.0-51.0); %Monocytes 8.5 % (0.0-10.0); %Neutrophils 51.9 % (42.0-75.0); Hematocrit 38.5 % (42.0-52.0); Hemoglobin 12.5 g/dL (14.0-18.0); Mean Corpuscular HGB CONC 32.5 g/dL (32.0-36.0); Mean Corpuscular Hemoglobin 26.5 pg (27.0-31.0); Mean Corpuscular Volume 81.7 fL (78.0-98.0); Mean Platelet Volume 10.2 fL (7.4-10.4); Platelet Count 73 10x3/uL (130-400); RBC Distribution Width 17.8 % (11.5-14.5); Red Blood Cell (RBC) Count 4.71 mill/uL (4.70-6.10)
[2024-07-25 05:39] LABS: ALT (SGPT) 89 U/L (8-55); AST (SGOT) 253 U/L (5-34); Albumin 3.6 g/dL (3.5-5.0); Alkaline Phosphatase 121 U/L (40-110); Anion Gap 20 mmol/L (10-20); BUN (Urea Nitrogen) 7 mg/dL (8.9-20.6); Bilirubin, Total 2.5 mg/dL (0.2-1.2); Calc. Creatinine Clearance 0 mL/min (70-130); Calcium 8.5 mg/dL (7.8-10.44); Carbon Dioxide 20 mmol/L (22-29); Chloride 98 mmol/L (98-107); Estimated GFR 125; Globulin 3.8 g/dL (2.4-3.5); Glucose 81 mg/dL (70-105); Potassium 3.3 mmol/L (3.5-5.1); Protein, Total 7.4 g/dL (6.0-8.3); Sodium 135 mmol/L (136-145)
[2024-07-25] MEDS: Lorazepam 1 MG TAB PO PRN (06:37)
[2024-07-25] MEDS: Potassium Chloride 20 MEQ TAB PO SCH (06:37)
[2024-07-25] MEDS: Acetaminophen 500 MG TAB PO PRN (06:37)
[2024-07-25] MEDS: Thiamine HCl 200 MG/2 ML VIAL SLOW IVP SCH (06:38)
[2024-07-25] MEDS: Ondansetron PF 4 MG/2 ML Vial IVP PRN (06:39)
[2024-07-25] MEDS: Lorazepam 1 MG TAB PO SCH (06:42)
[2024-07-25 07:28] LABS: Phosphorus 3.3 mg/dL (2.3-4.7)
[2024-07-25] MEDS: Magnesium 2 GM/50 ML(in water) 2 GM in Premix 1 BAG IVPB SCH (09:16)
[2024-07-25] MEDS: Pantoprazole DR 40 MG TAB PO SCH (09:16)
[2024-07-25] MEDS: Folic Acid 1 MG TAB PO SCH (09:16)
[2024-07-25] MEDS: Multivit, Therapeutic 1 TAB PO SCH (09:16)
[2024-07-25 16:38] LABS: Bacteria/HPF None Seen HPF (None Seen); Bilirubin 1+ (Negative); Blood, Urine Negative (Negative); CAUTI Indications for Culture Dysuria,urgency,freq; Clarity Clear (Clear); Glucose, Urine (Dipstick) Normal (Negative); Ketone, Urine Negative (Negative); Leukocyte 25 Leu/uL (Negative); Nitrite Negative (Negative); Protein, Urine (Dipstick) 300 mg/dL (Neg-Trace); RBC/HPF 0-3 HPF (0-3); Specific Gravity, Urine 1.024 (1.002-1.036); Squamous Epithelial 0-3 HPF (0-3); Urobilinogen 6 mg/dL (Less than 2); WBC/HPF 0-3 HPF (0-3); pH, Urine 8.5 (5.0-9.0)
[2024-07-25 16:39] LABS: Urine Culture Reflex No No
[2024-07-25] MEDS: levETIRAcetam 500 MG TAB PO SCH (20:29)
[2024-07-25 20:33] VITALS: BMI 26.9
[2024-07-26] MEDS ORDERED: Lorazepam 1 MG TAB PO PRN (02:56)
[2024-07-26 05:06] LABS: #Basophils Less than 0.03 10x3/uL (0.0-0.2); %Basophils 0.7 % (0.0-1.0); %Eosinophils 2.2 % (0.0-10.0); %Lymphocytes 42.3 % (21.0-51.0); %Monocytes 10.1 % (0.0-10.0); %Neutrophils 44.3 % (42.0-75.0); Hematocrit 37.5 % (42.0-52.0); Hemoglobin 12.3 g/dL (14.0-18.0); Mean Corpuscular HGB CONC 32.8 g/dL (32.0-36.0); Mean Corpuscular Hemoglobin 26.5 pg (27.0-31.0); Mean Corpuscular Volume 80.8 fL (78.0-98.0); Mean Platelet Volume 10.5 fL (7.4-10.4); Platelet Count 57 10x3/uL (130-400); RBC Distribution Width 17.1 % (11.5-14.5); Red Blood Cell (RBC) Count 4.64 mill/uL (4.70-6.10)
[2024-07-26 05:11] LABS: ALT (SGPT) 67 U/L (8-55); AST (SGOT) 174 U/L (5-34); Albumin 3.4 g/dL (3.5-5.0); Alkaline Phosphatase 112 U/L (40-110); Anion Gap 14 mmol/L (10-20); BUN (Urea Nitrogen) 7 mg/dL (8.9-20.6); Bilirubin, Total 2.4 mg/dL (0.2-1.2); Calc. Creatinine Clearance 160 mL/min (70-130); Calcium 8.7 mg/dL (7.8-10.44); Carbon Dioxide 25 mmol/L (22-29); Chloride 100 mmol/L (98-107); Estimated GFR 124; Globulin 3.7 g/dL (2.4-3.5); Glucose 80 mg/dL (70-105); Potassium 3.3 mmol/L (3.5-5.1); Protein, Total 7.1 g/dL (6.0-8.3); Sodium 136 mmol/L (136-145)
[2024-07-26] MEDS: Potassium Chloride 20 MEQ TAB PO SCH (10:07)
[2024-07-26 13:57] VITALS: BP 120/79; TEMP 98.1
[2024-07-27] MEDS ORDERED: Lorazepam 1 MG TAB PO PRN (02:56)
[2024-07-27] MEDS ORDERED: Lorazepam 0.5 MG TAB PO SCH (03:00)
[2024-07-28] MEDS ORDERED: Lorazepam 0.5 MG TAB PO PRN (02:56)
[2024-07-28] MEDS ORDERED: Thiamine 100 MG TAB PO SCH (09:00)
== END 2024-07-26 15:20 | disposition home or self-care (01) | DRG 897 ==
LOC: ERS 21:52 → ERHOLD 07-25 02:54 → PCU 07-25 05:25
PROVIDERS: ADMIT Internal Medicine; ATTEND Internal Medicine
PROC: HZ2ZZZZ Detoxification Services for Substance Abuse Treatment (ICD-10-PCS; principal; 2024-07-25)
DX: F10.231 Alcohol dependence with withdrawal delirium (principal); G40.909 Epilepsy, unspecified, not intractable, without status epilepticus; I10 Essential (primary) hypertension; F41.9 Anxiety disorder, unspecified; F43.10 Post-traumatic stress disorder, unspecified; F31.9 Bipolar disorder, unspecified; F17.210 Nicotine dependence, cigarettes, uncomplicated; E87.6 Hypokalemia; E83.42 Hypomagnesemia; D69.6 Thrombocytopenia, unspecified; D72.819 Decreased white blood cell count, unspecified; Z88.8 Allergy status to other drugs, medicaments and biological substances
CPT/HCPCS: 36415; 80053; 80177; 80307; 81001; 83690; 83735; 84100; 84484; 85025; 85610; 85730; 93005; 96365; 96367; 96375; J1953; J2060; J2405; J3411; J3475

== ENCOUNTER 2024-08-24 18:46 | Inpatient (IN) | payer OTHER ==
[2024-08-24] MEDS ORDERED: levETIRAcetam 500 MG (5 mL) VIAL ONE (19:23)
[2024-08-24] MEDS ORDERED: Thiamine HCl 200 MG/2 ML VIAL ONE (19:23)
[2024-08-24 19:37] LABS: Lipase 49 U/L (8-78); Magnesium 1.6 mg/dL (1.6-2.6)
[2024-08-24 19:38] LABS: Acetaminophen Less than 10 mcg/mL (Less than 10); Alcohol 137.9 mg/dL (Less than 10); Salicylate Less than 8.0 mg/dL (Less than 8.0)
[2024-08-24 19:39] LABS: ALT (SGPT) 136 U/L (8-55); AST (SGOT) 474 U/L (5-34); Albumin 3.3 g/dL (3.5-5.0); Alkaline Phosphatase 203 U/L (40-110); Anion Gap 19 mmol/L (10-20); BUN (Urea Nitrogen) 4 mg/dL (8.9-20.6); Bilirubin, Total 1.9 mg/dL (0.2-1.2); Calc. Creatinine Clearance 0 mL/min (70-130); Calcium 8.6 mg/dL (7.8-10.44); Carbon Dioxide 24 mmol/L (22-29); Chloride 101 mmol/L (98-107); Estimated GFR 133; Glucose 95 mg/dL (70-105); Potassium 3.9 mmol/L (3.5-5.1); Protein, Total 8.3 g/dL (6.0-8.3); Sodium 140 mmol/L (136-145)
[2024-08-24 19:48] LABS: #Basophils 0.06 10x3/uL (0.0-0.2); %Basophils 1.2 % (0.0-1.0); %Eosinophils 1.5 % (0.0-10.0); %Lymphocytes 18.7 % (21.0-51.0); %Monocytes 5.4 % (0.0-10.0); %Neutrophils 72.8 % (42.0-75.0); Hematocrit 39.2 % (42.0-52.0); Hemoglobin 13.3 g/dL (14.0-18.0); Mean Corpuscular HGB CONC 33.9 g/dL (32.0-36.0); Mean Corpuscular Hemoglobin 26.9 pg (27.0-31.0); Mean Corpuscular Volume 79.4 fL (78.0-98.0); Platelet Count 204 10x3/uL (130-400); RBC Distribution Width 18.9 % (11.5-14.5); Red Blood Cell (RBC) Count 4.94 mill/uL (4.70-6.10)
[2024-08-24] MEDS ORDERED: Lorazepam 2 MG/ML VIAL ONE ×2 (20:36→22:21)
[2024-08-24 21:08] LABS: Troponin I Less than 0.010 ng/mL (< 0.028)
[2024-08-24] MEDS ORDERED: Ondansetron PF 4 MG/2 ML Vial ONE (21:40)
[2024-08-24 22:08] LABS: Bacteria/HPF None Seen HPF (None Seen); Bilirubin Negative (Negative); Blood, Urine Negative (Negative); CAUTI Indications for Culture Dysuria,urgency,freq; Clarity Clear (Clear); Glucose, Urine (Dipstick) Normal (Negative); Ketone, Urine Negative (Negative); Leukocyte Negative Leu/uL (Negative); Nitrite Negative (Negative); Protein, Urine (Dipstick) 50 mg/dL (Neg-Trace); RBC/HPF 0-3 HPF (0-3); Specific Gravity, Urine 1.022 (1.002-1.036); Squamous Epithelial 0-3 HPF (0-3); Urobilinogen 6 mg/dL (Less than 2); WBC/HPF 0-3 HPF (0-3); pH, Urine 8.5 (5.0-9.0)
[2024-08-24 22:16] LABS: Amphetamine Not Detected (NotDetected); Barbiturates Screen Detected (NotDetected); Benzodiazepine Screen Detected (NotDetected); Cocaine Metabolite Screen Not Detected (NotDetected); Methadone Not Detected (NotDetected); Methamphetamine Not Detected (NotDetected); Opiate Screen Not Detected (NotDetected); Oxycodone Screen Not Detected (NotDetected); Phencyclidine (PCP) Not Detected (NotDetected); THC/Cannabinoid Screen Not Detected (NotDetected); Tricyclic Screen Not Detected (NotDetected)
[2024-08-24 22:31] LABS: Urine Culture Reflex No No
[2024-08-24] MEDS ORDERED: chlordiazePOXIDE HCl 25 MG CAP ONE (23:15)
[2024-08-24] MEDS ORDERED: Lorazepam 2 MG/ML VIAL IM PRN (23:40)
[2024-08-24] MEDS ORDERED: Acetaminophen 325 MG TAB PO PRN (23:43)
[2024-08-24] MEDS ORDERED: traMADol HCl 50 MG TAB PO PRN (23:43)
[2024-08-24] MEDS ORDERED: Electrolyte Replacement Protocol FS SCH (23:45)
[2024-08-24] MEDS ORDERED: hydrALAZINE 25 MG TAB PO PRN (23:59)
[2024-08-25 01:04] VITALS: BMI 23.9
[2024-08-25 01:17] LABS: INR-International Normal Ratio 1.1; PTT 34.6 sec (22.9-36.1); Prothrombin Time 14.7 sec (12.0-14.7)
[2024-08-25] MEDS: Lorazepam 1 MG TAB PO SCH (01:18)
[2024-08-25] MEDS: Thiamine HCl 200 MG/2 ML VIAL SLOW IVP SCH (01:18)
[2024-08-25 01:21] LABS: Magnesium 1.4 mg/dL (1.6-2.6)
[2024-08-25] MEDS: Magnesium Sulfate In Water 4 GM in Premix 1 BAG IVPB SCH (02:11)
[2024-08-25] MEDS: D5 1/2 NS w/10 mEq KCl 1,000 ML/1,000 ML BAG IV SCH (02:54)
[2024-08-25 04:13] LABS: #Basophils 0.03 10x3/uL (0.0-0.2); %Basophils 0.7 % (0.0-1.0); %Eosinophils 1.3 % (0.0-10.0); %Lymphocytes 23.8 % (21.0-51.0); %Monocytes 5.6 % (0.0-10.0); %Neutrophils 68.4 % (42.0-75.0); Hematocrit 34.8 % (42.0-52.0); Hemoglobin 11.6 g/dL (14.0-18.0); Mean Corpuscular HGB CONC 33.3 g/dL (32.0-36.0); Mean Corpuscular Hemoglobin 27.6 pg (27.0-31.0); Mean Corpuscular Volume 82.7 fL (78.0-98.0); Mean Platelet Volume 9.7 fL (7.4-10.4); Platelet Count 126 10x3/uL (130-400); RBC Distribution Width 18.9 % (11.5-14.5); Red Blood Cell (RBC) Count 4.21 mill/uL (4.70-6.10)
[2024-08-25 04:32] LABS: ALT (SGPT) 104 U/L (8-55); AST (SGOT) 371 U/L (5-34); Albumin 2.8 g/dL (3.5-5.0); Alkaline Phosphatase 169 U/L (40-110); Anion Gap 14 mmol/L (10-20); BUN (Urea Nitrogen) 4 mg/dL (8.9-20.6); Bilirubin, Total 1.9 mg/dL (0.2-1.2); Calc. Creatinine Clearance 168 mL/min (70-130); Calcium 8.2 mg/dL (7.8-10.44); Carbon Dioxide 25 mmol/L (22-29); Chloride 103 mmol/L (98-107); Estimated GFR 130; Globulin 4.3 g/dL (2.4-3.5); Glucose 85 mg/dL (70-105); Potassium 3.8 mmol/L (3.5-5.1); Protein, Total 7.1 g/dL (6.0-8.3); Sodium 138 mmol/L (136-145)
[2024-08-25] MEDS: Magnesium 2 GM/50 ML(in water) 2 GM in Premix 1 BAG IVPB SCH (05:25)
[2024-08-25] MEDS: Folic Acid 1 MG TAB PO SCH (08:44)
[2024-08-25] MEDS: Multivit, Therapeutic 1 TAB PO SCH (08:44)
[2024-08-25] MEDS: levETIRAcetam 500 MG TAB PO SCH (08:44)
[2024-08-25] MEDS: chlordiazePOXIDE HCl 25 MG CAP PO SCH (08:44)
[2024-08-25] MEDS ORDERED: Multivit, Therapeutic 1 TAB PO SCH (09:00)
[2024-08-25 11:52] VITALS: BMI 23.9
[2024-08-25] MEDS: Ondansetron ODT 4 MG TAB PO PRN (12:57)
[2024-08-25] MEDS: Lorazepam 1 MG TAB PO PRN (12:57)
[2024-08-25] MEDS ORDERED: Lorazepam 1 MG TAB PO PRN (23:40)
[2024-08-26 08:32] VITALS: TEMP 98
[2024-08-26] MEDS ORDERED: Lorazepam 1 MG TAB PO PRN (23:40)
[2024-08-27] MEDS ORDERED: Lorazepam 0.5 MG TAB PO SCH (06:00)
[2024-08-27] MEDS ORDERED: Lorazepam 0.5 MG TAB PO PRN (23:40)
[2024-08-28] MEDS ORDERED: Thiamine 100 MG TAB PO SCH (09:00)
== END 2024-08-26 11:42 | disposition home or self-care (01) | DRG 897 ==
LOC: ERS 18:46 → INTOOBSV 22:42 → CCU 22:42 → OBSVTOIN 22:42
PROVIDERS: ADMIT Internal Medicine; ATTEND Internal Medicine
PROC: HZ2ZZZZ Detoxification Services for Substance Abuse Treatment (ICD-10-PCS; principal; 2024-08-24)
DX: F10.239 Alcohol dependence with withdrawal, unspecified (principal); F10.229 Alcohol dependence with intoxication, unspecified; I10 Essential (primary) hypertension; G40.909 Epilepsy, unspecified, not intractable, without status epilepticus; F17.210 Nicotine dependence, cigarettes, uncomplicated; F43.10 Post-traumatic stress disorder, unspecified; E83.42 Hypomagnesemia; K70.10 Alcoholic hepatitis without ascites; Z91.148 Patient's other noncompliance with medication regimen for other reason; Z88.8 Allergy status to other drugs, medicaments and biological substances
CPT/HCPCS: 36415; 70450; 71045; 72125; 74176; 80053; 80306; 80307; 81001; 83690; 83735; 84100; 84443; 84484; 85025; 85610; 85730; 93005; 96374; 96375; 96376; J1953; J2060; J2405; J3411; J3475; J3480; Q0162

== ENCOUNTER 2024-09-05 06:40 | Inpatient (IN) | payer OTHER ==
[2024-09-05 07:24] LABS: ALT (SGPT) 100 U/L (Less than 45); AST (SGOT) 475 U/L (11-34); Albumin 3.6 g/dL (3.1-4.5); Alkaline Phosphatase 210 U/L (40-110); Anion Gap 18 mmol/L (10-20); BUN (Urea Nitrogen) 5 mg/dL (8.9-20.6); Bilirubin, Total 1.9 mg/dL (0.3-1.2); Calc. Creatinine Clearance 0 mL/min (70-130); Calcium 8.4 mg/dL (7.8-10.44); Carbon Dioxide 23 mmol/L (22-29); Chloride 105 mmol/L (98-107); Estimated GFR 126; Globulin 4.7 g/dL (2.4-3.5); Glucose 117 mg/dL (70-105); Lipase 38 U/L (8-78); Magnesium 1.6 mg/dL (1.6-2.6); Potassium 4.1 mmol/L (3.5-5.1); Protein, Total 8.3 g/dL (6.0-8.3); Sodium 142 mmol/L (136-145)
[2024-09-05 07:25] LABS: Acetaminophen Less than 10 mcg/mL (Less than 10); Alcohol Less than 10.0 mg/dL (Less than 10); Salicylate Less than 8.0 mg/dL (Less than 8.0)
[2024-09-05] MEDS ORDERED: Diazepam 10 MG/2 ML SYRINGE ONE (07:26)
[2024-09-05] MEDS ORDERED: Aspirin Chewable 81 MG TAB ONE (07:26)
[2024-09-05] MEDS ORDERED: Thiamine HCl 200 MG/2 ML VIAL ONE (07:26)
[2024-09-05] MEDS ORDERED: levETIRAcetam 500 MG (5 mL) VIAL ONE (07:26)
[2024-09-05 07:29] LABS: Troponin I Less than 0.010 ng/mL (< 0.028)
[2024-09-05 07:43] LABS: #Basophils 0.03 10x3/uL (0.0-0.2); #Eosinophils Less than 0.03 10x3/uL (0.0-0.7); %Basophils 0.8 % (0.0-1.0); %Eosinophils 0.5 % (0.0-10.0); %Lymphocytes 20.2 % (21.0-51.0); Hematocrit 40.7 % (42.0-52.0); Hemoglobin 13.7 g/dL (14.0-18.0); Mean Corpuscular HGB CONC 33.7 g/dL (32.0-36.0); Mean Corpuscular Hemoglobin 27.6 pg (27.0-31.0); Mean Corpuscular Volume 82.1 fL (78.0-98.0); Mean Platelet Volume 9.5 fL (7.4-10.4); Platelet Count 134 10x3/uL (130-400); RBC Distribution Width 18.3 % (11.5-14.5); Red Blood Cell (RBC) Count 4.96 mill/uL (4.70-6.10)
[2024-09-05] MEDS ORDERED: chlordiazePOXIDE HCl 25 MG CAP ONE ×2 (08:47→16:33)
[2024-09-05 10:28] LABS: Amphetamine Not Detected (NotDetected); Barbiturates Screen Detected (NotDetected); Benzodiazepine Screen Detected (NotDetected); Cocaine Metabolite Screen Not Detected (NotDetected); Methadone Not Detected (NotDetected); Methamphetamine Not Detected (NotDetected); Opiate Screen Not Detected (NotDetected); Oxycodone Screen Not Detected (NotDetected); Phencyclidine (PCP) Not Detected (NotDetected); THC/Cannabinoid Screen Not Detected (NotDetected); Tricyclic Screen Not Detected (NotDetected)
[2024-09-05] MEDS ORDERED: Iopamidol-370 76% 500 ML MDV (1 ML CHARGE) ONE (10:53)
[2024-09-05] MEDS ORDERED: Lorazepam 1 MG TAB PO PRN (11:42)
[2024-09-05] MEDS ORDERED: Loperamide HCl 2 MG CAP PO PRN (11:42)
[2024-09-05] MEDS ORDERED: Ondansetron ODT 4 MG TAB PO PRN (11:42)
[2024-09-05] MEDS ORDERED: Lorazepam 2 MG/ML VIAL IM PRN (11:42)
[2024-09-05] MEDS ORDERED: Electrolyte Replacement Protocol 1 EACH FS SCH (11:45)
[2024-09-05] MEDS ORDERED: Lorazepam 1 MG TAB ONE (16:34)
[2024-09-05] MEDS: chlordiazePOXIDE HCl 25 MG CAP PO SCH ×2 (16:41→18:41)
[2024-09-05] MEDS: Lorazepam 1 MG TAB PO SCH (16:41)
[2024-09-05 17:13] VITALS: BMI 27.8
[2024-09-05] MEDS: levETIRAcetam 500 MG (5 mL) VIAL SLOW IVP SCH (18:41)
[2024-09-05] MEDS: Promethazine HCl 25 MG in Sodium Chloride 0.9% 50 ML IVPB SCH (18:41)
[2024-09-05] MEDS: Gabapentin 300 MG CAP PO SCH (21:38)
[2024-09-05] MEDS: Sodium Chloride 0.9% 1,000 ML IV SCH (21:39)
[2024-09-05] MEDS: Famotidine/PF 20 mg/2ml Vial SLOW IVP SCH (21:39)
[2024-09-05] MEDS: levETIRAcetam 500 MG TAB PO SCH (21:39)
[2024-09-05] MEDS: Magnesium 2 GM/50 ML(in water) 2 GM in Premix 1 BAG IVPB SCH (21:59)
[2024-09-06 06:09] LABS: ALT (SGPT) 60 U/L (Less than 45); AST (SGOT) 257 U/L (11-34); Albumin 2.8 g/dL (3.1-4.5); Alkaline Phosphatase 164 U/L (40-110); Anion Gap 12 mmol/L (10-20); BUN (Urea Nitrogen) 5 mg/dL (8.9-20.6); Bilirubin, Total 2.3 mg/dL (0.3-1.2); Calc. Creatinine Clearance 199 mL/min (70-130); Calcium 7.8 mg/dL (7.8-10.44); Carbon Dioxide 21 mmol/L (22-29); Chloride 107 mmol/L (98-107); Estimated GFR 132; Globulin 3.7 g/dL (2.4-3.5); Glucose 79 mg/dL (70-105); Potassium 4.1 mmol/L (3.5-5.1); Protein, Total 6.5 g/dL (6.0-8.3); Sodium 136 mmol/L (136-145)
[2024-09-06] MEDS: Multivit, Therapeutic 1 TAB PO SCH (09:18)
[2024-09-06] MEDS: Amlodipine 5 MG TAB PO SCH (09:18)
[2024-09-06] MEDS: Folic Acid 1 MG TAB PO SCH (09:18)
[2024-09-06] MEDS: Thiamine HCl 200 MG/2 ML VIAL SLOW IVP SCH (11:23)
[2024-09-06] MEDS ORDERED: Lorazepam 1 MG TAB PO PRN (11:42)
[2024-09-06 11:51] VITALS: BP 116/82; TEMP 98.1
[2024-09-07] MEDS ORDERED: Lorazepam 1 MG TAB PO PRN (11:42)
[2024-09-07] MEDS ORDERED: Lorazepam 0.5 MG TAB PO SCH (11:45)
[2024-09-08] MEDS ORDERED: Lorazepam 0.5 MG TAB PO PRN (11:42)
[2024-09-08] MEDS ORDERED: Thiamine 100 MG TAB PO SCH (12:00)
== END 2024-09-06 15:58 | disposition home or self-care (01) | DRG 897 ==
LOC: ERS 06:40 → ERHOLD 11:07 → 2NO 17:06
PROVIDERS: ADMIT Internal Medicine; ATTEND Internal Medicine
DX: F10.239 Alcohol dependence with withdrawal, unspecified (principal); I10 Essential (primary) hypertension; F41.9 Anxiety disorder, unspecified; F32.A Depression, unspecified; F17.210 Nicotine dependence, cigarettes, uncomplicated; G40.909 Epilepsy, unspecified, not intractable, without status epilepticus; F41.1 Generalized anxiety disorder; F43.10 Post-traumatic stress disorder, unspecified; K20.90 Esophagitis, unspecified without bleeding; Z79.01 Long term (current) use of anticoagulants; Z98.890 Other specified postprocedural states; Z79.899 Other long term (current) drug therapy
CPT/HCPCS: 36415; 71045; 71275; 80053; 80306; 80307; 83690; 83735; 84484; 85025; 85379; 93005; 94760; 96374; 96375; J1953; J2550; J3360; J3411; J3475; J3490; J7030; Q9967

== ENCOUNTER 2024-09-15 11:58 | Inpatient (IN) | payer OTHER ==
[2024-09-15] MEDS ORDERED: Ketorolac Tromethamine 30 MG (1 mL) VIAL ONE (12:56)
[2024-09-15] MEDS ORDERED: Lorazepam 2 MG/ML VIAL ONE ×2 (12:56→16:20)
[2024-09-15] MEDS ORDERED: Promethazine HCl 25 MG/ML VIAL ONE (12:56)
[2024-09-15] MEDS ORDERED: Thiamine HCl 200 MG/2 ML VIAL ONE (12:56)
[2024-09-15 13:00] LABS: #Basophils 0.05 10x3/uL (0.0-0.2); %Basophils 1.3 % (0.0-1.0); %Eosinophils 0.8 % (0.0-10.0); %Lymphocytes 25.5 % (21.0-51.0); %Monocytes 8.8 % (0.0-10.0); %Neutrophils 63.3 % (42.0-75.0); Hematocrit 38.2 % (42.0-52.0); Hemoglobin 12.6 g/dL (14.0-18.0); Mean Corpuscular Hemoglobin 27.9 pg (27.0-31.0); Mean Corpuscular Volume 84.5 fL (78.0-98.0); Mean Platelet Volume 9.3 fL (7.4-10.4); Platelet Count 131 10x3/uL (130-400); RBC Distribution Width 17.2 % (11.5-14.5); Red Blood Cell (RBC) Count 4.52 mill/uL (4.70-6.10)
[2024-09-15 13:18] LABS: ALT (SGPT) 86 U/L (Less than 45); AST (SGOT) 334 U/L (11-34); Albumin 3.6 g/dL (3.1-4.5); Alkaline Phosphatase 197 U/L (40-110); Anion Gap 21 mmol/L (10-20); BUN (Urea Nitrogen) 5 mg/dL (8.9-20.6); Bilirubin, Total 1.6 mg/dL (0.3-1.2); CK (CPK) 317 U/L (30-200); Calc. Creatinine Clearance 0 mL/min (70-130); Carbon Dioxide 21 mmol/L (22-29); Chloride 106 mmol/L (98-107); Estimated GFR 133; Globulin 4.8 g/dL (2.4-3.5); Glucose 98 mg/dL (70-105); Lipase 38 U/L (8-78); Magnesium 1.4 mg/dL (1.6-2.6); Potassium 3.9 mmol/L (3.5-5.1); Protein, Total 8.4 g/dL (6.0-8.3); Sodium 144 mmol/L (136-145)
[2024-09-15 13:21] LABS: Troponin I Less than 0.010 ng/mL (< 0.028)
[2024-09-15] MEDS ORDERED: Ondansetron ODT 4 MG TAB PO PRN (14:15)
[2024-09-15] MEDS ORDERED: Lorazepam 2 MG/ML VIAL SLOW IVP PRN (14:15)
[2024-09-15] MEDS ORDERED: Electrolyte Replacement Protocol 1 EACH FS PRN (14:15)
[2024-09-15] MEDS ORDERED: Magnesium 2 GM/50 ML BAG (IN WATER) ONE (14:46)
[2024-09-15] MEDS ORDERED: Promethazine HCl 25 MG in Sodium Chloride 0.9% 50 ML IVPB PRN (14:53)
[2024-09-15 15:11] LABS: Phosphorus 1.9 mg/dL (2.5-4.5)
[2024-09-15 16:02] LABS: Lactic Acid 2.05 mmol/L (0.50-2.20)
[2024-09-15] MEDS ORDERED: chlordiazePOXIDE HCl 25 MG CAP ONE (16:20)
[2024-09-15 19:41] VITALS: BMI 28.0
[2024-09-15] MEDS: Lactated Ringer's 1,000 ML IV SCH (19:41)
[2024-09-15] MEDS: FOLIC ACID IVP SCH (20:10)
[2024-09-15] MEDS: ADMIXTURE FEE CHEMO IVP SCH (20:10)
[2024-09-15] MEDS ORDERED: Gabapentin 300 MG CAP PO SCH (21:00)
[2024-09-15] MEDS ORDERED: levETIRAcetam 500 MG TAB PO SCH (21:00)
[2024-09-15] MEDS: Lorazepam 1 MG TAB PO SCH (21:06)
[2024-09-15] MEDS: levETIRAcetam 500 MG (5 mL) VIAL SLOW IVP SCH (21:06)
[2024-09-15] MEDS: PHOS-NAK 1 PKT PACK PO SCH (21:06)
[2024-09-15] MEDS: Pantoprazole 40 MG VIAL IVP SCH (23:10)
[2024-09-16] MEDS: Lorazepam 1 MG TAB PO PRN (03:09)
[2024-09-16 05:57] LABS: ALT (SGPT) 60 U/L (Less than 45); AST (SGOT) 219 U/L (11-34); Albumin 2.9 g/dL (3.1-4.5); Alkaline Phosphatase 155 U/L (40-110); Anion Gap 13 mmol/L (10-20); BUN (Urea Nitrogen) 4 mg/dL (8.9-20.6); Bilirubin, Total 2.1 mg/dL (0.3-1.2); Calc. Creatinine Clearance 230 mL/min (70-130); Calcium 7.4 mg/dL (7.8-10.44); Carbon Dioxide 20 mmol/L (22-29); Chloride 106 mmol/L (98-107); Estimated GFR 137; Globulin 3.9 g/dL (2.4-3.5); Glucose 84 mg/dL (70-105); Potassium 3.9 mmol/L (3.5-5.1); Protein, Total 6.8 g/dL (6.0-8.3); Sodium 135 mmol/L (136-145)
[2024-09-16 06:00] LABS: #Basophils Less than 0.03 10x3/uL (0.0-0.2); %Basophils 0.7 % (0.0-1.0); %Eosinophils 1.9 % (0.0-10.0); %Monocytes 9.3 % (0.0-10.0); %Neutrophils 56.7 % (42.0-75.0); Hematocrit 33.3 % (42.0-52.0); Mean Corpuscular Hemoglobin 28.2 pg (27.0-31.0); Mean Corpuscular Volume 85.4 fL (78.0-98.0); Mean Platelet Volume 9.8 fL (7.4-10.4); Platelet Count 103 10x3/uL (130-400); RBC Distribution Width 17.1 % (11.5-14.5)
[2024-09-16 06:09] LABS: Phosphorus 2.5 mg/dL (2.5-4.5)
[2024-09-16] MEDS: levETIRAcetam 500 MG TAB PO SCH (09:03)
[2024-09-16] MEDS: Folic Acid 1 MG TAB PO SCH (09:03)
[2024-09-16] MEDS: Calcium Carbonate 500 MG TAB PO SCH (09:03)
[2024-09-16] MEDS: Magnesium Oxide 250 MG TAB PO SCH (09:03)
[2024-09-16] MEDS: Multivit, Therapeutic 1 TAB PO SCH (09:04)
[2024-09-16] MEDS: Gabapentin 300 MG CAP PO SCH (09:04)
[2024-09-16] MEDS: Pantoprazole 40 MG DR.TAB PO SCH (09:04)
[2024-09-16] MEDS: Thiamine 100 MG TAB PO SCH (09:04)
[2024-09-16] MEDS ORDERED: Lorazepam 1 MG TAB PO PRN (14:15)
[2024-09-17 05:09] LABS: ALT (SGPT) 52 U/L (Less than 45); AST (SGOT) 175 U/L (11-34); Albumin 3.1 g/dL (3.1-4.5); Alkaline Phosphatase 163 U/L (40-110); Anion Gap 12 mmol/L (10-20); BUN (Urea Nitrogen) 5 mg/dL (8.9-20.6); Bilirubin, Total 1.6 mg/dL (0.3-1.2); Calc. Creatinine Clearance 190 mL/min (70-130); Calcium 8.3 mg/dL (7.8-10.44); Carbon Dioxide 20 mmol/L (22-29); Chloride 107 mmol/L (98-107); Estimated GFR 130; Glucose 92 mg/dL (70-105); Potassium 3.7 mmol/L (3.5-5.1); Protein, Total 7.1 g/dL (6.0-8.3); Sodium 135 mmol/L (136-145)
[2024-09-17] MEDS: Amlodipine 5 MG TAB PO SCH (08:26)
[2024-09-17 12:36] VITALS: BP 131/78; TEMP 98
[2024-09-17] MEDS ORDERED: Lorazepam 0.5 MG TAB PO SCH (14:15)
[2024-09-17] MEDS ORDERED: Lorazepam 1 MG TAB PO PRN (14:15)
[2024-09-18] MEDS ORDERED: Lorazepam 0.5 MG TAB PO PRN (14:15)
== END 2024-09-17 14:00 | disposition home or self-care (01) | DRG 897 ==
LOC: ERS 11:58 → 2SE 14:14 → OBSVTOIN 09-16 14:47
PROVIDERS: ADMIT Internal Medicine; ATTEND Internal Medicine
PROC: HZ2ZZZZ Detoxification Services for Substance Abuse Treatment (ICD-10-PCS; principal; 2024-09-16)
DX: F10.939 Alcohol use, unspecified with withdrawal, unspecified (principal); G40.909 Epilepsy, unspecified, not intractable, without status epilepticus; F41.1 Generalized anxiety disorder; I10 Essential (primary) hypertension; F43.10 Post-traumatic stress disorder, unspecified; F31.9 Bipolar disorder, unspecified; R79.89 Other specified abnormal findings of blood chemistry; Z88.8 Allergy status to other drugs, medicaments and biological substances; Z91.048 Other nonmedicinal substance allergy status
CPT/HCPCS: 36415; 71045; 80053; 80177; 82550; 83605; 83690; 83735; 84100; 84484; 85025; 93005; 96365; 96367; 96375; 96376; G0378; J1885; J1953; J2060; J2550; J3411; J3475; J7120

== ENCOUNTER 2024-09-20 01:38 | Inpatient (IN) | payer OTHER ==
[2024-09-20 04:39] VITALS: BMI 28.5
[2024-09-20] MEDS ORDERED: Ondansetron PF 4 MG/2 ML Vial IVP PRN (06:06)
[2024-09-20] MEDS ORDERED: Acetaminophen 325 MG TAB PO PRN (06:06)
[2024-09-20] MEDS ORDERED: Lorazepam 2 MG/ML VIAL IM PRN (06:10)
[2024-09-20] MEDS ORDERED: Electrolyte Replacement Protocol FS SCH (06:15)
[2024-09-20 06:37] LABS: Phosphorus 2.6 mg/dL (2.5-4.5)
[2024-09-20 06:39] LABS: #Basophils Less than 0.03 10x3/uL (0.0-0.2); %Basophils 0.5 % (0.0-1.0); %Eosinophils 2.6 % (0.0-10.0); %Lymphocytes 26.1 % (21.0-51.0); %Monocytes 8.3 % (0.0-10.0); %Neutrophils 62.3 % (42.0-75.0); Hematocrit 32.5 % (42.0-52.0); Hemoglobin 10.8 g/dL (14.0-18.0); Mean Corpuscular HGB CONC 33.2 g/dL (32.0-36.0); Mean Corpuscular Hemoglobin 28.5 pg (27.0-31.0); Mean Corpuscular Volume 85.8 fL (78.0-98.0); Mean Platelet Volume 9.8 fL (7.4-10.4); Platelet Count 93 10x3/uL (130-400); RBC Distribution Width 16.2 % (11.5-14.5); Red Blood Cell (RBC) Count 3.79 mill/uL (4.70-6.10)
[2024-09-20 06:40] LABS: ALT (SGPT) 97 U/L (Less than 45); AST (SGOT) 308 U/L (11-34); Albumin 3.1 g/dL (3.1-4.5); Alkaline Phosphatase 135 U/L (40-110); Anion Gap 13 mmol/L (10-20); BUN (Urea Nitrogen) 4 mg/dL (8.9-20.6); Bilirubin, Total 1.8 mg/dL (0.3-1.2); Calc. Creatinine Clearance 236 mL/min (70-130); Calcium 8.2 mg/dL (7.8-10.44); Carbon Dioxide 25 mmol/L (22-29); Chloride 104 mmol/L (98-107); Estimated GFR 137; Globulin 3.8 g/dL (2.4-3.5); Glucose 79 mg/dL (70-105); Magnesium 1.8 mg/dL (1.6-2.6); Potassium 3.6 mmol/L (3.5-5.1); Protein, Total 6.9 g/dL (6.0-8.3); Sodium 138 mmol/L (136-145)
[2024-09-20 06:43] LABS: INR-International Normal Ratio 1.2
[2024-09-20 06:44] LABS: PTT 32.6 sec (22.9-36.1)
[2024-09-20] MEDS: levETIRAcetam 500 MG TAB PO SCH (08:11)
[2024-09-20] MEDS: Gabapentin 300 MG CAP PO SCH (08:11)
[2024-09-20] MEDS: Multivit, Therapeutic 1 TAB PO SCH (08:11)
[2024-09-20] MEDS: Magnesium Oxide 250 MG TAB PO SCH (08:11)
[2024-09-20] MEDS: Amlodipine 5 MG TAB PO SCH (08:11)
[2024-09-20] MEDS: Magnesium 2 GM/50 ML(in water) 2 GM in Premix 1 BAG IVPB SCH (08:12)
[2024-09-20] MEDS: Folic Acid 1 MG TAB PO SCH (08:12)
[2024-09-20] MEDS: Thiamine HCl 200 MG/2 ML VIAL SLOW IVP SCH (08:12)
[2024-09-20] MEDS: Lorazepam 1 MG TAB PO PRN (08:24)
[2024-09-20 10:10] VITALS: BMI 28.5
[2024-09-21 04:22] LABS: ALT (SGPT) 105 U/L (Less than 45); AST (SGOT) 303 U/L (11-34); Albumin 3.2 g/dL (3.1-4.5); Alkaline Phosphatase 154 U/L (40-110); Anion Gap 16 mmol/L (10-20); BUN (Urea Nitrogen) 5 mg/dL (8.9-20.6); Bilirubin, Total 1.6 mg/dL (0.3-1.2); Calc. Creatinine Clearance 245 mL/min (70-130); Calcium 8.4 mg/dL (7.8-10.44); Carbon Dioxide 20 mmol/L (22-29); Chloride 105 mmol/L (98-107); Estimated GFR 138; Globulin 4.2 g/dL (2.4-3.5); Glucose 88 mg/dL (70-105); Magnesium 2.1 mg/dL (1.6-2.6); Potassium 4.3 mmol/L (3.5-5.1); Protein, Total 7.4 g/dL (6.0-8.3); Sodium 137 mmol/L (136-145)
[2024-09-21 04:24] LABS: #Basophils 0.04 10x3/uL (0.0-0.2); %Basophils 1.1 % (0.0-1.0); %Eosinophils 3.4 % (0.0-10.0); %Lymphocytes 32.5 % (21.0-51.0); %Monocytes 9.7 % (0.0-10.0); Hematocrit 34.4 % (42.0-52.0); Hemoglobin 11.5 g/dL (14.0-18.0); Mean Corpuscular HGB CONC 33.4 g/dL (32.0-36.0); Mean Corpuscular Hemoglobin 28.7 pg (27.0-31.0); Mean Corpuscular Volume 85.8 fL (78.0-98.0); Mean Platelet Volume 10.3 fL (7.4-10.4); Platelet Count 94 10x3/uL (130-400); Red Blood Cell (RBC) Count 4.01 mill/uL (4.70-6.10)
[2024-09-21 05:50] VITALS: TEMP 97.8
[2024-09-21] MEDS ORDERED: Lorazepam 1 MG TAB PO PRN (06:10)
[2024-09-21] MEDS: Folic Acid 1 MG TAB PO SCH (10:15)
[2024-09-21 10:20] VITALS: BP 125/90
[2024-09-22] MEDS ORDERED: Lorazepam 1 MG TAB PO PRN (06:10)
[2024-09-22] MEDS ORDERED: Thiamine 100 MG TAB PO SCH (09:00)
[2024-09-22] MEDS ORDERED: Folic Acid 1 MG TAB PO SCH (09:00)
[2024-09-23] MEDS ORDERED: Lorazepam 0.5 MG TAB PO PRN (06:10)
[2024-09-23] MEDS ORDERED: Thiamine 100 MG TAB PO SCH (09:00)
== END 2024-09-21 12:20 | disposition left against medical advice (07) | DRG 894 ==
LOC: PCU 04:37 → OBSVTOIN 06:06
PROVIDERS: ADMIT Internal Medicine; ATTEND Hospitalist
DX: F10.239 Alcohol dependence with withdrawal, unspecified (principal); I10 Essential (primary) hypertension; G40.909 Epilepsy, unspecified, not intractable, without status epilepticus; R79.89 Other specified abnormal findings of blood chemistry; Z53.29 Procedure and treatment not carried out because of patient's decision for other reasons
CPT/HCPCS: 36415; 80053; 83735; 84100; 85025; 85610; 85730; J3411; J3475

== ENCOUNTER 2025-03-15 18:46 | Inpatient (IN) | payer OTHER ==
[2025-03-15] MEDS ORDERED: Ondansetron PF 4 MG/2 ML Vial ONE (19:05)
[2025-03-15 20:16] LABS: #Basophils 0.06 10x3/uL (0.0-0.2); #Eosinophils Less than 0.03 10x3/uL (0.0-0.7); #Monocytes 0.52 10x3/uL (0.11-0.59); #Neutrophils 7.59 10x3/uL (1.40-6.50); %Basophils 0.6 % (0.0-1.0); %Eosinophils 0.2 % (0.0-10.0); %Lymphocytes 16.6 % (21.0-51.0); %Monocytes 5.3 % (0.0-10.0); %Neutrophils 77.1 % (42.0-75.0); Hematocrit 45.8 % (42.0-52.0); Hemoglobin 15.2 g/dL (14.0-18.0); Mean Corpuscular Hemoglobin 26.4 pg (27.0-31.0); Mean Corpuscular Volume 79.5 fL (78.0-98.0); Platelet Count 184 10x3/uL (130-400); Red Blood Cell (RBC) Count 5.76 mill/uL (4.70-6.10); White Blood Cell (WBC) Count 9.85 10x3/uL (4.8-10.8)
[2025-03-15 20:32] LABS: INR-International Normal Ratio 1.2; PTT 30.1 sec (22.9-36.1); Prothrombin Time 15.1 sec (12.0-14.7)
[2025-03-15 20:42] LABS: ALT (SGPT) 70 U/L (Less than 45); AST (SGOT) 93 U/L (11-34); Acetaminophen Less than 10 mcg/mL (Less than 10); Albumin 4.6 g/dL (3.1-4.5); Alkaline Phosphatase 121 U/L (40-110); Anion Gap 29 mmol/L (10-20); BUN (Urea Nitrogen) 9 mg/dL (8.9-20.6); Bilirubin, Total 1.5 mg/dL (0.3-1.2); Calc. Creatinine Clearance 0 mL/min (70-130); Calcium 9.5 mg/dL (7.8-10.44); Carbon Dioxide 20 mmol/L (22-29); Chloride 96 mmol/L (98-107); Globulin 4.7 g/dL (2.4-3.5); Glucose 106 mg/dL (70-105); Lipase 35 U/L (8-78); Magnesium 1.5 mg/dL (1.6-2.6); Potassium 3.9 mmol/L (3.5-5.1); Salicylate Less than 8.0 mg/dL (Less than 8.0); Sodium 141 mmol/L (136-145)
[2025-03-15 20:43] LABS: Troponin I Less than 0.010 ng/mL (< 0.028)
[2025-03-15] MEDS ORDERED: Magnesium 2 GM/50 ML BAG (IN WATER) ONE (21:54)
[2025-03-15] MEDS ORDERED: Calcium Carbonate 500 MG ChewTAB PO PRN (23:08)
[2025-03-15] MEDS ORDERED: Acetaminophen 325 MG TAB PO PRN (23:08)
[2025-03-15] MEDS ORDERED: Ondansetron PF 4 MG/2 ML Vial IVP PRN (23:08)
[2025-03-15] MEDS ORDERED: Electrolyte Replacement Protocol 1 EACH FS PRN (23:15)
[2025-03-16 02:37] VITALS: BMI 25.4
[2025-03-16] MEDS: Folic Acid 1 MG TAB PO SCH ×2 (02:55→09:37)
[2025-03-16] MEDS: Multivit, Therapeutic 1 TAB PO SCH ×2 (02:55→09:37)
[2025-03-16 05:30] LABS: #Basophils Less than 0.03 10x3/uL (0.0-0.2); #Eosinophils Less than 0.03 10x3/uL (0.0-0.7); #Monocytes 0.48 10x3/uL (0.11-0.59); #Neutrophils 3.73 10x3/uL (1.40-6.50); %Basophils 0.3 % (0.0-1.0); %Eosinophils 0.3 % (0.0-10.0); %Lymphocytes 28.5 % (21.0-51.0); %Monocytes 8.0 % (0.0-10.0); %Neutrophils 62.6 % (42.0-75.0); Hematocrit 36.5 % (42.0-52.0); Hemoglobin 11.8 g/dL (14.0-18.0); Mean Corpuscular Hemoglobin 26.3 pg (27.0-31.0); Mean Corpuscular Volume 81.5 fL (78.0-98.0); Platelet Count 120 10x3/uL (130-400); Red Blood Cell (RBC) Count 4.48 mill/uL (4.70-6.10); White Blood Cell (WBC) Count 5.97 10x3/uL (4.8-10.8)
[2025-03-16 05:35] LABS: ALT (SGPT) 48 U/L (Less than 45); AST (SGOT) 63 U/L (11-34); Albumin 3.7 g/dL (3.1-4.5); Alkaline Phosphatase 86 U/L (40-110); Anion Gap 15 mmol/L (10-20); BUN (Urea Nitrogen) 7 mg/dL (8.9-20.6); Bilirubin, Total 1.7 mg/dL (0.3-1.2); Calc. Creatinine Clearance 172 mL/min (70-130); Calcium 7.9 mg/dL (7.8-10.44); Carbon Dioxide 24 mmol/L (22-29); Chloride 101 mmol/L (98-107); Globulin 3.5 g/dL (2.4-3.5); Glucose 97 mg/dL (70-105); Magnesium 1.8 mg/dL (1.6-2.6); Potassium 4.0 mmol/L (3.5-5.1); Sodium 136 mmol/L (136-145)
[2025-03-16 06:36] LABS: Anisocytosis SLIGHT = 6-15 cells HPF (0-5); Platelet Adequacy Comment Platelets Decreased; Smudge Cells 10.5 %
[2025-03-16] MEDS: Pantoprazole 40 MG VIAL IVP SCH (09:36)
[2025-03-16] MEDS: Gabapentin 300 MG CAP PO SCH (09:36)
[2025-03-17 07:21] VITALS: TEMP 98.6
[2025-03-19] MEDS ORDERED: Thiamine 100 MG TAB PO SCH (21:00)
== END 2025-03-17 10:05 | disposition home or self-care (01) | DRG 897 ==
LOC: ERS 18:46 → CCU 03-16 00:09 → IMCU/EMU 03-16 10:03
PROVIDERS: ADMIT Student in an Organized Health Care Education/Training Program; ATTEND Internal Medicine
DX: F10.239 Alcohol dependence with withdrawal, unspecified (principal); E87.20 Acidosis, unspecified; Y90.6 Blood alcohol level of 120-199 mg/100 ml; E80.6 Other disorders of bilirubin metabolism; G40.909 Epilepsy, unspecified, not intractable, without status epilepticus; F17.210 Nicotine dependence, cigarettes, uncomplicated; F19.10 Other psychoactive substance abuse, uncomplicated; K76.0 Fatty (change of) liver, not elsewhere classified; I10 Essential (primary) hypertension; Z79.899 Other long term (current) drug therapy; Z88.8 Allergy status to other drugs, medicaments and biological substances; Z91.018 Allergy to other foods; Z98.890 Other specified postprocedural states
CPT/HCPCS: 36415; 71045; 80053; 80307; 83605; 83690; 83735; 84100; 84484; 85025; 85610; 85730; 93005; J2060; J2405; J2470; J2560; J3411; J3475; J7120

== ENCOUNTER 2025-03-31 21:51 | Inpatient (IN) | payer OTHER ==
[2025-03-31] MEDS ORDERED: levETIRAcetam 500 MG (5 mL) VIAL ONE (22:20)
[2025-03-31 22:36] LABS: #Basophils 0.07 10x3/uL (0.0-0.2); #Eosinophils 0.08 10x3/uL (0.0-0.7); #Monocytes 0.24 10x3/uL (0.11-0.59); #Neutrophils 2.22 10x3/uL (1.40-6.50); %Basophils 1.4 % (0.0-1.0); %Eosinophils 1.6 % (0.0-10.0); %Lymphocytes 47.6 % (21.0-51.0); %Monocytes 4.8 % (0.0-10.0); %Neutrophils 44.6 % (42.0-75.0); Hematocrit 43.9 % (42.0-52.0); Hemoglobin 14.8 g/dL (14.0-18.0); Mean Corpuscular Hemoglobin 26.9 pg (27.0-31.0); Mean Corpuscular Volume 79.8 fL (78.0-98.0); Platelet Count 145 10x3/uL (130-400); Red Blood Cell (RBC) Count 5.50 mill/uL (4.70-6.10); White Blood Cell (WBC) Count 4.98 10x3/uL (4.8-10.8)
[2025-03-31 23:02] LABS: ALT (SGPT) 70 U/L (Less than 45); AST (SGOT) 117 U/L (11-34); Albumin 4.4 g/dL (3.1-4.5); Alkaline Phosphatase 121 U/L (40-110); Anion Gap 20 mmol/L (10-20); BUN (Urea Nitrogen) 7 mg/dL (8.9-20.6); Bilirubin, Total 0.6 mg/dL (0.3-1.2); Calc. Creatinine Clearance 0 mL/min (70-130); Calcium 8.6 mg/dL (7.8-10.44); Carbon Dioxide 24 mmol/L (22-29); Chloride 106 mmol/L (98-107); Globulin 4.1 g/dL (2.4-3.5); Glucose 119 mg/dL (70-105); Potassium 3.6 mmol/L (3.5-5.1); Sodium 146 mmol/L (136-145)
[2025-04-01 00:40] LABS: Acetaminophen Less than 10 mcg/mL (Less than 10); Salicylate Less than 8.0 mg/dL (Less than 8.0)
[2025-04-01 00:54] LABS: Cocaine Metabolite Screen Negative (Negative); THC/Cannabinoid Screen PRELIM POSITIVE (Negative); Tricyclic Screen Negative (Negative)
[2025-04-01] MEDS ORDERED: LORazepam 2 MG/ML SYR.(CARPUJECT) ONE (02:01)
[2025-04-01] MEDS ORDERED: Ondansetron PF 4 MG/2 ML Vial ONE (03:42)
[2025-04-01 04:49] VITALS: BMI 25.9
[2025-04-01] MEDS ORDERED: Electrolyte Replacement Protocol 1 EACH FS PRN (05:15)
[2025-04-01 06:54] LABS: ALT (SGPT) 60 U/L (Less than 45); AST (SGOT) 96 U/L (11-34); Albumin 3.8 g/dL (3.1-4.5); Alkaline Phosphatase 106 U/L (40-110); Anion Gap 16 mmol/L (10-20); BUN (Urea Nitrogen) 5 mg/dL (8.9-20.6); Bilirubin, Direct 0.3 mg/dL (0.1-0.3); Bilirubin, Total 0.6 mg/dL (0.3-1.2); Calc. Creatinine Clearance 180 mL/min (70-130); Calcium 8.1 mg/dL (7.8-10.44); Carbon Dioxide 25 mmol/L (22-29); Chloride 106 mmol/L (98-107); Globulin 3.4 g/dL (2.4-3.5); Glucose 91 mg/dL (70-105); Magnesium 1.5 mg/dL (1.6-2.6); Potassium 3.4 mmol/L (3.5-5.1); Sodium 144 mmol/L (136-145)
[2025-04-01 07:40] LABS: #Basophils 0.04 10x3/uL (0.0-0.2); #Eosinophils 0.05 10x3/uL (0.0-0.7); #Monocytes 0.25 10x3/uL (0.11-0.59); #Neutrophils 1.55 10x3/uL (1.40-6.50); %Basophils 1.1 % (0.0-1.0); %Eosinophils 1.4 % (0.0-10.0); %Lymphocytes 45.8 % (21.0-51.0); %Monocytes 7.2 % (0.0-10.0); %Neutrophils 44.5 % (42.0-75.0); Hematocrit 39.9 % (42.0-52.0); Hemoglobin 12.6 g/dL (14.0-18.0); Mean Corpuscular Hemoglobin 26.0 pg (27.0-31.0); Mean Corpuscular Volume 82.4 fL (78.0-98.0); Platelet Count 124 10x3/uL (130-400); Red Blood Cell (RBC) Count 4.84 mill/uL (4.70-6.10); White Blood Cell (WBC) Count 3.49 10x3/uL (4.8-10.8)
[2025-04-01] MEDS: Magnesium 2 GM/50 ML(in water) 2 GM in Premix 1 BAG IVPB SCH (10:03)
[2025-04-01 10:04] LABS: Platelet Adequacy Comment Platelets Decreased; Polychromasia SLIGHT = 2-3 cells HPF (0-2)
[2025-04-01] MEDS: levETIRAcetam 500 MG TAB PO SCH (10:04)
[2025-04-01] MEDS: Folic Acid 1 MG TAB PO SCH (10:04)
[2025-04-01] MEDS: Multivit, Therapeutic 1 TAB PO SCH (10:04)
[2025-04-01] MEDS: Ondansetron PF 4 MG/2 ML Vial IVP PRN (11:16)
[2025-04-01] MEDS: Acetaminophen 325 MG TAB PO PRN (15:27)
[2025-04-01] MEDS: Gabapentin 300 MG CAP PO SCH (20:29)
[2025-04-02 05:38] LABS: #Basophils Less than 0.03 10x3/uL (0.0-0.2); #Eosinophils 0.06 10x3/uL (0.0-0.7); #Monocytes 0.22 10x3/uL (0.11-0.59); #Neutrophils 1.10 10x3/uL (1.40-6.50); %Basophils 0.8 % (0.0-1.0); %Eosinophils 2.3 % (0.0-10.0); %Lymphocytes 47.2 % (21.0-51.0); %Monocytes 8.3 % (0.0-10.0); %Neutrophils 41.4 % (42.0-75.0); Hematocrit 36.6 % (42.0-52.0); Hemoglobin 11.6 g/dL (14.0-18.0); Mean Corpuscular Hemoglobin 26.0 pg (27.0-31.0); Mean Corpuscular Volume 81.9 fL (78.0-98.0); Platelet Count 95 10x3/uL (130-400); Red Blood Cell (RBC) Count 4.47 mill/uL (4.70-6.10); White Blood Cell (WBC) Count 2.65 10x3/uL (4.8-10.8)
[2025-04-02 06:17] LABS: ALT (SGPT) 47 U/L (Less than 45); AST (SGOT) 74 U/L (11-34); Albumin 3.5 g/dL (3.1-4.5); Alkaline Phosphatase 106 U/L (40-110); Anion Gap 12 mmol/L (10-20); BUN (Urea Nitrogen) 6 mg/dL (8.9-20.6); Bilirubin, Total 1.8 mg/dL (0.3-1.2); Calc. Creatinine Clearance 177 mL/min (70-130); Calcium 8.5 mg/dL (7.8-10.44); Carbon Dioxide 25 mmol/L (22-29); Chloride 105 mmol/L (98-107); Globulin 3.2 g/dL (2.4-3.5); Glucose 83 mg/dL (70-105); Magnesium 1.9 mg/dL (1.6-2.6); Potassium 4.0 mmol/L (3.5-5.1); Sodium 138 mmol/L (136-145)
[2025-04-02] MEDS: Magnesium 2 GM/50 ML(in water) 2 GM in Premix 1 BAG IVPB SCH (09:00)
[2025-04-03 05:28] LABS: #Basophils 0.03 10x3/uL (0.0-0.2); #Eosinophils 0.10 10x3/uL (0.0-0.7); #Monocytes 0.29 10x3/uL (0.11-0.59); #Neutrophils 1.73 10x3/uL (1.40-6.50); %Basophils 0.8 % (0.0-1.0); %Eosinophils 2.7 % (0.0-10.0); %Lymphocytes 40.9 % (21.0-51.0); %Monocytes 7.9 % (0.0-10.0); %Neutrophils 47.2 % (42.0-75.0); Hematocrit 37.0 % (42.0-52.0); Hemoglobin 12.2 g/dL (14.0-18.0); Mean Corpuscular Hemoglobin 26.8 pg (27.0-31.0); Mean Corpuscular Volume 81.1 fL (78.0-98.0); Platelet Count 91 10x3/uL (130-400); Red Blood Cell (RBC) Count 4.56 mill/uL (4.70-6.10); White Blood Cell (WBC) Count 3.67 10x3/uL (4.8-10.8)
[2025-04-03 06:02] LABS: ALT (SGPT) 53 U/L (Less than 45); AST (SGOT) 107 U/L (11-34); Albumin 3.3 g/dL (3.1-4.5); Alkaline Phosphatase 109 U/L (40-110); Anion Gap 12 mmol/L (10-20); BUN (Urea Nitrogen) 6 mg/dL (8.9-20.6); Bilirubin, Total 1.0 mg/dL (0.3-1.2); Calc. Creatinine Clearance 177 mL/min (70-130); Calcium 8.5 mg/dL (7.8-10.44); Carbon Dioxide 25 mmol/L (22-29); Chloride 104 mmol/L (98-107); Globulin 3.4 g/dL (2.4-3.5); Glucose 82 mg/dL (70-105); Magnesium 1.8 mg/dL (1.6-2.6); Potassium 3.4 mmol/L (3.5-5.1); Sodium 138 mmol/L (136-145)
[2025-04-03] MEDS: Magnesium 2 GM/50 ML(in water) 2 GM in Premix 1 BAG IVPB SCH (07:34)
[2025-04-03 07:35] VITALS: BP 128/83
[2025-04-03 09:17] VITALS: TEMP 98.2
[2025-04-04] MEDS ORDERED: Thiamine 100 MG TAB PO SCH (05:15)
== END 2025-04-03 11:09 | disposition home or self-care (01) | DRG 897 ==
LOC: ERS 21:51 → IMCU/EMU 04-01 03:50
PROVIDERS: ADMIT Internal Medicine; ATTEND Internal Medicine
PROC: XX20X89 Monitoring of Brain Electrical Activity, Computer-aided Detection and Notification, New Technology Group 9 (ICD-10-PCS; principal; 2025-04-01)
DX: F10.139 Alcohol abuse with withdrawal, unspecified (principal); R45.851 Suicidal ideations; Y90.8 Blood alcohol level of 240 mg/100 ml or more; F19.10 Other psychoactive substance abuse, uncomplicated; K70.30 Alcoholic cirrhosis of liver without ascites; F43.10 Post-traumatic stress disorder, unspecified; F12.90 Cannabis use, unspecified, uncomplicated; F41.9 Anxiety disorder, unspecified; E83.39 Other disorders of phosphorus metabolism; D53.9 Nutritional anemia, unspecified; K70.10 Alcoholic hepatitis without ascites; E87.6 Hypokalemia; I12.9 Hypertensive chronic kidney disease with stage 1 through stage 4 chronic kidney disease, or unspecified chronic kidney disease; N18.2 Chronic kidney disease, stage 2 (mild); E83.42 Hypomagnesemia; F32.A Depression, unspecified; G40.909 Epilepsy, unspecified, not intractable, without status epilepticus; R25.1 Tremor, unspecified; Z88.8 Allergy status to other drugs, medicaments and biological substances; Z87.891 Personal history of nicotine dependence
CPT/HCPCS: 36415; 70450; 80053; 80177; 80306; 80307; 82248; 82550; 83735; 84100; 85025; 93005; 96365; 96375; 96376; J1953; J2060; J2405; J3411; J3475; J7120

== ENCOUNTER 2025-04-05 07:07 | Inpatient (IN) | payer OTHER ==
[2025-04-05] MEDS ORDERED: Ondansetron PF 4 MG/2 ML Vial ONE (07:17)
[2025-04-05 07:33] LABS: #Basophils 0.05 10x3/uL (0.0-0.2); #Eosinophils 0.13 10x3/uL (0.0-0.7); #Monocytes 0.26 10x3/uL (0.11-0.59); #Neutrophils 1.73 10x3/uL (1.40-6.50); %Basophils 1.1 % (0.0-1.0); %Eosinophils 2.9 % (0.0-10.0); %Lymphocytes 51.5 % (21.0-51.0); %Monocytes 5.8 % (0.0-10.0); %Neutrophils 38.3 % (42.0-75.0); Hematocrit 40.7 % (42.0-52.0); Hemoglobin 13.1 g/dL (14.0-18.0); Mean Corpuscular Hemoglobin 26.3 pg (27.0-31.0); Mean Corpuscular Volume 81.7 fL (78.0-98.0); Platelet Count 122 10x3/uL (130-400); Red Blood Cell (RBC) Count 4.98 mill/uL (4.70-6.10); White Blood Cell (WBC) Count 4.52 10x3/uL (4.8-10.8)
[2025-04-05] MEDS ORDERED: levETIRAcetam 500 MG (5 mL) VIAL ONE (07:40)
[2025-04-05 07:47] LABS: Acetaminophen Less than 10 mcg/mL (Less than 10); Salicylate Less than 8.0 mg/dL (Less than 8.0)
[2025-04-05 07:48] LABS: ALT (SGPT) 119 U/L (Less than 45); AST (SGOT) 232 U/L (11-34); Albumin 4.0 g/dL (3.1-4.5); Alkaline Phosphatase 118 U/L (40-110); Anion Gap 21 mmol/L (10-20); BUN (Urea Nitrogen) 6 mg/dL (8.9-20.6); Bilirubin, Total 0.5 mg/dL (0.3-1.2); Calc. Creatinine Clearance 0 mL/min (70-130); Calcium 8.7 mg/dL (7.8-10.44); Carbon Dioxide 19 mmol/L (22-29); Chloride 106 mmol/L (98-107); Globulin 4.2 g/dL (2.4-3.5); Glucose 96 mg/dL (70-105); Potassium 3.7 mmol/L (3.5-5.1); Sodium 142 mmol/L (136-145)
[2025-04-05 09:43] LABS: Bacteria/HPF None Seen HPF (None Seen); CAUTI Indications for Culture Alt mental st,lethar; Glucose, Urine (Dipstick) Normal (Negative); Leukocyte Negative Leu/uL (Negative); Protein, Urine (Dipstick) Negative (Neg-Trace); RBC/HPF 0-3 HPF (0-3); Specific Gravity, Urine 1.007 (1.002-1.036); WBC/HPF None Seen HPF (0-3)
[2025-04-05 09:45] LABS: Urine Culture Reflex No No
[2025-04-05 09:51] LABS: Cocaine Metabolite Screen Negative (Negative); THC/Cannabinoid Screen PRELIM POSITIVE (Negative); Tricyclic Screen Negative (Negative)
[2025-04-05] MEDS ORDERED: Ondansetron PF 4 MG/2 ML Vial IVP PRN (11:19)
[2025-04-05] MEDS ORDERED: Acetaminophen 500 MG TAB PO PRN (11:19)
[2025-04-05] MEDS ORDERED: Electrolyte Replacement Protocol 1 EACH FS SCH ×2 (11:19)
[2025-04-05 12:09] LABS: Magnesium 1.4 mg/dL (1.6-2.6)
[2025-04-05 12:12] VITALS: BMI 28.2
[2025-04-05 12:14] VITALS: BP 109/81
[2025-04-05] MEDS ORDERED: Famotidine/PF 20 mg/2ml Vial SLOW IVP SCH (21:00)
[2025-04-05] MEDS ORDERED: levETIRAcetam 500 MG (5 mL) VIAL SLOW IVP SCH (21:00)
[2025-04-06] MEDS ORDERED: Folic Acid 1 MG TAB PO SCH (09:00)
[2025-04-06] MEDS ORDERED: Multivit, Therapeutic 1 TAB PO SCH (09:00)
[2025-04-08] MEDS ORDERED: Thiamine 100 MG TAB PO SCH (12:00)
== END 2025-04-05 14:00 | disposition left against medical advice (07) | DRG 918 ==
LOC: ERS 07:07 → ERHOLD 08:38
PROVIDERS: ADMIT Family Medicine; ATTEND Family Medicine
PROC: HZ2ZZZZ Detoxification Services for Substance Abuse Treatment (ICD-10-PCS; principal; 2025-04-05)
DX: T51.91XA Toxic effect of unspecified alcohol, accidental (unintentional), initial encounter (principal); G40.509 Epileptic seizures related to external causes, not intractable, without status epilepticus; F10.239 Alcohol dependence with withdrawal, unspecified; F10.229 Alcohol dependence with intoxication, unspecified; I12.9 Hypertensive chronic kidney disease with stage 1 through stage 4 chronic kidney disease, or unspecified chronic kidney disease; N18.2 Chronic kidney disease, stage 2 (mild); K70.10 Alcoholic hepatitis without ascites; G40.909 Epilepsy, unspecified, not intractable, without status epilepticus; Z98.890 Other specified postprocedural states; Z96.22 Myringotomy tube(s) status; F41.9 Anxiety disorder, unspecified; F32.A Depression, unspecified; F17.210 Nicotine dependence, cigarettes, uncomplicated; Z88.8 Allergy status to other drugs, medicaments and biological substances; Y90.8 Blood alcohol level of 240 mg/100 ml or more
CPT/HCPCS: 36415; 80053; 80306; 80307; 81001; 83735; 84100; 85025; 96374; 96375; J1953; J2405; J2560

== ENCOUNTER 2025-04-10 04:46 | Emergency (ER) | payer OTHER ==
[2025-04-10 06:45] LABS: Carbamazepine-Tegretol Less than 0.4 ug/mL (4.0-12.0)
[2025-04-10] MEDS ORDERED: Folic Acid 1 MG TAB ONE (07:09)
[2025-04-10] MEDS ORDERED: Multivit, Therapeutic 1 TAB ONE (07:09)
== END 2025-04-10 08:42 | disposition home or self-care (01) ==
LOC: ERS 04:46
DX: F10.129 Alcohol abuse with intoxication, unspecified (principal); I10 Essential (primary) hypertension; F17.210 Nicotine dependence, cigarettes, uncomplicated
CPT/HCPCS: 36415; 70450; 80156; 80164; 96374; J3411

== ENCOUNTER 2025-05-20 00:31 | Inpatient (IN) | payer OTHER ==
[2025-05-20 02:31] LABS: #Basophils 0.05 10x3/uL (0.0-0.2); #Eosinophils 0.04 10x3/uL (0.0-0.7); #Monocytes 0.32 10x3/uL (0.11-0.59); #Neutrophils 3.81 10x3/uL (1.40-6.50); %Basophils 0.8 % (0.0-1.0); %Eosinophils 0.6 % (0.0-10.0); %Lymphocytes 33.9 % (21.0-51.0); %Monocytes 5.0 % (0.0-10.0); %Neutrophils 59.5 % (42.0-75.0); Hematocrit 39.9 % (42.0-52.0); Hemoglobin 13.3 g/dL (14.0-18.0); Mean Corpuscular Hemoglobin 26.3 pg (27.0-31.0); Mean Corpuscular Volume 79.0 fL (78.0-98.0); Platelet Count 155 10x3/uL (130-400); Red Blood Cell (RBC) Count 5.05 mill/uL (4.70-6.10); White Blood Cell (WBC) Count 6.40 10x3/uL (4.8-10.8)
[2025-05-20 02:49] LABS: ALT (SGPT) 41 U/L (Less than 45); AST (SGOT) 53 U/L (11-34); Acetaminophen Less than 10 mcg/mL (Less than 10); Albumin 4.1 g/dL (3.1-4.5); Alkaline Phosphatase 92 U/L (40-110); Anion Gap 24 mmol/L (10-20); BUN (Urea Nitrogen) 10 mg/dL (8.9-20.6); Bilirubin, Total 0.6 mg/dL (0.3-1.2); Calc. Creatinine Clearance 0 mL/min (70-130); Calcium 8.8 mg/dL (7.8-10.44); Carbon Dioxide 24 mmol/L (22-29); Chloride 104 mmol/L (98-107); Globulin 3.9 g/dL (2.4-3.5); Glucose 106 mg/dL (70-105); Magnesium 1.6 mg/dL (1.6-2.6); Potassium 3.5 mmol/L (3.5-5.1); Salicylate Less than 8.0 mg/dL (Less than 8.0); Sodium 148 mmol/L (136-145)
[2025-05-20 09:20] LABS: Cocaine Metabolite Screen Negative (Negative); THC/Cannabinoid Screen PRELIM POSITIVE (Negative); Tricyclic Screen Negative (Negative)
[2025-05-20] MEDS ORDERED: Electrolyte Replacement Protocol 1 EACH FS SCH (09:40)
[2025-05-20] MEDS ORDERED: Acetaminophen 500 MG TAB PO PRN (09:40)
[2025-05-20] MEDS ORDERED: hydrALAZINE 20 MG/ML VIAL SLOW IVP PRN (09:40)
[2025-05-20] MEDS ORDERED: Ondansetron PF 4 MG/2 ML Vial IVP PRN (09:40)
[2025-05-20] MEDS: Multivitamins, Adult 10 ML, Thiamine HCl 100 MG, Folic Acid 1 MG in Dextrose 5 %-0.45 %... IV SCH (11:58)
[2025-05-20 12:16] VITALS: BMI 24.9
[2025-05-20] MEDS: FLU (Fluarix Triv) 25-26 (6MOS UP)/PF 45 MCG/0.5 ML Syringe IM ONE (14:16)
[2025-05-20] MEDS: Magnesium 2 GM/50 ML(in water) 2 GM in Premix 1 BAG IVPB SCH (14:27)
[2025-05-20] MEDS: Gabapentin 300 MG CAP PO SCH (22:27)
[2025-05-20] MEDS: Famotidine 20 MG TAB PO SCH (22:27)
[2025-05-20] MEDS: levETIRAcetam 500 MG TAB PO SCH (22:27)
[2025-05-21 05:07] LABS: ALT (SGPT) 29 U/L (Less than 45); AST (SGOT) 39 U/L (11-34); Albumin 3.7 g/dL (3.1-4.5); Alkaline Phosphatase 73 U/L (40-110); Anion Gap 11 mmol/L (10-20); BUN (Urea Nitrogen) 10 mg/dL (8.9-20.6); Bilirubin, Total 1.2 mg/dL (0.3-1.2); Calc. Creatinine Clearance 148 mL/min (70-130); Calcium 8.6 mg/dL (7.8-10.44); Carbon Dioxide 27 mmol/L (22-29); Chloride 105 mmol/L (98-107); Globulin 3.2 g/dL (2.4-3.5); Glucose 90 mg/dL (70-105); Potassium 3.6 mmol/L (3.5-5.1); Sodium 139 mmol/L (136-145)
[2025-05-21 05:35] LABS: #Basophils Less than 0.03 10x3/uL (0.0-0.2); #Eosinophils 0.04 10x3/uL (0.0-0.7); #Monocytes 0.28 10x3/uL (0.11-0.59); #Neutrophils 1.81 10x3/uL (1.40-6.50); %Basophils 0.5 % (0.0-1.0); %Eosinophils 1.1 % (0.0-10.0); %Lymphocytes 42.8 % (21.0-51.0); %Monocytes 7.4 % (0.0-10.0); %Neutrophils 48.2 % (42.0-75.0); Hematocrit 33.7 % (42.0-52.0); Hemoglobin 11.1 g/dL (14.0-18.0); Mean Corpuscular Hemoglobin 26.6 pg (27.0-31.0); Mean Corpuscular Volume 80.6 fL (78.0-98.0); Platelet Count 107 10x3/uL (130-400); Red Blood Cell (RBC) Count 4.18 mill/uL (4.70-6.10); White Blood Cell (WBC) Count 3.76 10x3/uL (4.8-10.8)
[2025-05-21] MEDS: Folic Acid 1 MG TAB PO SCH (08:46)
[2025-05-21] MEDS: Multivit, Therapeutic 1 TAB PO SCH (08:47)
[2025-05-22 04:42] LABS: #Basophils Less than 0.03 10x3/uL (0.0-0.2); #Eosinophils 0.11 10x3/uL (0.0-0.7); #Monocytes 0.33 10x3/uL (0.11-0.59); #Neutrophils 2.27 10x3/uL (1.40-6.50); %Basophils 0.5 % (0.0-1.0); %Eosinophils 2.6 % (0.0-10.0); %Lymphocytes 36.5 % (21.0-51.0); %Monocytes 7.7 % (0.0-10.0); %Neutrophils 52.7 % (42.0-75.0); Hematocrit 36.0 % (42.0-52.0); Hemoglobin 12.0 g/dL (14.0-18.0); Mean Corpuscular Hemoglobin 26.7 pg (27.0-31.0); Mean Corpuscular Volume 80.0 fL (78.0-98.0); Platelet Count 105 10x3/uL (130-400); Red Blood Cell (RBC) Count 4.50 mill/uL (4.70-6.10); White Blood Cell (WBC) Count 4.30 10x3/uL (4.8-10.8)
[2025-05-22 05:19] LABS: ALT (SGPT) 33 U/L (Less than 45); AST (SGOT) 39 U/L (11-34); Albumin 4.0 g/dL (3.1-4.5); Alkaline Phosphatase 82 U/L (40-110); Anion Gap 12 mmol/L (10-20); BUN (Urea Nitrogen) 7 mg/dL (8.9-20.6); Bilirubin, Total 0.8 mg/dL (0.3-1.2); Calc. Creatinine Clearance 163 mL/min (70-130); Calcium 9.1 mg/dL (7.8-10.44); Carbon Dioxide 26 mmol/L (22-29); Chloride 105 mmol/L (98-107); Globulin 3.6 g/dL (2.4-3.5); Glucose 87 mg/dL (70-105); Magnesium 1.5 mg/dL (1.6-2.6); Potassium 3.8 mmol/L (3.5-5.1); Sodium 139 mmol/L (136-145)
[2025-05-22 08:27] VITALS: BP 122/80; TEMP 98.2
[2025-05-22] MEDS: Magnesium 2 GM/50 ML(in water) 2 GM in Premix 1 BAG IVPB SCH (08:31)
[2025-05-23] MEDS ORDERED: Thiamine 100 MG TAB PO SCH (10:00)
== END 2025-05-22 11:58 | disposition home or self-care (01) | DRG 897 ==
LOC: ERS 00:31 → 2NO 08:28 → OBSVTOIN 05-21 16:23
PROVIDERS: ADMIT Family Medicine; ATTEND Internal Medicine
PROC: HZ2ZZZZ Detoxification Services for Substance Abuse Treatment (ICD-10-PCS; principal; 2025-05-21)
DX: F10.239 Alcohol dependence with withdrawal, unspecified (principal); F10.20 Alcohol dependence, uncomplicated; G62.9 Polyneuropathy, unspecified; F41.9 Anxiety disorder, unspecified; F32.A Depression, unspecified; F12.10 Cannabis abuse, uncomplicated; F17.210 Nicotine dependence, cigarettes, uncomplicated; K70.10 Alcoholic hepatitis without ascites; N18.2 Chronic kidney disease, stage 2 (mild); I12.9 Hypertensive chronic kidney disease with stage 1 through stage 4 chronic kidney disease, or unspecified chronic kidney disease; F19.10 Other psychoactive substance abuse, uncomplicated; Z98.890 Other specified postprocedural states; Z91.018 Allergy to other foods; Z88.8 Allergy status to other drugs, medicaments and biological substances; Z79.899 Other long term (current) drug therapy; Z91.51 Personal history of suicidal behavior
CPT/HCPCS: 36415; 70450; 72125; 80053; 80177; 80306; 80307; 83735; 85025; 93005; 96372; 96374; 96375; 96376; G0378; J2060; J3411; J3475; J7030; J7042

== ENCOUNTER 2025-05-25 18:52 | Inpatient (IN) | payer OTHER ==
[2025-05-25 19:16] LABS: #Basophils 0.04 10x3/uL (0.0-0.2); #Eosinophils 0.05 10x3/uL (0.0-0.7); #Monocytes 0.18 10x3/uL (0.11-0.59); #Neutrophils 5.19 10x3/uL (1.40-6.50); %Basophils 0.5 % (0.0-1.0); %Eosinophils 0.7 % (0.0-10.0); %Lymphocytes 26.9 % (21.0-51.0); %Monocytes 2.4 % (0.0-10.0); %Neutrophils 69.1 % (42.0-75.0); Hematocrit 40.7 % (42.0-52.0); Hemoglobin 13.5 g/dL (14.0-18.0); Mean Corpuscular Hemoglobin 26.4 pg (27.0-31.0); Mean Corpuscular Volume 79.5 fL (78.0-98.0); Platelet Count 128 10x3/uL (130-400); Red Blood Cell (RBC) Count 5.12 mill/uL (4.70-6.10); White Blood Cell (WBC) Count 7.51 10x3/uL (4.8-10.8)
[2025-05-25 19:34] LABS: ALT (SGPT) 69 U/L (Less than 45); AST (SGOT) 74 U/L (11-34); Albumin 4.2 g/dL (3.1-4.5); Alkaline Phosphatase 96 U/L (40-110); Anion Gap 29 mmol/L (10-20); BUN (Urea Nitrogen) 12 mg/dL (8.9-20.6); Bilirubin, Total 0.7 mg/dL (0.3-1.2); Calc. Creatinine Clearance 0 mL/min (70-130); Calcium 9.0 mg/dL (7.8-10.44); Carbon Dioxide 20 mmol/L (22-29); Chloride 102 mmol/L (98-107); Globulin 4.1 g/dL (2.4-3.5); Glucose 83 mg/dL (70-105); Lipase 35 U/L (8-78); Magnesium 1.5 mg/dL (1.6-2.6); Potassium 4.1 mmol/L (3.5-5.1); Sodium 147 mmol/L (136-145)
[2025-05-25 19:35] LABS: Acetaminophen Less than 10 mcg/mL (Less than 10); Salicylate Less than 8.0 mg/dL (Less than 8.0)
[2025-05-25] MEDS ORDERED: Ondansetron PF 4 MG/2 ML Vial IVP PRN (20:58)
[2025-05-25] MEDS ORDERED: Calcium Carbonate 500 MG ChewTAB PO PRN (20:58)
[2025-05-25] MEDS ORDERED: Guaifenesin DM 100-10/5 ML UDCUP PO PRN (20:58)
[2025-05-25] MEDS ORDERED: Magnesium 2 GM/50 ML BAG (IN WATER) ONE (21:01)
[2025-05-25 21:30] LABS: Cocaine Metabolite Screen Negative (Negative); THC/Cannabinoid Screen PRELIM POSITIVE (Negative); Tricyclic Screen Negative (Negative)
[2025-05-25 23:23] VITALS: BMI 26.4
[2025-05-25] MEDS ORDERED: FLU (Fluarix Triv) 25-26 (6MOS UP)/PF 45 MCG/0.5 ML Syringe IM ONE (23:45)
[2025-05-25] MEDS ORDERED: PNEUMOC 20-VAL CONJ-DIP CRM/PF 0.5 ML SYRINGE IM ONE (23:45)
[2025-05-26 02:32] VITALS: BP 132/89
[2025-05-26] MEDS ORDERED: Acetaminophen 325 MG TAB ONE (02:39)
[2025-05-26] MEDS: Acetaminophen 325 MG TAB PO SCH (02:50)
[2025-05-26] MEDS ORDERED: levETIRAcetam 500 MG TAB PO SCH (09:00)
[2025-05-26] MEDS ORDERED: Gabapentin 300 MG CAP PO SCH (09:00)
[2025-05-26] MEDS ORDERED: Multivit, Therapeutic 1 TAB PO SCH (09:00)
[2025-05-26] MEDS ORDERED: Folic Acid 1 MG TAB PO SCH (09:00)
[2025-05-28] MEDS ORDERED: Thiamine 100 MG TAB PO SCH (21:00)
== END 2025-05-26 03:47 | disposition left against medical advice (07) | DRG 894 ==
LOC: ERS 18:52 → ERHOLD 21:05
PROVIDERS: ADMIT Internal Medicine; ATTEND Internal Medicine
DX: F10.230 Alcohol dependence with withdrawal, uncomplicated (principal); Y90.8 Blood alcohol level of 240 mg/100 ml or more; Z88.8 Allergy status to other drugs, medicaments and biological substances; K70.10 Alcoholic hepatitis without ascites; Z98.890 Other specified postprocedural states; F12.10 Cannabis abuse, uncomplicated; R56.9 Unspecified convulsions; Z53.29 Procedure and treatment not carried out because of patient's decision for other reasons; I10 Essential (primary) hypertension; F41.9 Anxiety disorder, unspecified; F32.A Depression, unspecified; Z79.899 Other long term (current) drug therapy
CPT/HCPCS: 36415; 71045; 80053; 80306; 80307; 82248; 83690; 83735; 84484; 85025; 93005; J2060; J3411; J3475

== ENCOUNTER 2025-06-25 00:44 | Emergency (ER) | payer OTHER ==
[2025-06-25 01:05] LABS: #Basophils 0.04 10x3/uL (0.0-0.2); #Eosinophils 0.15 10x3/uL (0.0-0.7); #Monocytes 0.26 10x3/uL (0.11-0.59); #Neutrophils 2.22 10x3/uL (1.40-6.50); %Basophils 0.9 % (0.0-1.0); %Eosinophils 3.3 % (0.0-10.0); %Lymphocytes 40.9 % (21.0-51.0); %Monocytes 5.7 % (0.0-10.0); %Neutrophils 48.8 % (42.0-75.0); Hematocrit 38.3 % (42.0-52.0); Hemoglobin 12.3 g/dL (14.0-18.0); Mean Corpuscular Hemoglobin 26.6 pg (27.0-31.0); Mean Corpuscular Volume 82.7 fL (78.0-98.0); Platelet Count 178 10x3/uL (130-400); Red Blood Cell (RBC) Count 4.63 mill/uL (4.70-6.10); White Blood Cell (WBC) Count 4.55 10x3/uL (4.8-10.8)
[2025-06-25 01:23] LABS: Acetaminophen Less than 10 mcg/mL (Less than 10); Salicylate Less than 8.0 mg/dL (Less than 8.0)
[2025-06-25 01:24] LABS: ALT (SGPT) 41 U/L (Less than 45); AST (SGOT) 54 U/L (11-34); Albumin 4.4 g/dL (3.1-4.5); Alkaline Phosphatase 99 U/L (40-110); Anion Gap 19 mmol/L (10-20); BUN (Urea Nitrogen) 6 mg/dL (8.9-20.6); Bilirubin, Total 0.3 mg/dL (0.3-1.2); Calc. Creatinine Clearance 0 mL/min (70-130); Calcium 8.9 mg/dL (7.8-10.44); Carbon Dioxide 23 mmol/L (22-29); Chloride 109 mmol/L (98-107); Globulin 4.0 g/dL (2.4-3.5); Glucose 97 mg/dL (70-105); Potassium 3.7 mmol/L (3.5-5.1); Sodium 147 mmol/L (136-145)
[2025-06-25 02:07] LABS: Cocaine Metabolite Screen Negative (Negative); THC/Cannabinoid Screen PRELIM POSITIVE (Negative); Tricyclic Screen Negative (Negative)
== END 2025-06-25 06:35 | disposition home or self-care (01) ==
LOC: ERS 00:44
DX: F10.129 Alcohol abuse with intoxication, unspecified (principal); Y90.8 Blood alcohol level of 240 mg/100 ml or more; I10 Essential (primary) hypertension; F17.210 Nicotine dependence, cigarettes, uncomplicated
CPT/HCPCS: 70450; 80053; 80306; 80307; 85025; 93005

== ENCOUNTER 2025-07-05 21:55 | Inpatient (IN) | payer OTHER ==
[2025-07-05 22:11] LABS: #Basophils 0.07 10x3/uL (0.0-0.2); #Eosinophils 0.17 10x3/uL (0.0-0.7); #Monocytes 0.42 10x3/uL (0.11-0.59); #Neutrophils 3.50 10x3/uL (1.40-6.50); %Basophils 0.9 % (0.0-1.0); %Eosinophils 2.2 % (0.0-10.0); %Lymphocytes 45.8 % (21.0-51.0); %Monocytes 5.4 % (0.0-10.0); %Neutrophils 45.4 % (42.0-75.0); Hematocrit 41.4 % (42.0-52.0); Hemoglobin 13.4 g/dL (14.0-18.0); Mean Corpuscular Hemoglobin 26.9 pg (27.0-31.0); Mean Corpuscular Volume 83.0 fL (78.0-98.0); Platelet Count 232 10x3/uL (130-400); Red Blood Cell (RBC) Count 4.99 mill/uL (4.70-6.10); White Blood Cell (WBC) Count 7.71 10x3/uL (4.8-10.8)
[2025-07-05 22:26] LABS: ALT (SGPT) 60 U/L (Less than 45); AST (SGOT) 61 U/L (11-34); Albumin 4.5 g/dL (3.1-4.5); Alkaline Phosphatase 107 U/L (40-110); Anion Gap 18 mmol/L (10-20); BUN (Urea Nitrogen) 6 mg/dL (8.9-20.6); Bilirubin, Total 0.3 mg/dL (0.3-1.2); Calc. Creatinine Clearance 0 mL/min (70-130); Calcium 9.0 mg/dL (7.8-10.44); Carbon Dioxide 26 mmol/L (22-29); Chloride 107 mmol/L (98-107); Globulin 3.8 g/dL (2.4-3.5); Glucose 114 mg/dL (70-105); Potassium 3.7 mmol/L (3.5-5.1); Sodium 147 mmol/L (136-145)
[2025-07-05] MEDS ORDERED: Famotidine/PF 20 mg/2ml Vial ONE (22:56)
[2025-07-06 00:14] LABS: Lipase 72 U/L (8-78); Magnesium 1.9 mg/dL (1.6-2.6)
[2025-07-06 00:15] LABS: Acetaminophen Less than 10 mcg/mL (Less than 10); Salicylate Less than 8.0 mg/dL (Less than 8.0)
[2025-07-06 02:56] VITALS: BMI 26.4
[2025-07-06] MEDS ORDERED: Calcium Carbonate 500 MG ChewTAB PO PRN (02:57)
[2025-07-06] MEDS ORDERED: Acetaminophen 325 MG TAB PO PRN (02:57)
[2025-07-06] MEDS ORDERED: Electrolyte Replacement Protocol 1 EACH FS SCH (03:00)
[2025-07-06] MEDS ORDERED: Magnesium 2 GM/50 ML(in water) 2 GM in Premix 1 BAG IVPB PRN (03:15)
[2025-07-06] MEDS ORDERED: PHOS-NAK 1 PKT PACK PO PRN (03:15)
[2025-07-06] MEDS ORDERED: Potassium Chloride 20 MEQ in Premix 1 BAG IVPB PRN (03:15)
[2025-07-06 06:30] LABS: #Basophils 0.06 10x3/uL (0.0-0.2); #Eosinophils 0.10 10x3/uL (0.0-0.7); #Monocytes 0.39 10x3/uL (0.11-0.59); #Neutrophils 2.37 10x3/uL (1.40-6.50); %Basophils 1.0 % (0.0-1.0); %Eosinophils 1.7 % (0.0-10.0); %Lymphocytes 49.0 % (21.0-51.0); %Monocytes 6.8 % (0.0-10.0); %Neutrophils 41.2 % (42.0-75.0); Hematocrit 37.6 % (42.0-52.0); Hemoglobin 12.0 g/dL (14.0-18.0); Mean Corpuscular Hemoglobin 26.8 pg (27.0-31.0); Mean Corpuscular Volume 84.1 fL (78.0-98.0); Platelet Count 186 10x3/uL (130-400); Red Blood Cell (RBC) Count 4.47 mill/uL (4.70-6.10); White Blood Cell (WBC) Count 5.77 10x3/uL (4.8-10.8)
[2025-07-06 06:52] LABS: ALT (SGPT) 47 U/L (Less than 45); AST (SGOT) 42 U/L (11-34); Albumin 3.7 g/dL (3.1-4.5); Alkaline Phosphatase 86 U/L (40-110); Anion Gap 14 mmol/L (10-20); BUN (Urea Nitrogen) 8 mg/dL (8.9-20.6); Bilirubin, Total 0.3 mg/dL (0.3-1.2); Calc. Creatinine Clearance 145 mL/min (70-130); Calcium 8.2 mg/dL (7.8-10.44); Carbon Dioxide 26 mmol/L (22-29); Chloride 109 mmol/L (98-107); Globulin 3.1 g/dL (2.4-3.5); Glucose 98 mg/dL (70-105); Potassium 3.6 mmol/L (3.5-5.1); Sodium 145 mmol/L (136-145)
[2025-07-06] MEDS: Gabapentin 300 MG CAP PO SCH (08:15)
[2025-07-06] MEDS: Folic Acid 1 MG TAB PO SCH (08:15)
[2025-07-06] MEDS: levETIRAcetam 500 MG TAB PO SCH (08:16)
[2025-07-06] MEDS: Thiamine 100 MG TAB PO SCH (08:16)
[2025-07-06] MEDS: Ondansetron PF 4 MG/2 ML Vial IVP PRN (13:22)
[2025-07-06 14:51] VITALS: BP 159/103; TEMP 99.9
[2025-07-06] MEDS ORDERED: Multivit, Therapeutic 1 TAB PO SCH (21:00)
[2025-07-07] MEDS ORDERED: PNEUMOC 20-VAL CONJ-DIP CRM/PF 0.5 ML SYRINGE IM ONE (09:00)
== END 2025-07-06 14:57 | disposition home or self-care (01) | DRG 897 ==
LOC: ERS 21:55 → T4-A 07-06 01:51
PROVIDERS: ADMIT Student in an Organized Health Care Education/Training Program; ATTEND Internal Medicine
PROC: HZ2ZZZZ Detoxification Services for Substance Abuse Treatment (ICD-10-PCS; principal; 2025-07-06)
DX: F10.220 Alcohol dependence with intoxication, uncomplicated (principal); I10 Essential (primary) hypertension; G40.909 Epilepsy, unspecified, not intractable, without status epilepticus; G62.9 Polyneuropathy, unspecified; F12.10 Cannabis abuse, uncomplicated; F17.210 Nicotine dependence, cigarettes, uncomplicated; K70.10 Alcoholic hepatitis without ascites; F43.10 Post-traumatic stress disorder, unspecified; F31.9 Bipolar disorder, unspecified; R16.2 Hepatomegaly with splenomegaly, not elsewhere classified; F41.9 Anxiety disorder, unspecified; Z98.890 Other specified postprocedural states; Z88.8 Allergy status to other drugs, medicaments and biological substances
CPT/HCPCS: 36415; 70450; 72125; 72128; 80053; 80307; 83690; 83735; 85025; 93005; 96365; 96366; 96375; J1308; J2405; J3411; J7120

== ENCOUNTER 2025-08-04 21:22 | Inpatient (IN) | payer OTHER ==
[2025-08-04 22:02] LABS: #Basophils 0.05 10x3/uL (0.0-0.2); #Eosinophils 0.08 10x3/uL (0.0-0.7); #Monocytes 0.24 10x3/uL (0.11-0.59); #Neutrophils 2.55 10x3/uL (1.40-6.50); %Basophils 1.0 % (0.0-1.0); %Eosinophils 1.6 % (0.0-10.0); %Lymphocytes 42.0 % (21.0-51.0); %Monocytes 4.7 % (0.0-10.0); %Neutrophils 50.3 % (42.0-75.0); Hematocrit 38.1 % (42.0-52.0); Hemoglobin 12.7 g/dL (14.0-18.0); Mean Corpuscular Hemoglobin 27.5 pg (27.0-31.0); Mean Corpuscular Volume 82.5 fL (78.0-98.0); Platelet Count 123 10x3/uL (130-400); Red Blood Cell (RBC) Count 4.62 mill/uL (4.70-6.10); White Blood Cell (WBC) Count 5.07 10x3/uL (4.8-10.8)
[2025-08-04 22:17] LABS: ALT (SGPT) 21 U/L (Less than 45); AST (SGOT) 39 U/L (11-34); Albumin 4.1 g/dL (3.1-4.5); Alkaline Phosphatase 102 U/L (40-110); Anion Gap 16 mmol/L (10-20); BUN (Urea Nitrogen) 4 mg/dL (8.9-20.6); Bilirubin, Total 0.4 mg/dL (0.3-1.2); CK (CPK) 129 U/L (30-200); Calc. Creatinine Clearance 0 mL/min (70-130); Calcium 8.2 mg/dL (7.8-10.44); Carbon Dioxide 26 mmol/L (22-29); Chloride 111 mmol/L (98-107); Globulin 3.1 g/dL (2.4-3.5); Glucose 99 mg/dL (70-105); Lipase 99 U/L (8-78); Magnesium 2.1 mg/dL (1.6-2.6); Potassium 3.2 mmol/L (3.5-5.1); Sodium 150 mmol/L (136-145)
[2025-08-04 22:18] LABS: Acetaminophen Less than 10 mcg/mL (Less than 10); Salicylate Less than 8.0 mg/dL (Less than 8.0)
[2025-08-05] MEDS ORDERED: Ondansetron PF 4 MG/2 ML Vial ONE (08:23)
[2025-08-05] MEDS ORDERED: Electrolyte Replacement Protocol 1 EACH FS SCH (08:30)
[2025-08-05] MEDS ORDERED: PHOS-NAK 1 PKT PACK PO PRN (08:45)
[2025-08-05] MEDS ORDERED: Potassium Chloride 20 MEQ in Premix 1 BAG IVPB PRN (08:45)
[2025-08-05] MEDS ORDERED: Magnesium Sulfate In Water 4 GM in Premix 1 BAG IVPB PRN (08:45)
[2025-08-05 08:52] LABS: #Basophils 0.03 10x3/uL (0.0-0.2); #Eosinophils 0.07 10x3/uL (0.0-0.7); #Monocytes 0.35 10x3/uL (0.11-0.59); #Neutrophils 2.42 10x3/uL (1.40-6.50); %Basophils 0.6 % (0.0-1.0); %Eosinophils 1.4 % (0.0-10.0); %Lymphocytes 44.1 % (21.0-51.0); %Monocytes 6.8 % (0.0-10.0); %Neutrophils 46.7 % (42.0-75.0); Hematocrit 40.6 % (42.0-52.0); Hemoglobin 13.1 g/dL (14.0-18.0); Mean Corpuscular Hemoglobin 27.3 pg (27.0-31.0); Mean Corpuscular Volume 84.8 fL (78.0-98.0); Platelet Count 126 10x3/uL (130-400); Red Blood Cell (RBC) Count 4.79 mill/uL (4.70-6.10); White Blood Cell (WBC) Count 5.17 10x3/uL (4.8-10.8)
[2025-08-05 09:16] LABS: ALT (SGPT) 20 U/L (Less than 45); AST (SGOT) 48 U/L (11-34); Albumin 4.0 g/dL (3.1-4.5); Alkaline Phosphatase 107 U/L (40-110); Anion Gap 17 mmol/L (10-20); BUN (Urea Nitrogen) 6 mg/dL (8.9-20.6); Bilirubin, Direct 0.2 mg/dL (0.1-0.3); Bilirubin, Total 0.5 mg/dL (0.3-1.2); Calc. Creatinine Clearance 0 mL/min (70-130); Calcium 8.3 mg/dL (7.8-10.44); Carbon Dioxide 27 mmol/L (22-29); Chloride 109 mmol/L (98-107); Globulin 3.5 g/dL (2.4-3.5); Glucose 92 mg/dL (70-105); Magnesium 1.9 mg/dL (1.6-2.6); Potassium 4.0 mmol/L (3.5-5.1); Sodium 149 mmol/L (136-145)
[2025-08-05 09:21] VITALS: BP 126/87
[2025-08-05] MEDS ORDERED: Folic Acid 1 MG TAB ONE (09:28)
[2025-08-05] MEDS ORDERED: Gabapentin 300 MG CAP ONE (09:28)
[2025-08-05] MEDS ORDERED: Multivit, Therapeutic 1 TAB ONE ×2 (09:28→09:29)
[2025-08-05] MEDS ORDERED: levETIRAcetam 500 MG TAB ONE (09:31)
[2025-08-05] MEDS: Folic Acid 1 MG TAB PO SCH (09:41)
[2025-08-05] MEDS: Gabapentin 300 MG CAP PO SCH (09:41)
[2025-08-05] MEDS: levETIRAcetam 500 MG TAB PO SCH (09:43)
[2025-08-05] MEDS: Multivit, Therapeutic 1 TAB PO SCH (09:43)
[2025-08-05 14:51] LABS: Cocaine Metabolite Screen Negative (Negative); THC/Cannabinoid Screen PRELIM POSITIVE (Negative); Tricyclic Screen Negative (Negative)
[2025-08-05] MEDS: Pantoprazole 40 MG VIAL IVP SCH (15:34)
[2025-08-06 04:48] LABS: #Basophils 0.03 10x3/uL (0.0-0.2); #Eosinophils 0.07 10x3/uL (0.0-0.7); #Monocytes 0.31 10x3/uL (0.11-0.59); #Neutrophils 1.79 10x3/uL (1.40-6.50); %Basophils 0.9 % (0.0-1.0); %Eosinophils 2.0 % (0.0-10.0); %Lymphocytes 35.5 % (21.0-51.0); %Monocytes 9.0 % (0.0-10.0); %Neutrophils 52.0 % (42.0-75.0); Hematocrit 34.8 % (42.0-52.0); Hemoglobin 11.3 g/dL (14.0-18.0); Mean Corpuscular Hemoglobin 27.7 pg (27.0-31.0); Mean Corpuscular Volume 85.3 fL (78.0-98.0); Platelet Count 107 10x3/uL (130-400); Red Blood Cell (RBC) Count 4.08 mill/uL (4.70-6.10); White Blood Cell (WBC) Count 3.44 10x3/uL (4.8-10.8)
[2025-08-06 05:05] LABS: Anion Gap 13 mmol/L (10-20); BUN (Urea Nitrogen) 8 mg/dL (8.9-20.6); Calc. Creatinine Clearance 0 mL/min (70-130); Calcium 8.4 mg/dL (7.8-10.44); Carbon Dioxide 25 mmol/L (22-29); Chloride 103 mmol/L (98-107); Glucose 94 mg/dL (70-105); Potassium 3.4 mmol/L (3.5-5.1); Sodium 138 mmol/L (136-145)
[2025-08-06] MEDS: Pantoprazole 40 MG VIAL IVP SCH (08:32)
[2025-08-06 12:55] VITALS: TEMP 98.2
[2025-08-08] MEDS ORDERED: Thiamine 100 MG TAB PO SCH (09:00)
== END 2025-08-06 15:39 | disposition left against medical advice (07) | DRG 894 ==
LOC: ERS 21:22 → ERHOLD 08-05 07:42 → IMCU/EMU 08-05 13:16
PROVIDERS: ADMIT Internal Medicine; ATTEND Internal Medicine
DX: F10.232 Alcohol dependence with withdrawal with perceptual disturbance (principal); E87.0 Hyperosmolality and hypernatremia; F41.9 Anxiety disorder, unspecified; F43.10 Post-traumatic stress disorder, unspecified; F31.9 Bipolar disorder, unspecified; Z53.29 Procedure and treatment not carried out because of patient's decision for other reasons; F10.229 Alcohol dependence with intoxication, unspecified; D64.9 Anemia, unspecified; I10 Essential (primary) hypertension; G40.909 Epilepsy, unspecified, not intractable, without status epilepticus; E87.5 Hyperkalemia; Z88.8 Allergy status to other drugs, medicaments and biological substances
CPT/HCPCS: 36415; 80048; 80053; 80306; 80307; 82248; 82550; 83690; 83735; 84100; 85025; 93005; J2060; J2405; J2470; J3411; J7120